=== PATIENT | female | born 1985 | race Caucasian/White ===

== ENCOUNTER 2016-10-11 04:55 | Emergency (ER) | payer MEDICAID ==
[2016-10-11 05:03] VITALS: BP 152/103
[2016-10-11] MEDS ORDERED: HYDROmorphone 1 MG/ML Syringe IM ONE (05:20)
[2016-10-11] MEDS ORDERED: Promethazine 25 MG/ML SDV IM ONE (05:22)
--- NOTE | 2016-10-11 05:22 | EDM.PDOC ---
ED HPI Trauma - General Chief Complaint: Upper Extremity Injury/Pain Stated Complaint: INJURED LEFT SHOULDER Time Seen by Provider: 10/11/16 05:15 Source: Reports: Patient History Limitations: Reports: No limitations - History of Present Illness INITIAL COMMENTS - FREE TEXT/NARRATIVE: 31-year-old female presents to the ED with an acute injury to her left anterior shoulder. Patient states that she was walking down the stairs and cat kept her up. She ended up hanging onto the banister with her left hand and the rest of her body continued on down the stairs and she landed on her buttocks. Her left hand remained attached to the banister. She therefore suffered an acute strain to the anterior aspect of her shoulder. Since injury she's not been able to abduct or externally rotate the shoulder. She has a numbness and tingling in the median nerve this nerve distribution i.e. thumb index finger and third finger of the left hand. Her left side of her neck is a bit sore as well but she does remember hitting her head on the stairs. Pain is rated as 10 out of 10 unable to sleep. She claimed that the buttock pain is quite mild.review occurred earlier this morning. Symptom Onset Date: 10/11/16 Occurred When: this morning Occurred Where: home Method of Injury: other (see history of present illness) Severity: severe Consciousness: Reports: no loss of consciousness, remembers incident, remembers coming to hosp Associated Symptoms: Reports: neck pain Allergies/ADRs: Allergies ceftriaxone sodium [From Rocephin] Allergy (Verified 10/11/16 05:03) Anaphylactic Shock cetirizine [From Zyrtec] Allergy (Verified 10/11/16 05:03) Hives diphenhydramine HCl [From Benadryl] Allergy (Verified 10/11/16 05:03) Anaphylactic Shock erythromycin base [Erythromycin Base] Allergy (Verified 10/11/16 05:03) Anaphylactic Shock hydrocodone bitartrate [From Vicodin] Allergy (Verified 10/11/16 05:03) Anaphylactic Shock Penicillins Allergy (Verified 10/11/16 05:03) Anaphylactic Shock prednisone Allergy (Verified 10/11/16 05:03) Anaphylactic Shock Sulfa (Sulfonamide Antibiotics) Allergy (Verified 10/11/16 05:03) Anaphylactic Shock Home Medications: Ambulatory Orders Metoprolol Tartrate [Lopressor] 12.5 mg PO Q12HR #60 tablet 08/09/16 amLODIPine [Norvasc] 10 mg PO DAILY #30 tablet 08/09/16 oxyCODONE HCl/Acetaminophen [Percocet 5-325 mg Tablet] 1 - 2 each PO Q4H PRN # 28 tablet 10/11/16 Past Medical History - Past Health History Medical/Surgical History: Denies Medical/Surgical History Cardiovascular History: Reports: Blood clots/VTE/DVT Other Cardiovascular History: DVT R leg Gastrointestinal History: Reports: Other (see below) Other Gastrointestinal History: adhesion 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 History: Reports: Renal calculus 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 OB/BYN History: 4 c-sections Neurological History: Reports: Headaches, chronic Hematologic History: Reports: Other (see below) (G6PD deficiency) Oncologic (Cancer) History: Reports: Leukemia - Infectious Disease History Infectious Disease History: Reports: Chicken pox - Past Surgical History GI Surgical History: Reports: Appendectomy, Cholecystectomy Female Surgical History: Reports: section, Tubal ligation Neurological Surgical History: Reports: None Musculoskeletal Surgical History: Reports: Other (see below) Other Musculoskeletal Surgeries/Procedures:: right knee pain in past Dermatological Surgical History: Reports: None Social & Family History - Family History Family Medical History: Noncontributory HEENT: Reports: Glaucoma Cardiac: Reports: Hypertension, [place] Neurological: Reports: CVA Oncologic: Reports: Cervix - Tobacco Use Smoking Status *Q: Unknown Ever Smoked Years of Tobacco use: 10 Packs/Tins Daily: 0.2 Used Tobacco, but Quit: No Second Hand Smoke Exposure: Yes - Caffeine Use Caffeine Use: Reports: Tea Other Caffeine Use: a lot everyday - Alcohol Use Days Per Week of Alcohol Use: 0 - Recreational Drug Use Recreational Drug Use: No Drug Use in Last 12 Months: Yes Recreational Drug Type: Reports: Other (see below) Other Recreational Drug Type: edible-marijuana candy in [place] a month ago - Living Situation & Occupation Living situation: Reports: single, with significant other (Fiance), with family (Daughter) Occupation: employed (Part-time at [employer], part-time at [employer] ) Review of Systems - Review of Systems Review Of Systems: See Below Constitutional: Denies: chills, diaphoresis, fever, weakness, other Eyes: Reports: no symptoms Ears: Reports: no symptoms Nose: Reports: no symptoms Mouth/Throat: Reports: no symptoms Respiratory: Reports: no symptoms Cardiovascular: Reports: no symptoms GI/Abdominal: Reports: No symptoms 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: Reports: no symptoms Musculoskeletal: Reports: neck pain, shoulder pain (left side.severe left anterior shoulder pain. See history present illness) Skin: Reports: no symptoms Neurological: Reports: numbness, tingling (in the immediate near distribution left hand. Feels it in her thumb index finger and third finger. This is and she fell with outstretched left hand attached to the banister.) Psychiatric: Reports: no symptoms Trauma Exam - Physical Exam Exam: See Below Exam Limited By: No limitations General Appearance: Reports: alert, WD/WN, moderate distress (appears to be in significant pain. Cleanse her left arm in full internal rotation against her chest.) Head: Reports: atraumatic, normocephalic Neck: Reports: limited range of motion, paraspinous muscle tender (left side particularly adjacent to 6 and 7.), tenderness (left lateral neck adjacent to 6 and 7.) Respiratory Exam: Reports: no respiratory distress, lungs clear, normal breath sounds, no accessory muscle use Cardiovascular: Reports: normal peripheral pulses, regular rate, rhythm, no edema, no murmur Extremities: Reports: other (very limited exam could be performed on the left shoulder at the time of examination due to limited ability to move it. Pain is over the anterior aspect of the true shoulder joint and joint capsule. Also some pain along the distribution of the pectoralis major muscle some tenderness over the coracoid process. He does not appear to be anteriorly dislocated. Suspect strain of pectoralis major and anterior portions of the deltoid due to the nature of her fall. No pain in the knee and sella to suggest teres minor or infraspinatus tear.) Neurologic: Reports: alert, normal mood/affect, oriented x 3, other Skin: Reports: Normal color, Warm/dry - [place] Coma Score Best Eye Response (Becky): (4) open spontaneously Best Verbal Response (Becky): (5) oriented Best Motor Response ([place]): (6) obeys commands [place] Total: 15 Course - Vital Signs Last Recorded V/S: Last Vital Signs Temp 35.9 C 10/11/16 05:01 Pulse 92 03/06/17 05:01 Resp 18 10/11/16 05:01 BP 152/103 H 10/11/16 05:01 Pulse Ox 100 10/11/16 05:01 - Orders/Labs/Meds Orders: Active Orders 24 hr Category Date Time Status Shoulder Comp Lt [CR] Stat Exams 10/11/16 05:19 Taken Meds: Medications Discontinued Medications Generic Name Dose Route Start Last Admin Trade Name Soniya PRN Reason Stop Dose Admin Hydromorphone HCl 1 mg 10/11/16 05:20 10/11/16 05:28 Dilaudid IM 10/11/16 05:21 1 mg ONETIME ONE Administration Promethazine HCl 25 mg 10/11/16 05:22 10/11/16 05:27 Phenergan IM 10/11/16 05:23 25 mg ONETIME ONE Administration - Radiology Interpretation Free Text/Narrative:: 31-year-old female presents to the ED with an acute injury to her left shoulder. She reports she was walking down the stairs and Tripped her up. She reached out to prevent falling with her left hand grabbing the banister. Her body continued to slide down the stairs and she landed hard on her Botox. Her left hand remained attached to the banister resulting in an acute strain of the left anterior aspect of her upper chest and anterior shoulder. She is unable to abduct or externally rotate the shoulder at this time. She keeps the arm in full internal rotation with her hand against her chest. She has good radial and ulnar pulses. She feels paresthesias in the distribution of the median nerve i.e. thumb index finger and third finger of the left hand since she fell. This suggests the possibility of a brachial plexus strain.before any x-rays can be done she will require some pain relief. We'll give her Dilaudid 1 mg IM and Phenergan 25 mg IM for acute pain and nausea relief. X-rays of the left shoulder will then be attempted. It's likely that she is straining the joint capsule and the surrounding musculature versus fracture or dislocation. - Re-Assessments/Exams Free Text/Narrative Re-Assessment/Exam: 10/11/16 06:20pain is better in the left shoulder since she had IM injection of Dilaudid 1 mg and Phenergan 25 mg. She is now able to allow the shoulder and arm to rest at her side. X-rays three-view of the left shoulder have been completed and they do not reveal any bony abnormalities or dislocations. I suspect she has partially strained the pectoralis major muscle where it inserts into the proximal humerus also the anterior deltoid muscle. With her history of paresthesias in the median nerve root distribution she may have contused or stretched or strained part of the brachial plexus as well. Only time will tell whether this settles down. She will be placed in a [id number] for the next 5-7 days or until she has some return of range of motion without pain. Percocet 5 325 one or 2 every 4-6 hours of sleep for pain management x20 tablets provided. Aleve 2 tablets every 8 hours for relief of pain and inflammation as well. Advise follow up with her normal care provider who home I believe is Meena menjivar in about 10 days' time for reassessment. She still has paresthesias she may well need MRI of the neck and brachial plexus show in the shoulder area. Ice pack to the area one half hour of every 4 hours today and tomorrow. Departure - Departure Time of Disposition: 06:22 Disposition: Home, Self-Care 01 Condition: fair Clinical Impression: Brachial plexus neuropathy Muscle strain, shoulder region Qualifiers: Encounter type: initial encounter Laterality: left Qualified Code(s): S46.912A - Strain of unspecified muscle, fascia and tendon at shoulder and upper arm level, left arm, initial encounter Prescriptions: oxyCODONE HCl/Acetaminophen [Percocet 5-325 mg Tablet] 1 - 2 each PO Q4H PRN # 28 tablet PRN Reason: pain relief. Referrals: Meena Menjivar PA [Primary Care Provider] - Forms: ED Department Discharge, Return to Work/School Form Additional Instructions: evaluation in the emergency department today in regards to acute injury to the left anterior shouldersecondary to a fall while going downstairs. The history would suggest a partial tear of the pectoralis major muscle where it inserts into the upper arm bone as well as strain of the anterior deltoid muscles in the front of the shoulder. X-rays of the shoulder were obtained once proper pain control was obtained and it reveals no fractures and normal position of the humeral head without evidence of dislocation. Concern for numbness and tingling in the median nerve distribution to the fingers suggest that the brachioplexus which is a group of nerves traveling into the armpit into the arm down to the hand may have been bruised or contused from the fall and injury. This takes time to heal. Treatment is left shoulder immobilizer for the next 5 days. He makes stop wearing it when she would have return of movement of your arm without tenderness pain in the shoulder. This may well be a full 10 days. Suggest Aleve 2 tablets every 8 hours to reduce pain and inflammation. Ice pack to the armpit one half hour out of every 4 hours today and tomorrow. May use Percocet 5 /325 mg tablets one or 2 every 4-6 hours necessary for pain relief not IV for pain not controlled by Aleve alone. Suggest followup with her normal care provider in 10 days' time. - My Orders Last 24 Hours: My Active Orders 10/11/16 05:19 Shoulder Comp Lt [CR] Stat - Assessment/Plan Last 24 Hours: My Active Orders 10/11/16 05:19 Shoulder Comp Lt [CR] Stat
--- NOTE | 2016-10-11 08:10 | CR ---
Left shoulder: Three views of the left shoulder were obtained. Comparison: No previous shoulder study. Glenohumeral joint and acromioclavicular joint appear unremarkable. No fracture or other abnormality is seen. Impression: 1. No abnormality is identified on three-view left shoulder study. Diagnostic code #1
== END 2016-10-11 06:35 | disposition home or self-care (01) ==
LOC: JD.ED 04:55
DX: S46.912A Strain of unspecified muscle, fascia and tendon at shoulder and upper arm level, left arm, initial encounter (principal); G54.0 Brachial plexus disorders; Z88.0 Allergy status to penicillin; Z88.2 Allergy status to sulfonamides; Z88.1 Allergy status to other antibiotic agents; Z90.49 Acquired absence of other specified parts of digestive tract; Z98.51 Tubal ligation status; Z88.8 Allergy status to other drugs, medicaments and biological substances; W01.0XXA Fall on same level from slipping, tripping and stumbling without subsequent striking against object, initial encounter
CPT/HCPCS: 73030; 96372; 99283; J1170; J2550; 99284

== ENCOUNTER 2016-11-09 04:26 | Emergency (ER) | payer MEDICAID ==
[2016-11-09 04:34] VITALS: BP 144/101
[2016-11-09] MEDS ORDERED: hydrOXYzine HCl 25 MG Tab PO ONE (05:17)
[2016-11-09] MEDS ORDERED: Lidocaine/EPINEPHrine/Tetracaine Soln 1 ML TOP STA (05:45)
--- NOTE | 2016-11-09 05:51 | EDM.PDOC ---
ED HPI Allergic Reaction - General Chief Complaint: Allergic Reaction Stated Complaint: POSS ALLERGIC REACTION Time Seen by Provider: 11/09/16 04:43 Source of Information: Reports: Patient, RN notes reviewed History Limitations: Reports: No limitations - History of Present Illness INITIAL COMMENTS - FREE TEXT/NARRATIVE: The patient states that she developed generalized pruritus around 04:00 this morning, but that it is most intense on her face. She states that she does not wear makeup, and has no idea why she would have this reaction. There is erythema around the patient's mouth and nasolabial folds, likely where the patient has been scratching, otherwise, she does not have any visible lesions. No shortness of breath or wheezing. No symptoms of angioedema. She states that she took a Claritin just after this developed, but that it has not helped. She states that she has had this in the past, but not as severe. She reports allergies to Benadryl, Jennie, Zyrtec, and prednisone. - Related Data Allergies/ADRs: Allergies Allergy/AdvReac Type Severity Reaction Status Date / Time ceftriaxone sodium Allergy Anaphylactic Verified 10/11/16 05:03 [From Rocephin] Shock cetirizine [From Zyrtec] Allergy Hives Verified 10/11/16 05:03 diphenhydramine HCl Allergy Anaphylactic Verified 10/11/16 05:03 [From Benadryl] Shock erythromycin base Allergy Anaphylactic Verified 10/11/16 05:03 [Erythromycin Base] Shock hydrocodone bitartrate Allergy Anaphylactic Verified 10/11/16 05:03 [From Vicodin] Shock Penicillins Allergy Anaphylactic Verified 10/11/16 05:03 Shock prednisone Allergy Anaphylactic Verified 10/11/16 05:03 Shock Sulfa (Sulfonamide Allergy Anaphylactic Verified 10/11/16 05:03 Antibiotics) Shock Home Meds: Home Meds amLODIPine [Norvasc] 10 mg PO DAILY #30 tablet 08/09/16 [Rx] Metoprolol Succinate [Toprol XL] 25 mg PO DAILY 11/09/16 [History] Past Medical History Cardiovascular History: Reports: Blood clots/VTE/DVT Other Cardiovascular History: DVT R leg 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 History: Reports: Renal calculus 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 OB/BYN History: 4 c-sections Neurological History: Reports: Headaches, chronic Endocrine/Metabolic History: Reports: Obesity/BMI 30+ Hematologic History: Reports: Other (see below) (G6PD deficiency) Oncologic (Cancer) History: Reports: Leukemia - Infectious Disease History Infectious Disease History: Reports: Chicken pox - Past Surgical History GI Surgical History: Reports: Appendectomy, Cholecystectomy Female Surgical History: Reports: section, Tubal ligation Neurological Surgical History: Reports: None Musculoskeletal Surgical History: Reports: Other (see below) Other Musculoskeletal Surgeries/Procedures:: right knee pain in past Dermatological Surgical History: Reports: None Social & Family History - Family History Family Medical History: Noncontributory HEENT: Reports: Glaucoma Cardiac: Reports: Hypertension, [place] Neurological: Reports: CVA Oncologic: Reports: Cervix - Tobacco Use Smoking Status *Q: Current Every Day Smoker Years of Tobacco use: 10 Packs/Tins Daily: 0.5 Used Tobacco, but Quit: No Second Hand Smoke Exposure: Yes - Caffeine Use Caffeine Use: Reports: Tea Other Caffeine Use: a lot everyday - Alcohol Use Alcohol Use History: No Days Per Week of Alcohol Use: 0 - Recreational Drug Use Recreational Drug Use: Yes Drug Use in Last 12 Months: Yes Recreational Drug Type: Reports: Other (see below) Other Recreational Drug Type: edible-marijuana candy in [place] a month ago - Living Situation & Occupation Living situation: Reports: single, with significant other (Fiance), with family (Daughter) Occupation: employed (Part-time at [employer]) ED ROS ALLERGIC REACTION - Review of Systems Review Of Systems: See Below Constitutional: Reports: no symptoms HEENT: Reports: No symptoms Respiratory: Reports: No Symptoms Cardiovascular: Reports: No symptoms Endocrine: Reports: no symptoms GI/Abdominal: Reports: Diarrhea (11/04/16), Vomiting (11/04/16) : Reports: no symptoms Musculoskeletal: Reports: no symptoms Skin: Reports: no symptoms Neurological: Reports: No Symptoms Psychiatric: Reports: No symptoms Hematologic/Lymphatic: Reports: no symptoms Immunologic: Reports: no symptoms ED EXAM GENERAL NO PERIP PULSE - Physical Exam Exam: See Below Exam Limited By: No limitations General Appearance: alert, WD/WN, no apparent distress Eye Exam: bilateral eye: EOMI, normal inspection Ears: normal external exam, hearing grossly normal Nose: normal inspection, no blood Throat/Mouth: Normal inspection, Normal lips, Normal teeth, Normal gums, Normal oropharynx, Normal voice, No airway compromise Head: atraumatic, normocephalic Neck: normal inspection, full range of motion Respiratory/Chest: no respiratory distress, lungs clear, normal breath sounds, no accessory muscle use Cardiovascular: normal peripheral pulses, regular rate, rhythm, no gallop, no JVD, no murmur, no rub GI/Abdominal: normal bowel sounds, soft, non tender, no organomegaly, no distention, no abnormal bruit, no mass, other (Obese) Back Exam: normal inspection Extremities: normal inspection, normal range of motion, no pedal edema, normal capillary refill Neurological: alert, oriented, normal cognition, no motor/sensory deficits Psychiatric: normal affect Skin Exam: Warm, Dry, Intact, Normal color, Erythema (around mouth and nasolabial folds. Remainder of face without lesions.) Lymphatic: no adenopathy Course - Vital Signs Last Recorded V/S: Last Vital Signs Temp 36.4 C 11/09/16 04:32 Pulse 83 11/09/16 04:32 Resp 16 11/09/16 04:32 BP 144/101 H 11/09/16 04:32 Pulse Ox 100 11/09/16 04:32 - Orders/Labs/Meds Meds: Medications Discontinued Medications Generic Name Dose Route Start Last Admin Trade Name Freq PRN Reason Stop Dose Admin Hydroxyzine HCl 25 mg 11/09/16 05:17 11/09/16 05:29 Atarax PO 11/09/16 05:18 25 mg ONETIME ONE Administration Lidocaine/Tetracaine 2 ml 11/09/16 05:45 11/09/16 05:48 Let Soln TOP 11/09/16 05:46 2 ml ONETIME STA Administration - Re-Assessments/Exams Free Text/Narrative Re-Assessment/Exam: 11/09/16 05:52 The cause of the patient's urticaria is unknown. She has been given oral hydroxyzine 25 mg, so far without relief. I have ordered some topical LET to the erythematous areas on her face, where she is most pruritic, to see if that helps, however, if it does not, the patient may need to see an health care law specialist, as she reports allergies to numerous medicines, including prednisone, and the treatment of idiopathic pruritus may be beyond the abilities of an ED. 11/09/16 06:11 The patient reports substantial improvement in her facial pruritus following the application of LET, and the erythema around her mouth and nasolabial folds has resolved. I will refer her to an Wall Man. Departure - Departure Time of Disposition: 06:11 Disposition: Home, Self-Care 01 Condition: good Clinical Impression: Generalized pruritus Referrals: Tr Ivory MD [Ordering Only Provider] - Forms: ED Department Discharge Additional Instructions: You were seen in the emergency room this morning for itchiness all over, particularly on your face. Your symptoms significantly improved after treatment with the antihistamine hydroxyzine, and application of LET to your face. Until this episode has resolved, try to avoid heat, as that tends to make itchiness worse. We are recommending that you be evaluated by an [facility] Man. Please followup with Dr. Ivory at the next available appointment. If any other problems, please do not hesitate to return to the ER.
== END 2016-11-09 06:20 | disposition home or self-care (01) ==
LOC: JD.ED 04:26
DX: L29.9 Pruritus, unspecified (principal); F17.210 Nicotine dependence, cigarettes, uncomplicated; E66.9 Obesity, unspecified; Z68.30 Body mass index [BMI] 30.0-30.9, adult; Z86.718 Personal history of other venous thrombosis and embolism; Z85.6 Personal history of leukemia; Z79.899 Other long term (current) drug therapy; Z88.0 Allergy status to penicillin; Z88.2 Allergy status to sulfonamides; Z88.8 Allergy status to other drugs, medicaments and biological substances; Z90.49 Acquired absence of other specified parts of digestive tract; Z98.890 Other specified postprocedural states; Z88.1 Allergy status to other antibiotic agents
CPT/HCPCS: 99283; A9270

== ENCOUNTER 2016-12-21 23:52 | Emergency (ER) | payer MEDICAID ==
[2016-12-22 00:06] VITALS: BP 156/94
[2016-12-22] MEDS ORDERED: Cephalexin 500 MG Cap PO ONE (00:34)
[2016-12-22] MEDS ORDERED: Ibuprofen 600 MG Tab PO ONE (00:35)
--- NOTE | 2016-12-22 00:41 | EDM.PDOC ---
ED HPI GENERAL MEDICAL PROBLEM - General Chief Complaint: Laceration Stated Complaint: CUT ON RIGHT THIGH Time Seen by Provider: 12/22/16 00:06 Source of Information: Reports: Patient, RN Notes Reviewed History Limitations: Reports: No Limitations - History of Present Illness INITIAL COMMENTS - FREE TEXT/NARRATIVE: The patient states that she was cleaning a shelf in her bedroom, when her cat jumped up, knocking a hunting knife of her boyfriends off the shelf. The knife stabbed into her right inner thigh. She is otherwise uninjured. The patient states that her last tetanus vaccination was in 2013. Right Leg Pain Score (Numeric/FACES): 7 - Related Data Allergies Allergy/AdvReac Type Severity Reaction Status Date / Time ceftriaxone sodium Allergy Anaphylactic Verified 12/22/16 00:07 [From Rocephin] Shock cetirizine [From Zyrtec] Allergy Hives Verified 12/22/16 00:07 diphenhydramine HCl Allergy Anaphylactic Verified 12/22/16 00:07 [From Benadryl] Shock erythromycin base Allergy Anaphylactic Verified 12/22/16 00:07 [Erythromycin Base] Shock hydrocodone bitartrate Allergy Anaphylactic Verified 12/22/16 00:07 [From Vicodin] Shock Penicillins Allergy Anaphylactic Verified 12/22/16 00:07 Shock prednisone Allergy Anaphylactic Verified 12/22/16 00:07 Shock Sulfa (Sulfonamide Allergy Anaphylactic Verified 12/22/16 00:07 Antibiotics) Shock Home Meds: Home Meds amLODIPine [Norvasc] 10 mg PO DAILY #30 tablet 08/09/16 [Rx] Metoprolol Succinate [Toprol XL] 25 mg PO DAILY 11/09/16 [History] Cephalexin [Keflex] 1 tab PO Q12H #14 capsule 12/22/16 [Rx] Past Medical History Cardiovascular History: Reports: Blood Clots/VTE/DVT (RLE) 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 History: Reports: Renal Calculus 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: Neurological History: Reports: Headaches, Chronic Endocrine/Metabolic History: Reports: Obesity/BMI 30+ Hematologic History: Reports: Anemia Oncologic (Cancer) History: Reports: Leukemia - Infectious Disease History Infectious Disease History: Reports: Chicken Pox - Past Surgical History GI Surgical History: Reports: Appendectomy, Cholecystectomy Female Surgical History: Reports: Section (x 4), Tubal Ligation Musculoskeletal Surgical History: Reports: Other (See Below) (Ankle surgery) Social & Family History - Family History Family Medical History: Noncontributory HEENT: Reports: Glaucoma Cardiac: Reports: Hypertension, [place] Neurological: Reports: CVA Oncologic: Reports: Cervix - Tobacco Use Smoking Status *Q: Current Some Day Smoker Years of Tobacco use: 17 Packs/Tins Daily: 0.5 Used Tobacco, but Quit: No Second Hand Smoke Exposure: Yes - Caffeine Use Caffeine Use: Reports: Coffee Other Caffeine Use: a lot everyday - Alcohol Use Days Per Week of Alcohol Use: 0 - Recreational Drug Use Recreational Drug Use: No Drug Use in Last 12 Months: Yes Recreational Drug Type: Reports: Other (see below) Other Recreational Drug Type: edible-marijuana candy in [place] a month ago - Living Situation & Occupation Living situation: Reports: Single, with Significant Other, with Family Occupation: Employed ED ROS GENERAL - Review of Systems Review Of Systems: See Below Constitutional: Reports: No Symptoms HEENT: Reports: No Symptoms Respiratory: Reports: No Symptoms Cardiovascular: Reports: No Symptoms Endocrine: Reports: No Symptoms GI/Abdominal: Reports: No Symptoms : Reports: No Symptoms Musculoskeletal: Reports: No Symptoms Skin: Reports: No Symptoms Neurological: Reports: No Symptoms Psychiatric: Reports: No Symptoms Hematologic/Lymphatic: Reports: No Symptoms Immunologic: Reports: No Symptoms ED EXAM, SKIN/RASH Exam: See Below Exam Limited By: No Limitations General Appearance: Alert, WD/WN, No Apparent Distress Extremities: Other (Approximately 0.75 cm wound to the inner right thigh, just distal to half way down. The wound appears to be clean, and is not currently bleeding. No associated swelling, ecchymosis, or abrasions. Neurovascular status of the right lower study is intact.) Course - Vital Signs Last Recorded V/S: Last Vital Signs Temp 37.5 C 12/22/16 00:00 Pulse 89 12/22/16 00:00 Resp 20 12/22/16 00:00 BP 156/94 H 12/22/16 00:00 Pulse Ox 100 12/22/16 00:00 - Orders/Labs/Meds Meds: Medications Discontinued Medications Generic Name Dose Route Start Last Admin Trade Name Freq PRN Reason Stop Dose Admin Cephalexin 500 mg 12/22/16 00:34 12/22/16 00:39 Keflex PO 12/22/16 00:35 500 mg ONETIME ONE Administration Ibuprofen 600 mg 12/22/16 00:35 12/22/16 00:39 Motrin PO 12/22/16 00:36 600 mg ONETIME ONE Administration - Re-Assessments/Exams Free Text/Narrative Re-Assessment/Exam: 12/22/16 00:35 The patient has a puncture wound to her right inner thigh. Closure is contraindicated. The wound is not actively bleeding. I will have the nurse apply a clean dressing. I will start the patient on Keflex. Departure - Departure Time of Disposition: 00:36 Disposition: Home, Self-Care 01 Condition: good Clinical Impression: Puncture wound of right thigh - Discharge Information Prescriptions: Cephalexin [Keflex] 1 tab PO Q12H #14 capsule Referrals: Meena Thapa PA [Primary Care Provider] - Forms: ED Department Discharge Additional Instructions: You were seen in the emergency room after accidentally being cut on your right thigh by a hunting knife that fell. On examination, you have a puncture wound. This wound was not sutured closed, because that would increase the likelihood of an infection. Keep the wound clean with ordinary soap and water, then apply a clean dressing, daily. You have been started on the antibiotic Keflex. Take one tablet every 12 hours , as prescribed. Finish the entire prescription unless told otherwise by a doctor. Take [id number] ibuprofen 2-3 tablets (400-600 mg) every 8 hours, with food, as needed for discomfort. Followup with your PCP, Meena Thapa, for any concerns. If any other problems, please do not hesitate to return to the ER.
== END 2016-12-22 00:55 | disposition home or self-care (01) ==
LOC: JD.ED 23:52
DX: S71.131A Puncture wound without foreign body, right thigh, initial encounter (principal); W26.0XXA Contact with knife, initial encounter; E66.9 Obesity, unspecified; D64.9 Anemia, unspecified; F17.210 Nicotine dependence, cigarettes, uncomplicated; Z85.6 Personal history of leukemia; Z86.718 Personal history of other venous thrombosis and embolism; Z90.49 Acquired absence of other specified parts of digestive tract; Z79.899 Other long term (current) drug therapy; Z88.2 Allergy status to sulfonamides; Z98.890 Other specified postprocedural states; Z88.0 Allergy status to penicillin; Z88.1 Allergy status to other antibiotic agents; Z88.8 Allergy status to other drugs, medicaments and biological substances
CPT/HCPCS: 99283; A9270

== ENCOUNTER 2017-04-14 23:17 | Emergency (ER) | payer MEDICAID ==
[2017-04-14 23:29] VITALS: BP 151/108
--- NOTE | 2017-04-15 00:11 | EDM.PDOC ---
ED HPI GENERAL MEDICAL PROBLEM - General Chief Complaint: Chest Pain Stated Complaint: CHEST PAIN Time Seen by Provider: 04/14/17 23:37 Source of Information: Reports: Patient, RN Notes Reviewed History Limitations: Reports: No Limitations - History of Present Illness INITIAL COMMENTS - FREE TEXT/NARRATIVE: The patient states that she developed a headache around 22:30 tonight, followed by sudden onset left anterior chest pain around 23:00. She reports the character as a pressure or squeezing pain, not discomfort. She states that it radiates across her chest to the right, then up the right side of her neck to her jaw. Pain is worse if she takes a deep breath, but the pain is not modified by body position. She reports some on and off nausea, but denies dyspnea, diaphoresis, and sense of impending doom. She states that she feels hot and cold. She states that she had the same chest pain on 08/07/2016. She states that she was seen in this ED, admitted to the hospital, but her workup was negative. The patient's PCP is either Meena Thapa or Radha Leong. Mid-Sternal Chest Pain Score (Numeric/FACES): 7 - Related Data Allergies Allergy/AdvReac Type Severity Reaction Status Date / Time ceftriaxone sodium Allergy Anaphylactic Verified 04/14/17 23:25 [From Rocephin] Shock cetirizine [From Zyrtec] Allergy Hives Verified 04/14/17 23:25 diphenhydramine HCl Allergy Anaphylactic Verified 04/14/17 23:25 [From Benadryl] Shock erythromycin base Allergy Anaphylactic Verified 04/14/17 23:25 [Erythromycin Base] Shock hydrocodone bitartrate Allergy Anaphylactic Verified 04/14/17 23:25 [From Vicodin] Shock Penicillins Allergy Anaphylactic Verified 04/14/17 23:25 Shock prednisone Allergy Anaphylactic Verified 04/14/17 23:25 Shock Sulfa (Sulfonamide Allergy Anaphylactic Verified 04/14/17 23:25 Antibiotics) Shock Home Meds: Home Meds Metoprolol Succinate [Toprol XL] 25 mg PO DAILY 11/09/16 [History] Orphenadrine [Norflex] 1 tab PO Q12H #10 tab.er 04/15/17 [Rx] Past Medical History Cardiovascular History: Reports: Blood Clots/VTE/DVT (left calf DVT), Hypertension 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 History: Reports: Renal Calculus 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: Neurological History: Reports: Headaches, Chronic Endocrine/Metabolic History: Reports: Obesity/BMI 30+ Hematologic History: Reports: Anemia, Blood Transfusion(s) Oncologic (Cancer) History: Reports: Leukemia - Infectious Disease History Infectious Disease History: Reports: Chicken Pox - Past Surgical History HEENT Surgical History: Reports: Oral Surgery ([place] teeth extraction) Cardiovascular Surgical History: Reports: Vascular Surgery (Left leg thrombectomy) GI Surgical History: Reports: Appendectomy, Cholecystectomy Female Surgical History: Reports: Section (x 4), Tubal Ligation Musculoskeletal Surgical History: Reports: ORIF (Left ankle) Social & Family History - Family History Family Medical History: Noncontributory HEENT: Reports: Glaucoma Cardiac: Reports: Hypertension, [place] Neurological: Reports: CVA Oncologic: Reports: Cervix - Tobacco Use Smoking Status *Q: Current Every Day Smoker Years of Tobacco use: 13 Packs/Tins Daily: 0.3 Packs/Tins Daily Comment: Down from 1 ppd - Caffeine Use Caffeine Use: Reports: Coffee Other Caffeine Use: a lot everyday - Alcohol Use Alcohol Use History: Yes Days Per Week of Alcohol Use: 0 Alcohol Use Frequency: Rarely - Recreational Drug Use Recreational Drug Use: Yes Drug Use in Last 12 Months: Yes Recreational Drug Type: Reports: Marijuana/Hashish (when visits [place]) - Living Situation & Occupation Living situation: Reports: Single, with Significant Other (Fiance), with Family (Daughter) Occupation: Unemployed ED ROS GENERAL - Review of Systems Review Of Systems: See Below Constitutional: Reports: No Symptoms HEENT: Reports: No Symptoms Respiratory: Reports: No Symptoms Cardiovascular: Reports: No Symptoms Endocrine: Reports: No Symptoms GI/Abdominal: Reports: No Symptoms : Reports: No Symptoms Musculoskeletal: Reports: No Symptoms Skin: Reports: No Symptoms Neurological: Reports: No Symptoms Psychiatric: Reports: No Symptoms Hematologic/Lymphatic: Reports: No Symptoms Immunologic: Reports: No Symptoms ED EXAM, GENERAL - Physical Exam Exam: See Below Exam Limited By: No Limitations General Appearance: Alert, WD/WN, No Apparent Distress Eye Exam: Bilateral Eye: Normal Inspection Ears: Normal External Exam, Hearing Grossly Normal Nose: Normal Inspection, No Blood Throat/Mouth: Normal Inspection, Normal Lips, Normal Voice, No Airway Compromise Head: Atraumatic, Normocephalic Neck: Normal Inspection, Full Range of Motion Respiratory/Chest: No Respiratory Distress, Lungs Clear, Normal Breath Sounds, No Accessory Muscle Use, Other (Reproducible tenderness to palpation of the left pectoralis muscle. Pain is induced in the right chest and right neck with pressing hands together in front of her chest. Pain is reproduced on the left with crossing the left upper extremity across the chest.). No: Crackles, Rhonchi, Wheezing, Pleural Rub Cardiovascular: Normal Peripheral Pulses, Regular Rate, Rhythm, No Gallop, No JVD, No Murmur, No Rub GI/Abdominal: Normal Bowel Sounds, Soft, Non-Tender, No Organomegaly, No Distention, No Abnormal Bruit, No Mass, Other (Obese) (Female) Exam: Deferred Rectal (Female) Exam: Deferred Back Exam: Normal Inspection, Full Range of Motion, NT Extremities: Normal Inspection, Normal Range of Motion, No Pedal Edema, Normal Capillary Refill Neurological: Alert, Oriented, Normal Cognition, No Motor/Sensory Deficits Psychiatric: Normal Affect Skin Exam: Warm, Dry, Intact, Normal Color, No Rash Course - Vital Signs Last Recorded V/S: Last Vital Signs Temp 37.1 C 04/14/17 23:26 Pulse 88 04/14/17 23:26 Resp 22 H 04/14/17 23:26 BP 151/108 H 04/14/17 23:26 Pulse Ox 97 04/14/17 23:26 - Orders/Labs/Meds Orders: Active Orders 24 hr Category Date Time Status Chest 2V [CR] Stat Exams 04/15/17 00:04 Taken Orphenadrine [Norflex] Med 04/15/17 00:32 Stat 100 mg PO ONETIME STA - Re-Assessments/Exams Free Text/Narrative Re-Assessment/Exam: 04/15/17 00:29 Two-view chest radiograph appears to be grossly normal. Cardiac silhouette is within normal limits. No pulmonary vascular congestion. No pleural effusions. No focal infiltrate. No pneumothorax. Formal read per the Radiologist pending. 04/15/17 00:32 Chest x-ray results discussed with the patient. The patient's left sided chest pain radiating to the right, and up the neck appear to be musculoskeletal in etiology. Her headache may very well be a tension-type, as well. I am going to start the patient on Norflex, and e-prescribe a few days of the same. Departure - Departure Time of Disposition: 00:33 Disposition: Home, Self-Care 01 Condition: Good Clinical Impression: Musculoskeletal chest pain, Tension type headache - Discharge Information Referrals: Ynes Leong PA [Primary Care Provider] - Forms: ED Department Discharge Additional Instructions: You were seen in the emergency room for left-sided chest pain that radiated to your right chest and up the right side of her neck, along with a headache. Workup in the ER included a chest x-ray, which was normal. Based on your history and physical examination, your symptoms are MOST LIKELY due to a muscle spasm. You have been started on the muscle relaxant Norflex. Take one tablet every 12 hours, as prescribed. You may also take [id number] Tylenol or ibuprofen as needed for discomfort. Follow-up with your PCP, Meena Thapa or Radha Leong, as needed. If any other problems, please do not hesitate to return to the ER. - My Orders Last 24 Hours: My Active Orders 04/15/17 00:04 Chest 2V [CR] Stat 04/15/17 00:32 Orphenadrine [Norflex] 100 mg PO ONETIME STA - Assessment/Plan Last 24 Hours: My Active Orders 04/15/17 00:04 Chest 2V [CR] Stat 04/15/17 00:32 Orphenadrine [Norflex] 100 mg PO ONETIME STA
[2017-04-15] MEDS ORDERED: Orphenadrine 100 MG Tab.ER PO STA (00:32)
--- NOTE | 2017-04-15 08:33 | CR ---
Chest: Two views of the chest were obtained. Comparison: Prior chest x-ray and chest CT of 08/08/16. Heart size and mediastinum are normal. Lungs are clear. Bony structures appear within normal limits. Surgical clips are noted from prior cholecystectomy. Impression: 1. Nothing acute is identified on two-view chest x-ray. Diagnostic code #1
== END 2017-04-15 00:45 | disposition home or self-care (01) ==
LOC: JD.ED 23:17
DX: R07.89 Other chest pain (principal); G44.209 Tension-type headache, unspecified, not intractable; E66.9 Obesity, unspecified; I10 Essential (primary) hypertension; F17.210 Nicotine dependence, cigarettes, uncomplicated; Z90.49 Acquired absence of other specified parts of digestive tract; Z88.8 Allergy status to other drugs, medicaments and biological substances; Z88.1 Allergy status to other antibiotic agents; Z88.0 Allergy status to penicillin; Z88.2 Allergy status to sulfonamides; Z79.899 Other long term (current) drug therapy; Z87.442 Personal history of urinary calculi; Z86.2 Personal history of diseases of the blood and blood-forming organs and certain disorders involving the immune mechanism; Z68.33 Body mass index [BMI] 33.0-33.9, adult
CPT/HCPCS: 71020; 99285; A9270; 99284

== ENCOUNTER 2017-06-26 18:17 | Emergency (ER) | payer MEDICAID ==
[2017-06-26 18:37] VITALS: BP 180/126
[2017-06-26] MEDS ORDERED: Doxycycline 100 MG Cap PO ONE (19:39)
--- NOTE | 2017-06-26 19:43 | EDM.PDOC ---
ED HPI GENERAL MEDICAL PROBLEM - General Chief Complaint: Skin Complaint Stated Complaint: WOUND ON STOMACH Time Seen by Provider: 06/26/17 19:25 Source of Information: Reports: Patient History Limitations: Reports: No Limitations - History of Present Illness INITIAL COMMENTS - FREE TEXT/NARRATIVE: 32 year old female presents for evaluation and treatment of a a bug bit to the left lower abdomen. First appreciated an area or pruritus and discomfort to the left lower abdomen on Tuesday. She believes she was bitten by a bug but did not witness any big bites. Reports today he area has now become painful, warm and erythematous. Reports prior to arrival in the ER the area opened and began draining pus. Reports associated symptoms of chills, nausea, bodyaches and malaise. No fevers or vomiting. No history of cellulites and abscesses. No history of MRSA. No history of diabetes. Generalized Pain Score (Numeric/FACES): 6 - Related Data Allergies Allergy/AdvReac Type Severity Reaction Status Date / Time ceftriaxone sodium Allergy Anaphylactic Verified 06/26/17 18:33 [From Rocephin] Shock cetirizine [From Zyrtec] Allergy Hives Verified 06/26/17 18:33 diphenhydramine HCl Allergy Anaphylactic Verified 06/26/17 18:33 [From Benadryl] Shock erythromycin base Allergy Anaphylactic Verified 06/26/17 18:33 [Erythromycin Base] Shock hydrocodone bitartrate Allergy Anaphylactic Verified 06/26/17 18:33 [From Vicodin] Shock Penicillins Allergy Anaphylactic Verified 06/26/17 18:33 Shock prednisone Allergy Anaphylactic Verified 06/26/17 18:33 Shock Sulfa (Sulfonamide Allergy Anaphylactic Verified 06/26/17 18:33 Antibiotics) Shock Home Meds: Home Meds Doxycycline [Vibramycin] 100 mg PO Q12HR #19 cap 06/26/17 [Rx] Past Medical History Cardiovascular History: Reports: Hypertension 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 History: Reports: Renal Calculus 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: Neurological History: Reports: Headaches, Chronic Endocrine/Metabolic History: Reports: Obesity/BMI 30+ Hematologic History: Reports: Anemia, Blood Transfusion(s) Oncologic (Cancer) History: Reports: Leukemia - Infectious Disease History Infectious Disease History: Reports: Chicken Pox - Past Surgical History HEENT Surgical History: Reports: Oral Surgery GI Surgical History: Reports: Appendectomy, Cholecystectomy Female Surgical History: Reports: Section, Tubal Ligation Other Female Surgeries/Procedures: c secx4 Musculoskeletal Surgical History: Reports: ORIF Dermatological Surgical History: Reports: None Social & Family History - Family History Family Medical History: Noncontributory HEENT: Reports: Glaucoma Cardiac: Reports: Hypertension, [place] Neurological: Reports: CVA Oncologic: Reports: Cervix - Tobacco Use Smoking Status *Q: Current Every Day Smoker Years of Tobacco use: 10 Packs/Tins Daily: 0.4 - Caffeine Use Caffeine Use: Reports: Soda Other Caffeine Use: a lot everyday - Alcohol Use Days Per Week of Alcohol Use: 0 - Recreational Drug Use Recreational Drug Use: No Drug Use in Last 12 Months: Yes Recreational Drug Type: Reports: Marijuana/Hashish (when visits [place]) - Living Situation & Occupation Living situation: Reports: Single, with Significant Other (Fiance), with Family (Daughter) Occupation: Unemployed ED ROS GENERAL - Review of Systems Review Of Systems: See Below Constitutional: Reports: Chills, Malaise, Other (body aches). Denies: Fever GI/Abdominal: Reports: Nausea. Denies: Vomiting Skin: Reports: Erythema (lower abdomen), Wound (lower abdomen) ED EXAM, SKIN/RASH Exam: See Below Exam Limited By: No Limitations General Appearance: Alert, WD/WN, No Apparent Distress Respiratory/Chest: No Respiratory Distress Neurological: Alert, Oriented, Normal Cognition Psychiatric: Normal Affect, Normal Mood Skin: Warm, Dry, Normal Color, Erythema (approximatley 15cm x 8cm area of erythema to the left lower abdomen with a central golf ball sized indurated marin ; a 1.5 cm open area is in hte center and draining prurlent materaial) Location, Skin: Abdomen Characteristics: Erythematous Associated features: Warmth, Tenderness, Induration, Weeping Course - Vital Signs Last Recorded V/S: Last Vital Signs Temp 37.6 C 06/26/17 18:33 Pulse 115 H 06/26/17 18:33 Resp 17 06/26/17 18:33 BP 180/126 H 06/26/17 18:33 Pulse Ox 98 06/26/17 18:33 - Orders/Labs/Meds Meds: Medications Discontinued Medications Generic Name Dose Route Start Last Admin Trade Name Freq PRN Reason Stop Dose Admin Doxycycline Hyclate 200 mg 06/26/17 19:39 06/26/17 19:43 Vibramycin PO 06/26/17 19:40 200 mg ONETIME ONE Administration - Re-Assessments/Exams Free Text/Narrative Re-Assessment/Exam: 06/26/17 19:36 culture obtained. Will start doxycycline. Follow-up wiht PCP. Discharge instructions as documented. Departure - Departure Time of Disposition: 19:40 Disposition: Home, Self-Care 01 Condition: Fair Clinical Impression: Cellulitis and abscess of trunk - Discharge Information Prescriptions: Doxycycline [Vibramycin] 100 mg PO Q12HR #19 cap Instructions: Cellulitis, Adult Referrals: Ynes Leong PA [Primary Care Provider] - Forms: ED Department Discharge Additional Instructions: Doxycycline 1 tab twice a day for 10 days. your first dose given in the ER. Start your perception tomorrow. [id number] Tylenol or Motrin as needed for pain relief. Follow-up with your primary care provider in one week for recheck of your symptoms. Warm compresses to the area 4 or 5 times a day for 10-15 minutes Keep the wound covered. Please return to the ER if your symptoms change or worsen.
== END 2017-06-26 19:54 | disposition home or self-care (01) ==
LOC: JD.ED 18:17
DX: L03.311 Cellulitis of abdominal wall (principal); L02.211 Cutaneous abscess of abdominal wall; B95.7 Other staphylococcus as the cause of diseases classified elsewhere; F17.210 Nicotine dependence, cigarettes, uncomplicated; I10 Essential (primary) hypertension; Z88.0 Allergy status to penicillin; Z88.2 Allergy status to sulfonamides; Z88.1 Allergy status to other antibiotic agents; Z88.8 Allergy status to other drugs, medicaments and biological substances
CPT/HCPCS: 87070; 87186; 99283; A9270

== ENCOUNTER 2017-09-02 01:55 | Emergency (ER) | payer MEDICAID ==
[2017-09-02 02:06] VITALS: BP 182/114
--- NOTE | 2017-09-02 03:19 | EDM.PDOC ---
ED HPI GENERAL MEDICAL PROBLEM - General Chief Complaint: Chest Pain Stated Complaint: [facility] Time Seen by Provider: 09/02/17 02:25 Source of Information: Reports: Patient History Limitations: Reports: No Limitations - History of Present Illness INITIAL COMMENTS - FREE TEXT/NARRATIVE: The patient states that she developed chest pressure, felt from her right chest through to her left chest, her left shoulder, and left scapular area around 10: 00 yesterday, 09/01/2017. It became a pain around 14:00. She developed the sensation of having an elevated heart rate around 17:00, then developed nausea and emesis around 22:30. She denies having associated dyspnea, diaphoresis, or sense of impending doom. No prior similar symptoms. The patient has a history of a left lower extremity DVT in 2008, associated with . She denies having recent lower extremity swelling or discomfort. The patient has a history of hypertension, but is off her antihypertensive medication, citing insurance issues. The patient's PCP is Ynes Loeng. Left Chest Pain Score (Numeric/FACES): 5 - Related Data Allergies Allergy/AdvReac Type Severity Reaction Status Date / Time aspirin Allergy Vomiting Verified 09/02/17 02:03 ceftriaxone sodium Allergy Anaphylactic Verified 09/02/17 02:02 [From Rocephin] Shock cetirizine [From Zyrtec] Allergy Hives Verified 09/02/17 02:02 diphenhydramine HCl Allergy Anaphylactic Verified 09/02/17 02:02 [From Benadryl] Shock erythromycin base Allergy Anaphylactic Verified 09/02/17 02:02 [Erythromycin Base] Shock hydrocodone bitartrate Allergy Anaphylactic Verified 09/02/17 02:02 [From Vicodin] Shock Penicillins Allergy Anaphylactic Verified 09/02/17 02:02 Shock prednisone Allergy Anaphylactic Verified 09/02/17 02:02 Shock Sulfa (Sulfonamide Allergy Anaphylactic Verified 09/02/17 02:02 Antibiotics) Shock Home Meds: Home Meds . 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) - Infectious Disease History Infectious Disease History: Reports: Chicken Pox - Past Surgical History HEENT Surgical History: Reports: Oral Surgery ([place] teeth extraction) Cardiovascular Surgical History: Reports: Vascular Surgery (Left leg thrombectomy) GI Surgical History: Reports: Appendectomy, Cholecystectomy Female Surgical History: Reports: Section (x 4), Tubal Ligation Musculoskeletal Surgical History: Reports: ORIF (left ankle) Dermatological Surgical History: Reports: None Social & Family History - Family History Family Medical History: Noncontributory HEENT: Reports: Glaucoma Cardiac: Reports: Hypertension, [place] Neurological: Reports: CVA Oncologic: Reports: Cervix - Tobacco Use Smoking Status *Q: Current Every Day Smoker Years of Tobacco use: 15 Packs/Tins Daily: 0.5 Packs/Tins Daily Comment: Down from 1 ppd - Caffeine Use Caffeine Use: Reports: Soda Other Caffeine Use: a lot everyday - Alcohol Use Alcohol Use History: Yes Alcohol Use Frequency: Socially - Recreational Drug Use Recreational Drug Use: Yes Drug Use in Last 12 Months: Yes Recreational Drug Type: Reports: Marijuana/Hashish (last = July 2017) - Living Situation & Occupation Living situation: Reports: Single, with Significant Other (Fiance) Occupation: Employed ([employer]) ED ROS GENERAL - Review of Systems Review Of Systems: ROS reveals no pertinent complaints other than HPI. ED EXAM, GENERAL - Physical Exam Exam: See Below Exam Limited By: No Limitations General Appearance: Alert, WD/WN, No Apparent Distress Eye Exam: Bilateral Eye: Normal Inspection Ears: Normal External Exam, Hearing Grossly Normal Nose: Normal Inspection, No Blood Throat/Mouth: Normal Inspection, Normal Lips, Normal Voice, No Airway Compromise Head: Atraumatic, Normocephalic Neck: Normal Inspection, Full Range of Motion Respiratory/Chest: No Respiratory Distress, Lungs Clear, Normal Breath Sounds, No Accessory Muscle Use Cardiovascular: Normal Peripheral Pulses, No Edema, No Gallop, No JVD, No Murmur , No Rub, Tachycardia (regular) Peripheral Pulses: 4+: Radial (L), Radial (R) GI/Abdominal: Normal Bowel Sounds, Soft, Non-Tender, No Organomegaly, No Distention, No Abnormal Bruit, No Mass, Other (Obese) (Female) Exam: Deferred Rectal (Female) Exam: Deferred Back Exam: Normal Inspection, Full Range of Motion, NT Extremities: Normal Inspection, Normal Range of Motion, Non-Tender, Normal Capillary Refill, No Pedal Edema Neurological: Alert, Oriented, Normal Cognition, No Motor/Sensory Deficits Psychiatric: Normal Affect Skin Exam: Warm, Dry, Intact, Normal Color, No Rash EKG INTERPRETATION EKG Date: 09/02/17 Time: 02:46 Rhythm: NSR Rate (Beats/Min): 88 [place]: Normal P-Wave: Present QRS: Normal ST-T: Normal QT: Normal Comparison: No Change (08/08/2016) Course - Vital Signs Last Recorded V/S: Last Vital Signs Temp 36.6 C 09/02/17 02:03 Pulse 103 H 09/02/17 02:03 Resp 19 09/02/17 02:03 BP 182/114 H 09/02/17 02:03 Pulse Ox 97 09/02/17 02:03 - Orders/Labs/Meds Orders: Active Orders 24 hr Category Date Time Status EKG Documentation Completion [RC] STAT Care 09/02/17 02:36 Active Chest 2V [CR] Stat Exams 09/02/17 02:36 Taken Labs: Laboratory Tests 09/02/17 09/02/17 09/02/17 Range/Units 02:10 02:10 02:10 WBC 12.11 H (3.98-10.04) K/mm3 RBC 4.90 (3.98-5.22) M/mm3 Hgb 14.0 (11.2-15.7) gm/L Hct 40.1 (34.1-44.9) % MCV 81.8 (79.4-94.8) fl MCH 28.6 (25.6-32.2) pg MCHC 34.9 (32.2-35.5) g/dl RDW Std Deviation 39.8 (36.4-46.3) fL Plt Count 260 (182-369) K/mm3 MPV 11.0 (9.4-12.3) fl Neutrophils % (Manual) 62 H (40-60) % Band Neutrophils % 0 (0-10) % Lymphocytes % (Manual) 34 (20-40) % Atypical Lymphs % 0 % Monocytes % (Manual) 4 (2-10) % Eosinophils % (Manual) 0 L (0.7-5.8) % Basophils % (Manual) 0 L (0.1-1.2) Platelet Estimate Adequate Plt Morphology Comment Normal RBC Morph Comment Normal PT 9.6 (8.0-13.0) SECONDS INR 0.89 APTT 26 (22-36) SECONDS D-Dimer, Quantitative 0.22 (0.19-0.59) mg/L Sodium 140 (136-145) mEq/L Potassium 3.4 L (3.5-5.1) mEq/L Chloride 106 (98-107) mEq/L Carbon Dioxide 21 (21-32) mEq/L Anion Gap 16.4 H (5-15) BUN 13 (7-18) mg/dL Creatinine 0.9 (0.55-1.02) mg/dL Est Cr Clr Drug Dosing 82.45 mL/min Estimated GFR (MDRD) > 60 (>60) mL/min BUN/Creatinine Ratio 14.4 (14-18) Glucose 164 H (74-106) mg/dL Calcium 9.3 (8.5-10.1) mg/dL Total Bilirubin 0.6 (0.2-1.0) mg/dL AST 35 (15-37) U/L ALT 76 H (14-59) U/L Alkaline Phosphatase 70 (46-116) U/L Troponin I < 0.017 (0.00-0.056) ng/mL Total Protein 7.5 (6.4-8.2) g/dl Albumin 3.8 (3.4-5.0) g/dl Globulin 3.7 gm/dL Albumin/Globulin Ratio 1.0 (1-2) Meds: Medications Discontinued Medications Generic Name Dose Route Start Last Admin Trade Name Freq PRN Reason Stop Dose Admin Famotidine 20 mg 09/02/17 03:29 Pepcid PO 09/02/17 03:30 ONETIME ONE Ondansetron HCl 4 mg 09/02/17 03:26 Zofran Odt PO 09/02/17 03:27 ONETIME ONE - Re-Assessments/Exams Free Text/Narrative Re-Assessment/Exam: 09/02/17 03:21 Two-view chest radiograph appears to be grossly normal. Cardiac silhouette is within normal limits. No pulmonary vascular congestion. No pleural effusions. No focal infiltrate. No pneumothorax. Formal read per the Radiologist pending. 09/02/17 03:26 Test results discussed with the patient. Charleen's workup is unremarkable, and does not explain the cause of her chest pain. Given that she has nausea, I suspect that she may be suffering from GERD, and I am going to recommend that she start taking an H2 ratna. The patient's blood glucose was found to be modestly elevated 164. The patient may have prediabetes or diabetes. I am going to recommend that she follow-up with her PCP for further evaluation, and, in the meantime, start eating a diabetic diet. Departure - Departure Time of Disposition: 03:25 Disposition: Home, Self-Care 01 Condition: Good Clinical Impression: Chest pain of uncertain etiology, Hyperglycemia - Discharge Information Referrals: Ynes Leong PA [Physician Water Hauler] - Forms: ED Department Discharge Additional Instructions: You were seen in the emergency room for chest pain, palpitations, nausea, and vomiting. Workup in the ER included blood work, an ECG, and a chest x-ray. Your workup was unremarkable, and does not explain the cause of your chest pain. You have not suffered a heart attack. You do not have a blood clot in your lungs. You do not have pneumonia or a collapsed lung. Because your chest pain was associated with nausea and vomiting, it is possible that your pain may be due to acid reflux, or GERD. We recommend that you start taking an H2 ratna, such as Pepcid (famotidine), Zantac (ranitidine), or Tagamet (cimetidine). These are available [id number], and generics are just as good as the brand names. Take one tablet once a day, but if your symptoms continue, you may take one tablet twice a day. Your blood sugar was found to be elevated at 164. This could be due to diabetes , or a condition called pre-diabetes. Further evaluation is needed. We recommend that you follow-up with your PCP, Ynes Leong, in this regard. In the meantime, we recommend that you start eating a "diabetic diet", also known as a low glycemic index diet. Go to the [place] [employer] website, and click on "Food & Fitness" to learn more. If any other problems, please do not hesitate to return to the ER. - My Orders Last 24 Hours: My Active Orders 09/02/17 02:36 EKG Documentation Completion [RC] STAT Chest 2V [CR] Stat - Assessment/Plan Last 24 Hours: My Active Orders 09/02/17 02:36 EKG Documentation Completion [RC] STAT Chest 2V [CR] Stat
[2017-09-02] MEDS ORDERED: Ondansetron 4 MG Tab.DIS PO ONE (03:26)
[2017-09-02] MEDS ORDERED: Famotidine 20 MG Tab PO ONE (03:29)
--- NOTE | 2017-09-02 08:50 | CR ---
Chest: Two views of the chest were obtained. Comparison: Prior chest x-ray of 04/15/17. Heart size and mediastinum are normal. Lungs are clear. Bony structures are within normal limits for the patient's age. Impression: 1. Nothing acute is identified on two-view chest x-ray. Diagnostic code #1
== END 2017-09-02 03:44 | disposition home or self-care (01) ==
LOC: JD.ED 01:55
DX: R07.89 Other chest pain (principal); E11.65 Type 2 diabetes mellitus with hyperglycemia; I10 Essential (primary) hypertension; F17.210 Nicotine dependence, cigarettes, uncomplicated; Z88.0 Allergy status to penicillin; Z88.1 Allergy status to other antibiotic agents; Z88.2 Allergy status to sulfonamides; Z88.5 Allergy status to narcotic agent; Z88.6 Allergy status to analgesic agent; Z88.8 Allergy status to other drugs, medicaments and biological substances
CPT/HCPCS: 36415; 71046; 80053; 84484; 85025; 85379; 85610; 85730; 93005; 99285; A9270; 93010; 99284-25

== ENCOUNTER 2017-11-16 00:46 | Emergency (ER) | payer MEDICAID ==
[2017-11-16] MEDS ORDERED: Morphine 4 MG/ML Syringe IM ONE (01:12)
--- NOTE | 2017-11-16 01:12 | EDM.PDOC ---
ED HPI GENERAL MEDICAL PROBLEM - General Chief Complaint: Back Pain or Injury Stated Complaint: SEVERE LOWER BACK PAIN RIGHT LEG PAIN AND NUMB Time Seen by Provider: 11/16/17 00:54 Source of Information: Reports: Patient History Limitations: Reports: No Limitations - History of Present Illness INITIAL COMMENTS - FREE TEXT/NARRATIVE: The patient says she woke up this morning with some right lower back pain that went down her right leg and then she went to work. The pain continued and tonight it was severe. She did not hurt her back in any way. She did not lift, twist or fall. She had a bad epidural years ago with some back pain but no pain recently. She denies numbness or weakness. She has no bowel or bladder problems. Onset: Gradual Duration: Day(s): ([place]) Location: Reports: Back Quality: Reports: Sharp Severity: Severe Improves with: Reports: Immobilization Worsens with: Reports: Movement Associated Symptoms: Reports: No Other Symptoms Right Leg Pain Score (Numeric/FACES): 6 - Related Data Allergies Allergy/AdvReac Type Severity Reaction Status Date / Time ceftriaxone sodium Allergy Anaphylactic Verified 09/02/17 02:02 [From Rocephin] Shock cetirizine [From Zyrtec] Allergy Hives Verified 09/02/17 02:02 diphenhydramine HCl Allergy Anaphylactic Verified 09/02/17 02:02 [From Benadryl] Shock erythromycin base Allergy Anaphylactic Verified 09/02/17 02:02 [Erythromycin Base] Shock hydrocodone bitartrate Allergy Anaphylactic Verified 09/02/17 02:02 [From Vicodin] Shock Penicillins Allergy Anaphylactic Verified 09/02/17 02:02 Shock prednisone Allergy Anaphylactic Verified 09/02/17 02:02 Shock Sulfa (Sulfonamide Allergy Anaphylactic Verified 09/02/17 02:02 Antibiotics) Shock aspirin AdvReac Vomiting Verified 09/05/17 09:47 Home Meds: Home Meds Cyclobenzaprine [Flexeril] 10 mg PO TID PRN #20 tab 11/16/17 [Rx] Losartan [Cozaar] 50 mg PO DAILY 11/16/17 [History] Metoprolol Succinate 25 mg PO DAILY 11/16/17 [History] Ranitidine [Zantac] 75 mg PO DAILY 11/16/17 [History] oxyCODONE HCl/Acetaminophen [Percocet 5-325 mg Tablet] 1 - 2 each PO Q6HR PRN # 6 tablet 11/16/17 [Rx] Past Medical History Cardiovascular History: Reports: Blood Clots/VTE/DVT, Hypertension 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 History: 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: Musculoskeletal History: Reports: Fracture Neurological History: Reports: Headaches, Chronic Endocrine/Metabolic History: Reports: Obesity/BMI 30+ Hematologic History: Reports: Anemia, Blood Transfusion(s) Oncologic (Cancer) History: Reports: Leukemia - Infectious Disease History Infectious Disease History: Reports: Chicken Pox - Past Surgical History HEENT Surgical History: Reports: Oral Surgery Cardiovascular Surgical History: Reports: Vascular Surgery GI Surgical History: Reports: Appendectomy, Cholecystectomy Female Surgical History: Reports: Section, Tubal Ligation Musculoskeletal Surgical History: Reports: ORIF Dermatological Surgical History: Reports: None Social & Family History - Family History Family Medical History: Noncontributory HEENT: Reports: Glaucoma Cardiac: Reports: Hypertension, [place] Neurological: Reports: CVA Oncologic: Reports: Cervix - Tobacco Use Smoking Status *Q: Current Every Day Smoker Years of Tobacco use: 15 Packs/Tins Daily: 0.5 - Caffeine Use Caffeine Use: Reports: Soda Other Caffeine Use: a lot everyday - Alcohol Use Days Per Week of Alcohol Use: 0 - Recreational Drug Use Recreational Drug Use: No Drug Use in Last 12 Months: Yes Recreational Drug Type: Reports: Marijuana/Hashish (last = July 2017) - Living Situation & Occupation Living situation: Reports: Single, with Significant Other (Fiance) Occupation: Employed ([employer]) ED ROS GENERAL - Review of Systems Review Of Systems: See Below Constitutional: Reports: No Symptoms HEENT: Reports: No Symptoms Respiratory: Reports: No Symptoms Cardiovascular: Reports: No Symptoms Endocrine: Reports: No Symptoms GI/Abdominal: Reports: No Symptoms : Reports: No Symptoms Musculoskeletal: Reports: Back Pain ED EXAM,LOWER BACK PAIN/INJURY - Physical Exam Exam: See Below Exam Limited By: No Limitations General Appearance: Alert, No Apparent Distress Ears: Normal External Exam Nose: Normal Inspection Head: Atraumatic, Normocephalic Neck: Normal Inspection Respiratory/Chest: No Respiratory Distress, Lungs Clear, Normal Breath Sounds Cardiovascular: Regular Rate, Rhythm, No Edema, No Murmur GI/Abdominal: Soft, Non-Tender, No Organomegaly, No Mass Back Exam: Other (Mild pain upon palpation to the right lower back) Extremities: Normal Inspection Neurological: Alert, No Motor/Sensory Deficits, Oriented x 3 Course - Vital Signs Last Recorded V/S: Last Vital Signs Temp 97.6 F 11/16/17 00:50 Pulse 117 H 11/16/17 00:50 Resp 16 11/16/17 00:50 BP Pulse Ox 100 11/16/17 00:50 - Re-Assessments/Exams Free Text/Narrative Re-Assessment/Exam: 11/16/17 01:09 I ordered a shot of toradol and dilaudid. I will get her on some flexeril and a couple percocet. Departure - Departure Time of Disposition: 01:10 Disposition: Home, Self-Care 01 Condition: Good Clinical Impression: Low back pain Qualifiers: Chronicity: acute Back pain laterality: right Sciatica presence: with sciatica Sciatica laterality: sciatica of right side Qualified Code(s): M54.41 - Lumbago with sciatica, right side - Discharge Information Prescriptions: oxyCODONE HCl/Acetaminophen [Percocet 5-325 mg Tablet] 1 - 2 each PO Q6HR PRN # 6 tablet PRN Reason: Pain Cyclobenzaprine [Flexeril] 10 mg PO TID PRN #20 tab PRN Reason: Pain Referrals: Ynes Leong PA [Primary Care Provider] - 1 Week Additional Instructions: Use some ice for 15 minutes 3 times per day for 2 days. Take the flexeril as needed for pain. You can also take motrin or aleve. If that does not help try tome percocet. Follow up with your doctor.
[2017-11-16] MEDS ORDERED: Ketorolac 60 MG/2 ML SDV IM ONE (01:13)
== END 2017-11-16 01:25 | disposition home or self-care (01) ==
LOC: JD.ED 00:46
DX: M54.41 Lumbago with sciatica, right side (principal); I10 Essential (primary) hypertension; F17.210 Nicotine dependence, cigarettes, uncomplicated; Z79.899 Other long term (current) drug therapy; Z88.0 Allergy status to penicillin; Z88.1 Allergy status to other antibiotic agents; Z88.6 Allergy status to analgesic agent; Z88.8 Allergy status to other drugs, medicaments and biological substances; Z88.5 Allergy status to narcotic agent
CPT/HCPCS: 96372; 99283; J1885; J2270

== ENCOUNTER 2017-12-14 01:51 | Emergency (ER) | payer MEDICAID ==
[2017-12-14] MEDS ORDERED: Ondansetron 4 MG Tab.DIS PO ONE (02:34)
[2017-12-14] MEDS ORDERED: Ibuprofen 600 MG Tab PO ONE (02:35)
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
[2017-12-14] MEDS ORDERED: Orphenadrine 100 MG Tab.ER PO STA (05:02)
[2017-12-14 05:22] VITALS: BP 136/95
--- NOTE | 2017-12-15 10:21 | CT ---
CT cervical spine Technique: Multiple axial sections were obtained from above C1 inferiorly to the top of T2. Reconstructed sagittal and coronal images were reviewed. Comparison: Prior CT cervical spine exam of 12/14/15. Findings: Vertebral body heights and disc spaces are maintained. Vertebral bodies and posterior arches are intact with no fracture being seen. No bony central or bony neural foraminal stenosis is seen. Mucosal thickening is seen within portion of the sphenoid sinus. No abnormal subluxation is seen on the reconstructed sagittal views. Impression: 1. Mucosal thickening within the sphenoid sinus. This is an interval change from previous exam. 2. No additional abnormality is identified on CT study of the cervical spine. Diagnostic code #2 I agree with preliminary report from [facility], finalized at 12/14/17, 4:52 AM Central Time
== END 2017-12-14 05:15 | disposition home or self-care (01) ==
LOC: JD.ED 01:51
DX: S16.1XXA Strain of muscle, fascia and tendon at neck level, initial encounter (principal); F17.210 Nicotine dependence, cigarettes, uncomplicated; I10 Essential (primary) hypertension; Z79.899 Other long term (current) drug therapy; Z88.6 Allergy status to analgesic agent; Z88.2 Allergy status to sulfonamides; Z88.0 Allergy status to penicillin; Z88.8 Allergy status to other drugs, medicaments and biological substances; Z88.1 Allergy status to other antibiotic agents; V89.2XXA Person injured in unspecified motor-vehicle accident, traffic, initial encounter
CPT/HCPCS: 72125; 99284; A9270; 99283

== ENCOUNTER 2018-01-19 23:57 | Emergency (ER) | payer MEDICAID ==
[2018-01-20 00:06] VITALS: BP 171/100
[2018-01-20] MEDS ORDERED: Ketorolac 30 MG/ML SDV IVPUSH STA (03:11)
[2018-01-20] MEDS ORDERED: Tamsulosin 0.4 MG Cap.ER PO ONE (03:11)
[2018-01-20] MEDS ORDERED: Sodium Chloride 0.9% 1,000 ML IV SCH (03:15)
[2018-01-20] MEDS ORDERED: Ondansetron 4 MG/2 ML SDV IVPUSH ONE (03:47)
[2018-01-20] MEDS ORDERED: HYDROmorphone 0.5 MG/0.5 ML SYRINGE IVPUSH STA (04:35)
--- NOTE | 2018-01-20 04:35 | EDM.PDOC ---
ED HPI GENERAL MEDICAL PROBLEM - General Chief Complaint: Abdominal Pain Stated Complaint: STOMACH PAIN AND BLOOD IN THE URINE Time Seen by Provider: 01/20/18 03:05 Source of Information: Reports: Patient History Limitations: Reports: No Limitations - History of Present Illness INITIAL COMMENTS - FREE TEXT/NARRATIVE: The patient states that she developed lower abdominal pain, nausea, and gross hematuria around 23:00 last night. The lower abdominal pain does not radiate, but is made worse with body movements. The patient has not had any emesis, recent constipation, diarrhea, or urinary symptoms. No recent flank pain. She states that she has a history of kidney stones, and that her current symptoms are different than prior kidney stones. Lower Abdomen Pain Score (Numeric/FACES): 8 - Related Data Allergies Allergy/AdvReac Type Severity Reaction Status Date / Time ceftriaxone sodium Allergy Anaphylactic Verified 01/20/18 00:06 [From Rocephin] Shock cetirizine [From Zyrtec] Allergy Hives Verified 01/20/18 00:06 diphenhydramine HCl Allergy Anaphylactic Verified 01/20/18 00:06 [From Benadryl] Shock erythromycin base Allergy Anaphylactic Verified 01/20/18 00:06 [Erythromycin Base] Shock hydrocodone bitartrate Allergy Anaphylactic Verified 01/20/18 00:06 [From Vicodin] Shock Penicillins Allergy Anaphylactic Verified 01/20/18 00:06 Shock prednisone Allergy Anaphylactic Verified 01/20/18 00:06 Shock Sulfa (Sulfonamide Allergy Anaphylactic Verified 01/20/18 00:06 Antibiotics) Shock aspirin AdvReac Vomiting Verified 01/20/18 00:06 Home Meds: Home Meds Losartan [Cozaar] 50 mg PO DAILY 11/16/17 [History] Metoprolol Succinate 25 mg PO DAILY 11/16/17 [History] Ranitidine [Zantac] 75 mg PO DAILY 11/16/17 [History] Acetaminophen/HYDROcodone [[place] 325-5 MG] 1 - 2 tab PO Q6H PRN #20 tablet 01/20 [Rx] Ondansetron [Zofran ODT] 1 tab PO Q8H PRN #10 tab.dis 01/20/18 [Rx] Tamsulosin HCl [Flomax] 1 cap PO DAILY PRN #5 cap.er.24h 01/20/18 [Rx] Past Medical History Cardiovascular History: Reports: Blood Clots/VTE/DVT, Hypertension 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 History: Reports: Renal Calculus [employer] History: Reports: Musculoskeletal History: Reports: Fracture Neurological History: Reports: Headaches, Chronic Endocrine/Metabolic History: Reports: Obesity/BMI 30+ Hematologic History: Reports: Anemia, Blood Transfusion(s) Oncologic (Cancer) History: Reports: Leukemia - Infectious Disease History Infectious Disease History: Reports: Chicken Pox - Past Surgical History HEENT Surgical History: Reports: Oral Surgery ([place] teeth extraction) GI Surgical History: Reports: Appendectomy, Cholecystectomy Female Surgical History: Reports: Section (x 4), Tubal Ligation Musculoskeletal Surgical History: Reports: ORIF (left ankle) Dermatological Surgical History: Reports: None Social & Family History - Family History Family Medical History: Noncontributory HEENT: Reports: Glaucoma Cardiac: Reports: Hypertension, [place] Neurological: Reports: CVA Oncologic: Reports: Cervix - Tobacco Use Smoking Status *Q: Current Every Day Smoker Years of Tobacco use: 15 Packs/Tins Daily: 0.5 - Caffeine Use Caffeine Use: Reports: Soda Other Caffeine Use: a lot everyday - Recreational Drug Use Recreational Drug Use: No - Living Situation & Occupation Living situation: Reports: Single, with Family (daughter + her boyfriend) Occupation: Employed ([employer]) ED ROS GENERAL - Review of Systems Review Of Systems: ROS reveals no pertinent complaints other than HPI. ED EXAM, RENAL/ - Physical Exam Exam: See Below Exam Limited By: No Limitations General Appearance: Alert, WD/WN, No Apparent Distress Eye Exam: Bilateral Eye: Normal Inspection Ears: Normal External Exam, Hearing Grossly Normal Nose: Normal Inspection, No Blood Throat/Mouth: Normal Inspection, Normal Lips, Normal Voice, No Airway Compromise Head: Atraumatic, Normocephalic Neck: Normal Inspection, Full Range of Motion Respiratory/Chest: No Respiratory Distress, Lungs Clear, Normal Breath Sounds, No Accessory Muscle Use Cardiovascular: Normal Peripheral Pulses, Regular Rate, Rhythm, No Gallop, No JVD, No Murmur, No Rub GI/Abdominal: Normal Bowel Sounds, Soft, No Organomegaly, No Distention, No Abnormal Bruit, No Mass, Tender (Suprapubic region only. Nontender elsewhere.), Other (Obese) (Female) Exam: Deferred Rectal (Female) Exam: Deferred Back Exam: Normal Inspection, Full Range of Motion. No: CVA Tenderness (L), CVA Tenderness (R) Extremities: Normal Inspection, Normal Range of Motion, No Pedal Edema, Normal Capillary Refill Neurological: Alert, Oriented, Normal Cognition, No Motor/Sensory Deficits Psychiatric: Normal Affect Skin Exam: Warm, Dry, Intact, Normal Color, No Rash Course - Vital Signs Last Recorded V/S: Last Vital Signs Temp 37.0 C 01/20/18 00:04 Pulse 90 01/20/18 00:04 Resp 18 01/20/18 00:04 BP 171/100 H 01/20/18 00:04 Pulse Ox 100 01/20/18 00:04 - Orders/Labs/Meds Orders: Active Orders 24 hr Category Date Time Status Strain Urine [RC] ASDIRECTED Care 01/20/18 04:43 Active Abdomen Pelvis wo Cont [CT] Stat Exams 01/20/18 03:11 Taken UA W/MICROSCOPIC [URIN] Stat Lab 01/20/18 00:15 Ordered Sodium Chloride 0.9% [Normal Saline] 1,000 ml Med 01/20/18 03:15 Active IV ASDIRECTED Medication Orders Sodium Chloride (Normal Saline) 1,000 mls @ 150 mls/hr IV ASDIRECTED JUSTINE Last Admin: 01/20/18 03:28 Dose: 150 mls/hr Labs: Laboratory Tests 01/20/18 Range/Units 00:15 Urine Color Red H (Yellow) Urine Appearance Cloudy H (Clear) Urine pH 6.5 (5.0-8.0) Ur Specific [place] > or = 1.030 (1.005-1.030) Urine Protein 2+ H (Negative) Urine Glucose (UA) Negative (Negative) Urine Ketones Negative (Negative) Urine Occult Blood 3+ H (Negative) Urine Nitrite Negative (Negative) Urine Bilirubin Negative (Negative) Urine Urobilinogen 1.0 (0.2-1.0) Ur Leukocyte Esterase Negative (Negative) Urine RBC >100 H (0-5) /hpf Urine WBC 0-5 (0-5) /hpf Ur Epithelial Cells 0-5 (0-5) /hpf Urine Bacteria Not seen (FEW) /hpf Urine Mucus Not seen (FEW) /hpf Meds: Medications Generic Name Dose Route Start Last Admin Trade Name Freq PRN Reason Stop Dose Admin Sodium Chloride 1,000 mls @ 150 mls/hr 01/20/18 03:15 01/20/18 03:28 Normal Saline IV 150 mls/hr ASDIRECTED JUSTINE Administration Discontinued Medications Generic Name Dose Route Start Last Admin Trade Name Soniya PRN Reason Stop Dose Admin Hydromorphone HCl 1 mg 01/20/18 04:35 01/20/18 04:40 Dilaudid IVPUSH 01/20/18 04:36 1 mg ONETIME STA Administration Ketorolac Tromethamine 30 mg 01/20/18 03:11 01/20/18 03:28 Toradol IVPUSH 01/20/18 03:12 30 mg ONETIME STA Administration Ondansetron HCl 4 mg 01/20/18 03:47 01/20/18 03:55 Zofran IVPUSH 01/20/18 03:48 4 mg ONETIME ONE Administration Tamsulosin HCl 0.4 mg 01/20/18 03:11 01/20/18 03:28 Flomax PO 01/20/18 03:12 0.4 mg ONETIME ONE Administration - Re-Assessments/Exams Free Text/Narrative Re-Assessment/Exam: 01/20/18 04:23 CT of the abdomen and pelvis without contrast is read by [facility] as: 1. 6 mm stone in the mid left ureter causing hydronephrosis of the left kidney and left ureter 2. This is a new finding since the prior study dated 06/15/2015 3. Sigmoid diverticulosis but no evidence for diverticulitis 01/20/18 04:35 Test results discussed with the patient. At 6 mm, it is unlikely that the patient will pass this stone on her own, therefore I will refer her to Dr. Resendiz. When I had earlier attempted to put in an order for IV Dilaudid, the computer reported that the patient had an anaphylactic reaction to hydrocodone, therefore I ordered Toradol, Flomax, Zofran, and IV fluid. The patient tells me , however, that she is allergic only to Vicodin, not other opioids. I have therefore ordered IV Dilaudid, and will discharge the patient home with prescriptions for [place], Zofran, and Flomax. I will also instruct her to take [id number] ibuprofen. The patient has been instructed to stay adequately hydrated, and strain all of her urine. Departure - Departure Time of Disposition: 04:37 Disposition: Home, Self-Care 01 Condition: Fair Clinical Impression: Ureterolithiasis - Discharge Information Prescriptions: Acetaminophen/HYDROcodone [[place] 325-5 MG] 1 - 2 tab PO Q6H PRN #20 tablet PRN Reason: Pain (Severe 7-10) Ondansetron [Zofran ODT] 1 tab PO Q8H PRN #10 tab.dis PRN Reason: Nausea/Vomiting Tamsulosin HCl [Flomax] 1 cap PO DAILY PRN #5 cap.er.24h PRN Reason: Pain Instructions: Kidney Stones, [id number] Referrals: Ynes Leong PA [Primary Care Provider] - Sebas Resendiz MD [Ordering Only Provider] - Forms: ED Department Discharge Additional Instructions: You were seen in the emergency room for lower abdominal pain, nausea, and bloody urine. Workup in the emergency room included a urinalysis and a CT scan of your abdomen and pelvis. Your urinalysis confirmed blood in your urine, but no suggestion of a urinary tract infection. The CT scan of your abdomen and pelvis confirmed a 6 mm stone in your mid-left ureter. At 6 mm, it is unlikely that you will pass this stone on your own. Take [id number] ibuprofen, 2-3 tablets (400-600 mg) every 8 hours, with food, as needed for pain. Take 1 to 2 tablets of the narcotic pain reliever [place] up to every 6 hours, as needed for pain not relieved by ibuprofen. If you take [place], do not drive or operate heavy machinery for 10 hours afterwards. [place] will likely cause constipation, so consider taking a stool softener. Dissolve one tablet of the anti-nausea medicine Zofran on your tongue up to every 8 hours, as needed for nausea/vomiting. Take one capsule of the anti-spasm medicine Flomax every morning, starting tomorrow morning, 07/23/2018, as needed for pain. Stay adequately hydrated. Strain all of your urine. If you capture the stone, take it to your doctor for analysis. Follow-up with the Urologist Dr. Resendiz at the next available appointment. If any other problems, please do not hesitate to return to the ER. - My Orders Last 24 Hours: My Active Orders 01/20/18 00:15 UA W/MICROSCOPIC [URIN] Stat 01/20/18 03:11 Abdomen Pelvis wo Cont [CT] Stat 01/20/18 03:15 Sodium Chloride 0.9% [Normal Saline] 1,000 ml IV ASDIRECTED 01/20/18 04:43 Strain Urine [RC] ASDIRECTED - Assessment/Plan Last 24 Hours: My Active Orders 01/20/18 00:15 UA W/MICROSCOPIC [URIN] Stat 01/20/18 03:11 Abdomen Pelvis wo Cont [CT] Stat 01/20/18 03:15 Sodium Chloride 0.9% [Normal Saline] 1,000 ml IV ASDIRECTED 01/20/18 04:43 Strain Urine [RC] ASDIRECTED
--- NOTE | 2018-01-20 07:20 | CT ---
CT abdomen and pelvis Technique: Multiple axial sections were obtained from above the dome of the diaphragm inferiorly through the pubic symphysis. Intravenous and oral contrast not utilized. Study has been performed as a ureteral stone protocol. Comparison: Prior CT abdomen and pelvis exam of 06/15/15. Findings: Left ureter is mildly dilated. This is caused by a 6 mm stone within the mid to distal left ureter. No abnormal calcifications are seen within the kidneys with no other abnormal calcifications seen within the ureters. Diffuse fatty infiltration seen within the liver. Spleen appears within normal limits. Visualized lung bases show nothing acute. Adrenal glands show no nodule. Pancreas appears within normal limits. Surgical clips are seen from prior cholecystectomy. Aorta shows no aneurysmal dilatation. No retroperitoneal adenopathy or mesenteric abnormalities are seen. No pelvic mass or adenopathy is noted. No free fluid or inflammatory change is seen. Appendix not visualized. Bone window settings were reviewed which appear within normal limits for the patient's age. Impression: 1. 6 mm obstructing stone within the mid to distal left ureter causing mild proximal hydronephrosis. 2. Fatty infiltration within the liver. Other incidental findings. Diagnostic code #3 Agree with preliminary report issued by [facility] ([facility] preliminary report dictated on 01/20/18, 5:20 AM Central Time)
== END 2018-01-20 05:20 | disposition home or self-care (01) ==
LOC: JD.ED 23:57
DX: N13.2 Hydronephrosis with renal and ureteral calculous obstruction (principal); I10 Essential (primary) hypertension; K57.30 Diverticulosis of large intestine without perforation or abscess without bleeding; F17.210 Nicotine dependence, cigarettes, uncomplicated; Z88.1 Allergy status to other antibiotic agents; Z88.0 Allergy status to penicillin; Z88.5 Allergy status to narcotic agent; Z88.2 Allergy status to sulfonamides; Z79.899 Other long term (current) drug therapy; Z87.442 Personal history of urinary calculi
CPT/HCPCS: 74176; 81001; 96361; 96374; 96375; 99284; A9270; J1170; J1885; J2405; J7040

== ENCOUNTER 2018-01-26 06:05 | Emergency (ER) | payer MEDICAID ==
[2018-01-26] MEDS ORDERED: HYDROmorphone 0.5 MG/0.5 ML SYRINGE IM ONE (06:27)
[2018-01-26] MEDS ORDERED: Promethazine 25 MG/ML SDV IM ONE (06:28)
--- NOTE | 2018-01-26 06:33 | EDM.PDOC ---
ED HPI GENERAL MEDICAL PROBLEM - General Chief Complaint: Abdominal Pain Stated Complaint: [facility] Time Seen by Provider: 01/26/18 06:10 Source of Information: Reports: Patient, EMS History Limitations: Reports: No Limitations - History of Present Illness INITIAL COMMENTS - FREE TEXT/NARRATIVE: The patient presents by [facility] for lower abdominal pain, nausea and vomiting. She was seen here 1 week ago and diagnosed with a left ureteral stone that measured 6mm. She is scheduled to see urology but not till middle of February. She stopped having pain and hematuria yesterday and she thought she may have passed it but she did not see it in her strainer. The pain came back severe today. She also has nausea and vomiting. Onset: Sudden Duration: Hour(s): Location: Reports: Abdomen Quality: Reports: Sharp Severity: Severe Improves with: Reports: None Worsens with: Reports: None Associated Symptoms: Reports: Nausea/Vomiting. Denies: Chest Pain, Cough, Fever /Chills, Headaches, Shortness of Breath Lower Abdomen Pain Score (Numeric/FACES): 8 - Related Data Allergies Allergy/AdvReac Type Severity Reaction Status Date / Time ceftriaxone sodium Allergy Anaphylactic Verified 01/26/18 06:10 [From Rocephin] Shock cetirizine [From Zyrtec] Allergy Hives Verified 01/26/18 06:10 diphenhydramine HCl Allergy Anaphylactic Verified 01/26/18 06:10 [From Benadryl] Shock erythromycin base Allergy Anaphylactic Verified 01/26/18 06:10 [Erythromycin Base] Shock hydrocodone bitartrate Allergy Anaphylactic Verified 01/26/18 06:10 [From Vicodin] Shock Penicillins Allergy Anaphylactic Verified 01/26/18 06:10 Shock prednisone Allergy Anaphylactic Verified 01/26/18 06:10 Shock Sulfa (Sulfonamide Allergy Anaphylactic Verified 01/26/18 06:10 Antibiotics) Shock aspirin AdvReac Vomiting Verified 01/26/18 06:10 Home Meds: Home Meds Losartan [Cozaar] 50 mg PO DAILY 11/16/17 [History] Metoprolol Succinate 25 mg PO DAILY 11/16/17 [History] Ranitidine [Zantac] 75 mg PO DAILY 11/16/17 [History] Acetaminophen/HYDROcodone [[place] 325-5 MG] 1 - 2 tab PO Q6H PRN #20 tablet 01/20 [Rx] Ondansetron [Zofran ODT] 1 tab PO Q8H PRN #10 tab.dis 01/20/18 [Rx] Tamsulosin HCl [Flomax] 1 cap PO DAILY PRN #5 cap.er.24h 01/20/18 [Rx] Metoclopramide HCl [Reglan] 10 mg PO Q6HR PRN #20 tablet 01/26/18 [Rx] oxyCODONE HCl/Acetaminophen [Percocet 5-325 mg Tablet] 1 - 2 each PO Q6HR PRN # 20 tablet 01/26/18 [Rx] Past Medical History - Past Health History Medical/Surgical History: Denies Medical/Surgical History Cardiovascular History: Reports: Blood Clots/VTE/DVT, Hypertension 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 History: Reports: Renal Calculus 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: Musculoskeletal History: Reports: Fracture Neurological History: Reports: Headaches, Chronic Endocrine/Metabolic History: Reports: Obesity/BMI 30+ Hematologic History: Reports: Anemia, Blood Transfusion(s) Oncologic (Cancer) History: Reports: Leukemia - Infectious Disease History Infectious Disease History: Reports: Chicken Pox - Past Surgical History HEENT Surgical History: Reports: Oral Surgery GI Surgical History: Reports: Appendectomy, Cholecystectomy Female Surgical History: Reports: Section, Tubal Ligation Musculoskeletal Surgical History: Reports: ORIF Dermatological Surgical History: Reports: None Social & Family History - Family History Family Medical History: Noncontributory HEENT: Reports: Glaucoma Cardiac: Reports: Hypertension, [place] Neurological: Reports: CVA Oncologic: Reports: Cervix - Tobacco Use Smoking Status *Q: Current Every Day Smoker Years of Tobacco use: 15 Packs/Tins Daily: 0.4 - Caffeine Use Caffeine Use: Reports: Soda Other Caffeine Use: a lot everyday - Recreational Drug Use Recreational Drug Use: No - Living Situation & Occupation Living situation: Reports: Single, with Family (daughter + her boyfriend) Occupation: Employed ([employer]) ED ROS GENERAL - Review of Systems Review Of Systems: See Below Constitutional: Reports: No Symptoms HEENT: Reports: No Symptoms Respiratory: Reports: No Symptoms Cardiovascular: Reports: No Symptoms Endocrine: Reports: No Symptoms GI/Abdominal: Reports: Abdominal Pain, Nausea, Vomiting. Denies: Diarrhea : Reports: No Symptoms Musculoskeletal: Reports: No Symptoms ED EXAM, GI/ABD - Physical Exam Exam: See Below Exam Limited By: No Limitations General Appearance: Alert, No Apparent Distress Ears: Normal External Exam Nose: Normal Inspection Head: Atraumatic, Normocephalic Neck: Normal Inspection Respiratory/Chest: No Respiratory Distress, Lungs Clear, Normal Breath Sounds Cardiovascular: Regular Rate, Rhythm, No Edema, No Murmur GI/Abdominal Exam: Soft, No Organomegaly, No Mass, Tender (Moderate tenderness to the left lower abdomen) Back Exam: CVA Tenderness (L) Extremities: Normal Inspection Neurological: Alert, Oriented, No Motor/Sensory Deficits Course - Vital Signs Last Recorded V/S: Last Vital Signs Temp 98.8 F 01/26/18 06:10 Pulse 68 01/26/18 07:27 Resp 18 01/26/18 07:27 BP 119/58 L 01/26/18 07:27 Pulse Ox 97 01/26/18 07:27 - Orders/Labs/Meds Orders: Active Orders 24 hr Category Date Time Status KUB [Abdomen 1V Flat] [CR] Stat Exams 01/26/18 06:27 Taken UA W/MICROSCOPIC [URIN] Stat Lab 01/26/18 06:32 Ordered Labs: Laboratory Tests 01/26/18 01/26/18 01/26/18 Range/Units 06:32 07:02 07:02 WBC 10.30 H (3.98-10.04) K/mm3 RBC 4.64 (3.98-5.22) M/mm3 Hgb 13.2 (11.2-15.7) gm/L Hct 38.9 (34.1-44.9) % MCV 83.8 (79.4-94.8) fl MCH 28.4 (25.6-32.2) pg MCHC 33.9 (32.2-35.5) g/dl RDW Std Deviation 42.0 (36.4-46.3) fL Plt Count 277 (182-369) K/mm3 MPV 10.2 (9.4-12.3) fl Neut % (Auto) 68.0 (34.0-71.1) % Lymph % (Auto) 20.8 (19.3-51.7) % Haakon % (Auto) 7.9 (4.7-12.5) % Eos % (Auto) 2.2 (0.7-5.8) Baso % (Auto) 0.5 (0.1-1.2) % Neut # (Auto) 7.01 H (1.56-6.13) K/mm3 Lymph # (Auto) 2.14 (1.18-3.74) K/mm3 Haakon # (Auto) 0.81 H (0.24-0.36) K/mm3 Eos # (Auto) 0.23 (0.04-0.36) K/mm3 Baso # (Auto) 0.05 (0.01-0.08) K/mm3 Sodium 139 (136-145) mEq/L Potassium 3.7 (3.5-5.1) mEq/L Chloride 104 (98-107) mEq/L Carbon Dioxide 23 (21-32) mEq/L Anion Gap 15.7 H (5-15) BUN 14 (7-18) mg/dL Creatinine 1.0 (0.55-1.02) mg/dL Est Cr Clr Drug Dosing 74.21 mL/min Estimated GFR (MDRD) > 60 (>60) mL/min BUN/Creatinine Ratio 14.0 (14-18) Glucose 122 H (74-106) mg/dL Calcium 9.6 (8.5-10.1) mg/dL Total Bilirubin 1.0 (0.2-1.0) mg/dL AST 47 H (15-37) U/L ALT 87 H (14-59) U/L Alkaline Phosphatase 63 (46-116) U/L Total Protein 7.1 (6.4-8.2) g/dl Albumin 3.5 (3.4-5.0) g/dl Globulin 3.6 gm/dL Albumin/Globulin Ratio 1.0 (1-2) Urine Color Light yellow (Yellow) Urine Appearance Slt cloudy H (Clear) Urine pH 6.0 (5.0-8.0) Ur Specific [place] 1.020 (1.005-1.030) Urine Protein 1+ H (Negative) Urine Glucose (UA) Negative (Negative) Urine Ketones Negative (Negative) Urine Occult Blood 1+ H (Negative) Urine Nitrite Negative (Negative) Urine Bilirubin Negative (Negative) Urine Urobilinogen 0.2 (0.2-1.0) Ur Leukocyte Esterase Negative (Negative) Urine RBC 0-5 (0-5) /hpf Urine WBC 0-5 (0-5) /hpf Ur Epithelial Cells 0-5 (0-5) /hpf Urine Bacteria Many H (FEW) /hpf Urine Mucus Few (FEW) /hpf Meds: Medications Discontinued Medications Generic Name Dose Route Start Last Admin Trade Name Freq PRN Reason Stop Dose Admin Hydromorphone HCl 1 mg 01/26/18 06:27 01/26/18 07:00 Dilaudid IM 01/26/18 06:28 1 mg ONETIME ONE Administration Promethazine HCl 25 mg 01/26/18 06:28 01/26/18 07:00 Phenergan IM 01/26/18 06:29 25 mg ONETIME ONE Administration - Re-Assessments/Exams Free Text/Narrative Re-Assessment/Exam: 01/26/18 06:33 I ordered a KUB, labs, UA, dilaudid 1mg IM and phenergan 25mg IM. 01/26/18 07:26 Her CBC looks good. Her urine has some blood. Her CMP looks good. I cannot see the stone in the KUB. I will give her another dose of dilaudid and discharge her home. Departure - Departure Time of Disposition: 07:35 Disposition: Home, Self-Care 01 Condition: Good Clinical Impression: Kidney stones, Renal colic - Discharge Information Prescriptions: Metoclopramide HCl [Reglan] 10 mg PO Q6HR PRN #20 tablet PRN Reason: Nausea/Vomiting oxyCODONE HCl/Acetaminophen [Percocet 5-325 mg Tablet] 1 - 2 each PO Q6HR PRN # 20 tablet PRN Reason: Pain Referrals: Ynes Leong PA [Primary Care Provider] - 1 Week Forms: ED Department Discharge Additional Instructions: Take your medication as prescribed. Take the percocet instead of the norco. Follow up withe urology. - My Orders Last 24 Hours: My Active Orders 01/26/18 06:27 KUB [Abdomen 1V Flat] [CR] Stat 01/26/18 06:32 UA W/MICROSCOPIC [URIN] Stat - Assessment/Plan Last 24 Hours: My Active Orders 01/26/18 06:27 KUB [Abdomen 1V Flat] [CR] Stat 01/26/18 06:32 UA W/MICROSCOPIC [URIN] Stat
[2018-01-26 07:53] VITALS: BP 120/66
--- NOTE | 2018-01-26 09:18 | CR ---
Abdomen: Supine view of the abdomen was obtained. Comparison: Prior CT abdomen and pelvis exam of 01/20/18. Surgical clips are seen on the right side with anastomotic sutures. Bowel gas pattern is normal. No abnormal calcifications are seen. Previous ureteral stone not definitely appreciated on this plain film study. Prominent acetabulum are seen off of both superior hips which are prominent enough to cause impingement symptoms. Impression: 1. Previous ureteral stone not definitely identified on plain film exam. 2. Other incidental findings as noted above. Diagnostic code #2
== END 2018-01-26 07:50 | disposition home or self-care (01) ==
LOC: JD.ED 06:05
DX: N20.0 Calculus of kidney (principal); F17.210 Nicotine dependence, cigarettes, uncomplicated; Z79.899 Other long term (current) drug therapy; Z88.2 Allergy status to sulfonamides; Z88.6 Allergy status to analgesic agent; Z88.1 Allergy status to other antibiotic agents; Z88.8 Allergy status to other drugs, medicaments and biological substances
CPT/HCPCS: 36415; 74018; 80053; 81001; 85025; 96372; 99285; J1170; J2550; 99283

== ENCOUNTER 2018-01-31 14:06 | Emergency (ER) | payer MEDICAID ==
[2018-01-31 14:24] VITALS: BP 183/118
[2018-01-31] MEDS ORDERED: Sodium Chloride 0.9% 1,000 ML IV ONE (14:55)
[2018-01-31] MEDS ORDERED: Ondansetron 4 MG/2 ML SDV IVPUSH ONE (14:55)
[2018-01-31] MEDS ORDERED: Sodium Chloride 0.9% 10 ML Syringe FLUSH PRN (14:56)
[2018-01-31] MEDS ORDERED: HYDROmorphone 0.5 MG/0.5 ML SYRINGE IVPUSH ONE ×2 (14:58→16:53)
--- NOTE | 2018-01-31 15:33 | EDM.PDOC ---
ED HPI GENERAL MEDICAL PROBLEM - General Chief Complaint: Flank Pain Stated Complaint: POSS. KIDNEY STONE Time Seen by Provider: 01/31/18 14:58 Source of Information: Reports: Patient, Old Records (recent ER visits) History Limitations: Reports: No Limitations - History of Present Illness INITIAL COMMENTS - FREE TEXT/NARRATIVE: 32-year-old female presents for pain management for a kidney stone. Patient was initially seen in the ER on January 19. She was diagnosed with a 6 mm obstructing stone in her mid to distal left ureter. Patient scheduled a follow-up with urology in January but unfortunately she was unable to make it. She presented again to the ER on January 26 for pain management. She was given a prescription of [place] but due to some miscommunication she did not receive this. She states that she only has 2 or 3 [place] left at this time. She did take 1 last round 10 AM this morning. She is primarily complaining of plane in the left lower quadrant and the left side of her lower back. She reports associated symptoms of nausea and hematuria. No fevers, chills, vomiting or any dysuria. She reports today the pain has been worsening. At this point she has a follow-up with urology on February 06. Believes she is seeing Dr. Bullard in [place]. 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: norco Left Lower Abdomen Pain Score (Numeric/FACES): 10 - Related Data Allergies Allergy/AdvReac Type Severity Reaction Status Date / Time ceftriaxone sodium Allergy Anaphylactic Verified 01/26/18 06:10 [From Rocephin] Shock cetirizine [From Zyrtec] Allergy Hives Verified 01/26/18 06:10 diphenhydramine HCl Allergy Anaphylactic Verified 01/26/18 06:10 [From Benadryl] Shock erythromycin base Allergy Anaphylactic Verified 01/26/18 06:10 [Erythromycin Base] Shock hydrocodone bitartrate Allergy Anaphylactic Verified 01/26/18 06:10 [From Vicodin] Shock Penicillins Allergy Anaphylactic Verified 01/26/18 06:10 Shock prednisone Allergy Anaphylactic Verified 01/26/18 06:10 Shock Sulfa (Sulfonamide Allergy Anaphylactic Verified 01/26/18 06:10 Antibiotics) Shock aspirin AdvReac Vomiting Verified 01/26/18 06:10 Home Meds: Home Meds Losartan [Cozaar] 50 mg PO DAILY 11/16/17 [History] Metoprolol Succinate 25 mg PO DAILY 11/16/17 [History] Ranitidine [Zantac] 75 mg PO DAILY 11/16/17 [History] Acetaminophen/HYDROcodone [[place] 325-5 MG] 1 - 2 tab PO Q6H PRN #20 tablet 01/20 [Rx] Ondansetron [Zofran ODT] 1 tab PO Q8H PRN #10 tab.dis 01/20/18 [Rx] Tamsulosin HCl [Flomax] 1 cap PO DAILY PRN #5 cap.er.24h 01/20/18 [Rx] Metoclopramide HCl [Reglan] 10 mg PO Q6HR PRN #20 tablet 01/26/18 [Rx] oxyCODONE HCl/Acetaminophen [Percocet 5-325 mg Tablet] 1 - 2 each PO Q6HR PRN # 20 tablet 01/26/18 [Rx] Acetaminophen/HYDROcodone [[place] 325-5 MG] 1 tab PO Q4H PRN #20 tablet 01/31/18 [Rx] Tamsulosin HCl [Flomax] 0.4 mg PO DAILY #7 cap.er.24h 01/31/18 [Rx] Past Medical History - Past Health History Medical/Surgical History: Denies Medical/Surgical History Cardiovascular History: Reports: Blood Clots/VTE/DVT, Hypertension 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 History: Reports: Renal Calculus 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: Musculoskeletal History: Reports: Fracture Neurological History: Reports: Headaches, Chronic Endocrine/Metabolic History: Reports: Obesity/BMI 30+ Hematologic History: Reports: Anemia, Blood Transfusion(s) Oncologic (Cancer) History: Reports: Leukemia - Infectious Disease History Infectious Disease History: Reports: Chicken Pox - Past Surgical History HEENT Surgical History: Reports: Oral Surgery GI Surgical History: Reports: Appendectomy, Cholecystectomy Female Surgical History: Reports: Section, Tubal Ligation Musculoskeletal Surgical History: Reports: ORIF Dermatological Surgical History: Reports: None Social & Family History - Family History Family Medical History: Noncontributory HEENT: Reports: Glaucoma Cardiac: Reports: Hypertension, [place] Neurological: Reports: CVA Oncologic: Reports: Cervix - Caffeine Use Caffeine Use: Reports: Soda Other Caffeine Use: a lot everyday - Living Situation & Occupation Living situation: Reports: Single, with Family (daughter + her boyfriend) Occupation: Employed ([employer], [employer]) ED ROS GENERAL - Review of Systems Review Of Systems: See Below Constitutional: Denies: Fever, Chills GI/Abdominal: Reports: Abdominal Pain (LLQ), Nausea. Denies: Vomiting : Denies: Dysuria, Flank Pain Musculoskeletal: Reports: Back Pain (left lower back) ED EXAM, RENAL/ - Physical Exam Exam: See Below Exam Limited By: No Limitations General Appearance: Alert, WD/WN, No Apparent Distress, Obese Respiratory/Chest: No Respiratory Distress, Lungs Clear, Normal Breath Sounds Cardiovascular: Normal Peripheral Pulses, Regular Rate, Rhythm, No Murmur GI/Abdominal: Normal Bowel Sounds, Soft, Non-Tender Back Exam: Normal Inspection. No: CVA Tenderness (L), CVA Tenderness (R) Neurological: Alert, Oriented, Normal Cognition Psychiatric: Normal Affect, Normal Mood Skin Exam: Warm, Dry, Normal Color Course - Vital Signs Last Recorded V/S: Last Vital Signs Temp 98.3 F 01/31/18 14:22 Pulse 81 01/31/18 14:22 Resp 20 01/31/18 14:22 BP 183/118 H 01/31/18 14:22 Pulse Ox 100 01/31/18 14:22 - Orders/Labs/Meds Orders: Active Orders 24 hr Category Date Time Status Peripheral IV Care [RC] . DIRECTED Care 01/31/18 14:56 Active UA W/MICROSCOPIC [URIN] Stat Lab 01/31/18 14:27 Ordered Peripheral IV Insertion Adult [OM.PC] Routine Oth 01/31/18 14:56 Ordered Labs: Laboratory Tests 01/31/18 01/31/18 01/31/18 Range/Units 14:27 14:40 14:40 WBC 9.97 (3.98-10.04) K/mm3 RBC 4.95 (3.98-5.22) M/mm3 Hgb 14.3 (11.2-15.7) gm/L Hct 41.3 (34.1-44.9) % MCV 83.4 (79.4-94.8) fl MCH 28.9 (25.6-32.2) pg MCHC 34.6 (32.2-35.5) g/dl RDW Std Deviation 41.7 (36.4-46.3) fL Plt Count 284 (182-369) K/mm3 MPV 10.2 (9.4-12.3) fl Neut % (Auto) 68.6 (34.0-71.1) % Lymph % (Auto) 23.0 (19.3-51.7) % Wise % (Auto) 5.9 (4.7-12.5) % Eos % (Auto) 1.7 (0.7-5.8) Baso % (Auto) 0.4 (0.1-1.2) % Neut # (Auto) 6.84 H (1.56-6.13) K/mm3 Lymph # (Auto) 2.29 (1.18-3.74) K/mm3 Wise # (Auto) 0.59 H (0.24-0.36) K/mm3 Eos # (Auto) 0.17 (0.04-0.36) K/mm3 Baso # (Auto) 0.04 (0.01-0.08) K/mm3 Sodium 138 (136-145) mEq/L Potassium 4.1 (3.5-5.1) mEq/L Chloride 105 (98-107) mEq/L Carbon Dioxide 23 (21-32) mEq/L Anion Gap 14.1 (5-15) BUN 12 (7-18) mg/dL Creatinine 0.9 (0.55-1.02) mg/dL Est Cr Clr Drug Dosing 82.45 mL/min Estimated GFR (MDRD) > 60 (>60) mL/min BUN/Creatinine Ratio 13.3 L (14-18) Glucose 115 H (74-106) mg/dL Calcium 9.0 (8.5-10.1) mg/dL Total Bilirubin 0.8 (0.2-1.0) mg/dL AST 38 H (15-37) U/L ALT 78 H (14-59) U/L Alkaline Phosphatase 69 (46-116) U/L Total Protein 7.6 (6.4-8.2) g/dl Albumin 3.8 (3.4-5.0) g/dl Globulin 3.8 gm/dL Albumin/Globulin Ratio 1.0 (1-2) Urine Color Yellow (Yellow) Urine Appearance Turbid H (Clear) Urine pH 6.0 (5.0-8.0) Ur Specific [place] > or = 1.030 (1.005-1.030) Urine Protein 3+ H (Negative) Urine Glucose (UA) Negative (Negative) Urine Ketones Negative (Negative) Urine Occult Blood 3+ H (Negative) Urine Nitrite Negative (Negative) Urine Bilirubin 1+ H (Negative) Urine Urobilinogen 1.0 (0.2-1.0) Ur Leukocyte Esterase Negative (Negative) Urine RBC 75-100 H (0-5) /hpf Urine WBC 0-5 (0-5) /hpf Ur Epithelial Cells 0-5 (0-5) /hpf Urine Bacteria Rare (FEW) /hpf Urine Mucus Not seen (FEW) /hpf Meds: Medications Discontinued Medications Generic Name Dose Route Start Last Admin Trade Name Freq PRN Reason Stop Dose Admin Hydromorphone HCl 1 mg 01/31/18 14:58 01/31/18 15:08 Dilaudid IVPUSH 01/31/18 14:59 1 mg ONETIME ONE Administration Hydromorphone HCl 0.5 mg 01/31/18 16:53 01/31/18 17:11 Dilaudid IVPUSH 01/31/18 16:54 0.5 mg ONETIME ONE Administration Sodium Chloride 1,000 mls @ 999 mls/hr 01/31/18 14:55 01/31/18 15:07 Normal Saline IV 01/31/18 15:55 999 mls/hr ONETIME ONE Administration Metoclopramide HCl 5 mg 01/31/18 16:11 01/31/18 16:35 Reglan IVPUSH 01/31/18 16:12 5 mg ONETIME ONE Administration Ondansetron HCl 4 mg 01/31/18 14:55 01/31/18 15:07 Zofran IVPUSH 01/31/18 14:56 4 mg ONETIME ONE Administration Sodium Chloride 10 ml 01/31/18 14:56 01/31/18 15:07 Saline Flush FLUSH 10 ml ASDIRECTED PRN Administration Keep Vein Open - Re-Assessments/Exams Free Text/Narrative Re-Assessment/Exam: 01/31/18 16:50 I reviewed the labs with the patient. She reports that her pain has improved, current 5 out of 10. We will give her an additional 0.5 mg IV Dilaudid. I will discharge her home with a prescription for [place] and restart her on the Flomax. She is to follow up with urology as planned. Discharge instructions as documented. Departure - Departure Time of Disposition: 16:58 Disposition: Home, Self-Care 01 Condition: Fair Clinical Impression: Nephrolithiasis - Discharge Information Prescriptions: Acetaminophen/HYDROcodone [[place] 325-5 MG] 1 tab PO Q4H PRN #20 tablet PRN Reason: Pain Tamsulosin HCl [Flomax] 0.4 mg PO DAILY #7 cap.er.24h Instructions: Kidney Stones, [id number] Referrals: Ynes Leong PA [Primary Care Provider] - Edwardo Bullard MD [Ordering Only Provider] - Forms: ED Department Discharge Additional Instructions: you were given medication in the ER that can affect your ability to drive and operate machinery. Do not drive or operate machinery within 12 hours of taking prescription narcotic pain medication. Urology appointment on Tuesday as planned. make sure you are drinking plenty of fluids. Take the Flomax 1 cap Daily until the stone passes or until you see urology in her instructed otherwise. Zeeland one to 2 tabs every 4-6 hours as needed for severe pain. Do not drive or operate machinery within 12 hours of taking prescription narcotic pain medication. Zeeland is habit-forming, take as few these as needed to control your pain. Do not take more than 3200 mg of ibuprofen from all sources in 1 day. Do not take more than 4 g of Tylenol from all sources in 1 day. Please return to the ER if your symptoms change or worsen. - My Orders Last 24 Hours: My Active Orders 01/31/18 14:27 UA W/MICROSCOPIC [URIN] Stat 01/31/18 14:56 Peripheral IV Care [RC] . DIRECTED Peripheral IV Insertion Adult [OM.PC] Routine - Assessment/Plan Last 24 Hours: My Active Orders 01/31/18 14:27 UA W/MICROSCOPIC [URIN] Stat 01/31/18 14:56 Peripheral IV Care [RC] . DIRECTED Peripheral IV Insertion Adult [OM.PC] Routine
[2018-01-31] MEDS ORDERED: Metoclopramide 10 MG/2 ML SDV IVPUSH ONE (16:11)
== END 2018-01-31 17:21 | disposition home or self-care (01) ==
LOC: JD.ED 14:06
DX: N20.0 Calculus of kidney (principal); Z88.1 Allergy status to other antibiotic agents; I10 Essential (primary) hypertension; Z88.8 Allergy status to other drugs, medicaments and biological substances; Z88.0 Allergy status to penicillin; Z88.2 Allergy status to sulfonamides; Z79.899 Other long term (current) drug therapy
CPT/HCPCS: 36415; 80053; 81001; 85025; 96361; 96374; 96375; 96376; 99284; J1170; J2405; J2765; J7040; J7050

== ENCOUNTER 2018-02-07 04:07 | Emergency (ER) | payer MEDICAID ==
[2018-02-07 04:15] VITALS: BP 167/111
[2018-02-07] MEDS ORDERED: Ondansetron 4 MG Tab.DIS PO ONE (04:35)
--- NOTE | 2018-02-07 04:40 | EDM.PDOC ---
ED HPI GENERAL MEDICAL PROBLEM - General Chief Complaint: 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 Problem Stated Complaint: poss kidney stone Time Seen by Provider: 02/07/18 04:16 Source of Information: Reports: Patient History Limitations: Reports: No Limitations - History of Present Illness INITIAL COMMENTS - FREE TEXT/NARRATIVE: The patient was seen by me in this ED on 01/19/2018 with a complaint of lower left abdominal pain, nausea, and gross hematuria. A CT scan of her abdomen and pelvis found a 6 mm stone in the mid left ureter. She was discharged home with prescriptions for [place], Flomax, and Zofran. She was referred to Dr. Resendiz. Medical records indicate that the patient returned to this ED on 01/26/2018. She told Dr. Amaya at the time that she was not scheduled to see a Urologist until the middle of February. A urinalysis was free of blood, and a KUB did not identify a stone. She was discharged home with a prescription for Percocet and Reglan, however, the Percocet was never filled. The patient then returned again to this ED on 01/31/2018, telling Rochelle Dennison that she had missed her Urology appointment in January, but that she had an appointment on February 06. A urinalysis showed considerable blood. She was discharged home with a prescription for [place] and Flomax. The patient now returns to the ED stating that she saw Dr. Mcallister yesterday, . She states that he scheduled her for laser surgery and a ureteral stent on 02/16/2018. She states that he did not prescribe any medications for her. She states that she forgot to take a pain medication before she went to bed tonight, then woke up vomiting. She was unable to hold down Reglan. When asked if she had any Zofran, she replied yes, but that it is the pill form, not the oral dissolvable tablet. Of note, the Zofran that I prescribed for her on was for Zofran ODT. I do not see that she has been prescribed any Zofran since. The patient states that she has continuous left lower quadrant and left flank pain. The patient's PCP is Ynes Leong. Left Flank Pain Score (Numeric/FACES): 8 - Related Data Allergies Allergy/AdvReac Type Severity Reaction Status Date / Time ceftriaxone sodium Allergy Anaphylactic Verified 01/26/18 06:10 [From Rocephin] Shock cetirizine [From Zyrtec] Allergy Hives Verified 01/26/18 06:10 diphenhydramine HCl Allergy Anaphylactic Verified 01/26/18 06:10 [From Benadryl] Shock erythromycin base Allergy Anaphylactic Verified 01/26/18 06:10 [Erythromycin Base] Shock hydrocodone bitartrate Allergy Anaphylactic Verified 01/26/18 06:10 [From Vicodin] Shock Penicillins Allergy Anaphylactic Verified 01/26/18 06:10 Shock prednisone Allergy Anaphylactic Verified 01/26/18 06:10 Shock Sulfa (Sulfonamide Allergy Anaphylactic Verified 01/26/18 06:10 Antibiotics) Shock aspirin AdvReac Vomiting Verified 01/26/18 06:10 Home Meds: Home Meds Losartan [Cozaar] 50 mg PO DAILY 11/16/17 [History] Metoprolol Succinate 25 mg PO DAILY 11/16/17 [History] Ranitidine [Zantac] 75 mg PO DAILY 11/16/17 [History] Acetaminophen/HYDROcodone [[place] 325-5 MG] 1 - 2 tab PO Q6H PRN #20 tablet 01/20 [Rx] Ondansetron [Zofran ODT] 1 tab PO Q8H PRN #10 tab.dis 01/20/18 [Rx] Tamsulosin HCl [Flomax] 1 cap PO DAILY PRN #5 cap.er.24h 01/20/18 [Rx] Metoclopramide HCl [Reglan] 10 mg PO Q6HR PRN #20 tablet 01/26/18 [Rx] oxyCODONE HCl/Acetaminophen [Percocet 5-325 mg Tablet] 1 - 2 each PO Q6HR PRN # 20 tablet 01/26/18 [Rx] Acetaminophen/HYDROcodone [[place] 325-5 MG] 1 tab PO Q4H PRN #20 tablet 01/31/18 [Rx] Tamsulosin HCl [Flomax] 0.4 mg PO DAILY #7 cap.er.24h 01/31/18 [Rx] Ondansetron [Zofran ODT] 1 tab PO Q8H PRN #10 tab.dis 02/07/18 [Rx] Past Medical History Cardiovascular History: Reports: Blood Clots/VTE/DVT, Hypertension 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 History: Reports: Renal Calculus 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: Musculoskeletal History: Reports: Fracture (left ankle) Neurological History: Reports: Headaches, Chronic Endocrine/Metabolic History: Reports: Obesity/BMI 30+ Hematologic History: Reports: Anemia, Blood Transfusion(s) Oncologic (Cancer) History: Reports: Leukemia - Infectious Disease History Infectious Disease History: Reports: Chicken Pox - Past Surgical History HEENT Surgical History: Reports: Oral Surgery ([place] teeth extraction) GI Surgical History: Reports: Appendectomy, Cholecystectomy Female Surgical History: Reports: Section (x 4), Tubal Ligation Musculoskeletal Surgical History: Reports: ORIF (left ankle) Social & Family History - Family History Family Medical History: Noncontributory HEENT: Reports: Glaucoma Cardiac: Reports: Hypertension, [place] Neurological: Reports: CVA Oncologic: Reports: Cervix - Tobacco Use Smoking Status *Q: Current Every Day Smoker Years of Tobacco use: 15 Packs/Tins Daily: 0.5 - Caffeine Use Caffeine Use: Reports: Soda Other Caffeine Use: a lot everyday - Recreational Drug Use Recreational Drug Use: No - Living Situation & Occupation Living situation: Reports: Single, with Family (daughter + her boyfriend) Occupation: Employed ([employer]) ED ROS GENERAL - Review of Systems Review Of Systems: ROS reveals no pertinent complaints other than HPI. ED EXAM, RENAL/ - Physical Exam Exam: See Below Exam Limited By: No Limitations General Appearance: Alert, WD/WN, No Apparent Distress Eye Exam: Bilateral Eye: Normal Inspection Ears: Normal External Exam, Hearing Grossly Normal Nose: Normal Inspection Throat/Mouth: Normal Inspection, Normal Lips, Normal Voice, No Airway Compromise Head: Atraumatic, Normocephalic Neck: Normal Inspection, Full Range of Motion Respiratory/Chest: No Respiratory Distress, Lungs Clear, Normal Breath Sounds, No Accessory Muscle Use Cardiovascular: Normal Peripheral Pulses, Regular Rate, Rhythm, No Edema, No Gallop, No JVD, No Murmur, No Rub GI/Abdominal: Normal Bowel Sounds, Soft, No Organomegaly, No Distention, No Abnormal Bruit, No Mass, Tender (mild, left lower quadrant only. Nontender elsewhere.), Other (Obese) (Female) Exam: Deferred Rectal (Female) Exam: Deferred Back Exam: Normal Inspection, Full Range of Motion, CVA Tenderness (L). No: CVA Tenderness (R) Extremities: Normal Inspection, Normal Range of Motion, Normal Capillary Refill Neurological: Alert, Normal Cognition, No Motor/Sensory Deficits Psychiatric: Normal Affect Skin Exam: Warm, Dry, Intact, Normal Color, No Rash Course - Vital Signs Last Recorded V/S: Last Vital Signs Temp 37.1 C 02/07/18 04:13 Pulse 101 H 02/07/18 04:13 Resp 16 02/07/18 04:13 BP 167/111 H 02/07/18 04:13 Pulse Ox 98 02/07/18 04:13 - Orders/Labs/Meds Meds: Medications Discontinued Medications Generic Name Dose Route Start Last Admin Trade Name Freq PRN Reason Stop Dose Admin Ondansetron HCl 4 mg 02/07/18 04:35 02/07/18 04:43 Zofran Odt PO 02/07/18 04:36 4 mg ONETIME ONE Administration - Re-Assessments/Exams Free Text/Narrative Re-Assessment/Exam: 02/07/18 04:36 The patient will receive a single dose of Zofran ODT here in the ED, and I will send a prescription for additional. Patient is now under the care of Dr. Mcallister, and any pain medication that is required should be prescribed by him. Departure - Departure Time of Disposition: 04:37 Disposition: Home, Self-Care 01 Condition: Good Clinical Impression: Nausea and vomiting - Discharge Information Prescriptions: Ondansetron [Zofran ODT] 1 tab PO Q8H PRN #10 tab.dis PRN Reason: Nausea/Vomiting Instructions: Nausea and Vomiting, Adult Referrals: Ynes Leong PA [Primary Care Provider] - Miguel Mcallister MD [Physician] - Forms: ED Department Discharge Additional Instructions: You were seen in the emergency room for nausea and vomiting, associated with a left-sided kidney stone. You were given a single dose of oral dissolvable Zofran in the ER, and an additional prescription has been sent to the [facility] on [facility] dissolve 1 tablet on your tongue up to every 8 hours, as needed for nausea/ vomiting. Follow-up with Dr. Mcallister as needed for pain control for your kidney stone. If any other problems, please do not hesitate to return to the ER.
== END 2018-02-07 04:50 | disposition home or self-care (01) ==
LOC: JD.ED 04:07
DX: R10.32 Left lower quadrant pain (principal); R11.2 Nausea with vomiting, unspecified; F17.210 Nicotine dependence, cigarettes, uncomplicated; I10 Essential (primary) hypertension; Z88.8 Allergy status to other drugs, medicaments and biological substances; Z88.0 Allergy status to penicillin; Z88.1 Allergy status to other antibiotic agents; Z88.2 Allergy status to sulfonamides; Z79.899 Other long term (current) drug therapy; Z87.442 Personal history of urinary calculi
CPT/HCPCS: 99283; A9270

== ENCOUNTER 2018-08-14 03:34 | Emergency (ER) | payer MEDICAID ==
--- NOTE | 2018-08-14 03:51 | EDM.PDOC ---
ED HPI GENERAL MEDICAL PROBLEM - General Chief Complaint: Chest Pain Stated Complaint: CHEST PAIN HURTS WHEN BREATHING IN Time Seen by Provider: 08/14/18 03:40 - History of Present Illness INITIAL COMMENTS - FREE TEXT/NARRATIVE: 33-year-old female presents emergency room with chest pain. This started about an hour before arrival however she had some nausea started 8- 10 hours ago she has not had any vomiting. The patient's been coughing for the last 3 or 4 days mostly dry nonproductive. He describes the pain as a sharp pain worsened with deep inspiration. She's not aware of any fevers or chills. She has no abdominal discomfort but some nausea. Left Chest Pain Score (Numeric/FACES): 6 - Related Data Allergies Allergy/AdvReac Type Severity Reaction Status Date / Time ceftriaxone sodium Allergy Anaphylactic Verified 08/14/18 03:43 [From Rocephin] Shock cetirizine [From Zyrtec] Allergy Hives Verified 08/14/18 03:43 diphenhydramine HCl Allergy Anaphylactic Verified 08/14/18 03:43 [From Benadryl] Shock erythromycin base Allergy Anaphylactic Verified 08/14/18 03:43 [Erythromycin Base] Shock hydrocodone bitartrate Allergy Anaphylactic Verified 08/14/18 03:43 [From Vicodin] Shock Penicillins Allergy Anaphylactic Verified 08/14/18 03:43 Shock prednisone Allergy Anaphylactic Verified 08/14/18 03:43 Shock Sulfa (Sulfonamide Allergy Anaphylactic Verified 08/14/18 03:43 Antibiotics) Shock aspirin AdvReac Vomiting Verified 08/14/18 03:43 Home Meds: Home Meds Losartan [Cozaar] 50 mg PO DAILY 11/16/17 [History] Metoprolol Succinate 25 mg PO DAILY 11/16/17 [History] Past Medical History - Past Health History Medical/Surgical History: Denies Medical/Surgical History Cardiovascular History: Reports: Blood Clots/VTE/DVT, Hypertension 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 History: Reports: Renal Calculus 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: 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: Musculoskeletal History: Reports: Fracture (left ankle) Neurological History: Reports: Headaches, Chronic Endocrine/Metabolic History: Reports: Obesity/BMI 30+ Hematologic History: Reports: Anemia, Blood Transfusion(s) Oncologic (Cancer) History: Reports: Leukemia - Infectious Disease History Infectious Disease History: Reports: Chicken Pox - Past Surgical History HEENT Surgical History: Reports: Oral Surgery ([place] teeth extraction) GI Surgical History: Reports: Appendectomy, Cholecystectomy Female Surgical History: Reports: Section (x 4), Tubal Ligation Musculoskeletal Surgical History: Reports: ORIF (left ankle) Social & Family History - Family History Family Medical History: Noncontributory HEENT: Reports: Glaucoma Cardiac: Reports: Hypertension, DC Neurological: Reports: CVA Oncologic: Reports: Cervix - Caffeine Use Caffeine Use: Reports: Soda Other Caffeine Use: a lot everyday - Living Situation & Occupation Living situation: Reports: Single, with Family (daughter + her boyfriend) Occupation: Employed ([employer], [employer]) ED ROS GENERAL - Review of Systems Review Of Systems: See Below Constitutional: Denies: Fever, Chills HEENT: Reports: No Symptoms Respiratory: Reports: Pleuritic Chest Pain Cardiovascular: Reports: Chest Pain GI/Abdominal: Reports: Nausea. Denies: Abdominal Pain, Constipation, Diarrhea, Vomiting : Reports: No Symptoms Musculoskeletal: Reports: No Symptoms Skin: Reports: No Symptoms Neurological: Reports: No Symptoms Psychiatric: Reports: No Symptoms ED EXAM, GENERAL - Physical Exam Exam: See Below Exam Limited By: No Limitations General Appearance: Alert, No Apparent Distress, Other (With watching the monitor she has a sinus irregularity most often in the 90s occasionally in the low 100s) Ears: Normal External Exam, Normal Canal, Hearing Grossly Normal, Normal TMs Nose: Normal Inspection, Normal Mucosa, No Blood Throat/Mouth: Normal Inspection, Normal Lips, Normal Gums, Normal Oropharynx, Normal Voice, No Airway Compromise, Other (She has poor dentition). No: Normal Teeth Head: Atraumatic, Normocephalic Respiratory/Chest: No Respiratory Distress, Lungs Clear, Normal Breath Sounds Cardiovascular: Regular Rate, Rhythm, No Edema, No Murmur GI/Abdominal: Normal Bowel Sounds, Soft, Non-Tender Back Exam: Normal Inspection. No: CVA Tenderness (L), CVA Tenderness (R) Extremities: Normal Inspection, Normal Range of Motion, No Pedal Edema Neurological: Alert, Oriented, Normal Cognition EKG INTERPRETATION EKG Date: 08/14/18 Rhythm: NSR [place]: Normal P-Wave: Present QRS: Normal ST-T: Other (Inverted T waves in leads 3 and F) Comparison: Change From Previous EKG (The inverted T waves in III and F her new otherwise no significant changes) EKG Interpretation Comments: inverted T's in III and F baseline artifact compared to October 2015 Course - Vital Signs Last Recorded V/S: Last Vital Signs Temp 37.3 C 08/14/18 03:40 Pulse 102 H 08/14/18 03:40 Resp 16 08/14/18 03:40 BP 155/100 H 08/14/18 04:17 Pulse Ox 98 08/14/18 03:40 - Orders/Labs/Meds Orders: Active Orders 24 hr Category Date Time Status EKG Documentation Completion [RC] STAT Care 08/14/18 03:58 Active Chest 1V Frontal [CR] Stat Exams 08/14/18 03:58 Taken Ketorolac [Toradol] Med 08/14/18 04:57 Once 30 mg IM ONETIME ONE Nitroglycerin [Nitrostat] Med 08/14/18 04:02 Active 0.4 mg SL Q5M PRN Sodium Chloride 0.9% [Normal Saline] 1,000 ml Med 08/14/18 04:15 Active IV ASDIRECTED Medication Orders Sodium Chloride (Normal Saline) 1,000 mls @ 25 mls/hr IV ASDIRECTED JUSTINE Stop: 08/18/18 04:03 Ketorolac Tromethamine (Toradol) 30 mg IM ONETIME ONE Stop: 08/14/18 04:58 Nitroglycerin (Nitrostat) 0.4 mg SL Q5M PRN PRN Reason: Chest Pain Last Admin: 08/14/18 04:17 Dose: 0.4 mg Labs: Laboratory Tests 08/14/18 08/14/18 08/14/18 Range/Units 04:09 04:09 04:09 WBC 12.37 H (3.98-10.04) K/mm3 RBC 4.68 (3.98-5.22) M/mm3 Hgb 13.2 (11.2-15.7) gm/L Hct 38.5 (34.1-44.9) % MCV 82.3 (79.4-94.8) fl MCH 28.2 (25.6-32.2) pg MCHC 34.3 (32.2-35.5) g/dl RDW Std Deviation 39.9 (36.4-46.3) fL Plt Count 290 (182-369) K/mm3 MPV 10.2 (9.4-12.3) fl Neutrophils % (Manual) 62 H (40-60) % Band Neutrophils % 0 (0-10) % Lymphocytes % (Manual) 26 (20-40) % Atypical Lymphs % 0 % Monocytes % (Manual) 6 (2-10) % Eosinophils % (Manual) 4 (0.7-5.8) % Basophils % (Manual) 2 H (0.1-1.2) Platelet Estimate Adequate Plt Morphology Comment Normal RBC Morph Comment Normal PT 10.0 (9.5-12.1) SECONDS INR < 0.93 APTT 26 (24-31) SECONDS D-Dimer, Quantitative (0.19-0.50) mg/L Sodium 140 (136-145) mEq/L Potassium 3.5 (3.5-5.1) mEq/L Chloride 104 (98-107) mEq/L Carbon Dioxide 24 (21-32) mEq/L Anion Gap 15.5 H (5-15) BUN 9 (7-18) mg/dL Creatinine 0.8 (0.55-1.02) mg/dL Est Cr Clr Drug Dosing 91.88 mL/min Estimated GFR (MDRD) > 60 (>60) mL/min BUN/Creatinine Ratio 11.3 L (14-18) Glucose 125 H (74-106) mg/dL Calcium 9.4 (8.5-10.1) mg/dL Total Bilirubin 0.8 (0.2-1.0) mg/dL AST 28 (15-37) U/L ALT 69 H (14-59) U/L Alkaline Phosphatase 74 (46-116) U/L Troponin I < 0.017 (0.00-0.056) ng/mL Total Protein 7.3 (6.4-8.2) g/dl Albumin 3.7 (3.4-5.0) g/dl Globulin 3.6 gm/dL Albumin/Globulin Ratio 1.0 (1-2) 08/14/18 Range/Units 04:09 WBC (3.98-10.04) K/mm3 RBC (3.98-5.22) M/mm3 Hgb (11.2-15.7) gm/L Hct (34.1-44.9) % MCV (79.4-94.8) fl MCH (25.6-32.2) pg MCHC (32.2-35.5) g/dl RDW Std Deviation (36.4-46.3) fL Plt Count (182-369) K/mm3 MPV (9.4-12.3) fl Neutrophils % (Manual) (40-60) % Band Neutrophils % (0-10) % Lymphocytes % (Manual) (20-40) % Atypical Lymphs % % Monocytes % (Manual) (2-10) % Eosinophils % (Manual) (0.7-5.8) % Basophils % (Manual) (0.1-1.2) Platelet Estimate Plt Morphology Comment RBC Morph Comment PT (9.5-12.1) SECONDS INR APTT (24-31) SECONDS D-Dimer, Quantitative 0.27 (0.19-0.50) mg/L Sodium (136-145) mEq/L Potassium (3.5-5.1) mEq/L Chloride (98-107) mEq/L Carbon Dioxide (21-32) mEq/L Anion Gap (5-15) BUN (7-18) mg/dL Creatinine (0.55-1.02) mg/dL Est Cr Clr Drug Dosing mL/min Estimated GFR (MDRD) (>60) mL/min BUN/Creatinine Ratio (14-18) Glucose (74-106) mg/dL Calcium (8.5-10.1) mg/dL Total Bilirubin (0.2-1.0) mg/dL AST (15-37) U/L ALT (14-59) U/L Alkaline Phosphatase (46-116) U/L Troponin I (0.00-0.056) ng/mL Total Protein (6.4-8.2) g/dl Albumin (3.4-5.0) g/dl Globulin gm/dL Albumin/Globulin Ratio (1-2) Meds: Medications Generic Name Dose Route Start Last Admin Trade Name Freq PRN Reason Stop Dose Admin Sodium Chloride 1,000 mls @ 25 mls/hr 08/14/18 04:15 Normal Saline IV 08/18/18 04:03 ASDIRECTED JUSTINE Ketorolac Tromethamine 30 mg 08/14/18 04:57 Toradol IM 08/14/18 04:58 ONETIME ONE Nitroglycerin 0.4 mg 08/14/18 04:02 08/14/18 04:17 Nitrostat SL 0.4 mg Q5M PRN Administration Chest Pain Discontinued Medications Generic Name Dose Route Start Last Admin Trade Name Soniya PRN Reason Stop Dose Admin Ondansetron HCl 4 mg 08/14/18 04:13 08/14/18 04:17 Zofran Odt PO 08/14/18 04:14 4 mg ONETIME ONE Administration - Re-Assessments/Exams Free Text/Narrative Re-Assessment/Exam: 08/14/18 04:59 Patient has remained stable during emergency room stay she uses a nitroglycerin and this caused a headache she was given Tylenol after labs were reviewed everything was unremarkable or nondiagnostic includes troponin and d-dimer offered to have the patient stay for another couple hours and recheck another troponin but the patient declined this. She is given Toradol 30 mg IM Departure - Departure Time of Disposition: 05:04 Disposition: Home, Self-Care 01 Clinical Impression: Chest wall pain - Discharge Information Referrals: Shayla Leong PA [Primary Care Provider] - Forms: ED Department Discharge Additional Instructions: Return to the emergency room with any questions problems worsening symptoms. Ibuprofen or Aleve as needed for discomfort. Follow-up with your regular provider at the end of the week if needed - My Orders Last 24 Hours: My Active Orders 08/14/18 03:58 EKG Documentation Completion [RC] STAT Chest 1V Frontal [CR] Stat 08/14/18 04:02 Nitroglycerin [Nitrostat] 0.4 mg SL Q5M PRN 08/14/18 04:15 Sodium Chloride 0.9% [Normal Saline] 1,000 ml IV ASDIRECTED 08/14/18 04:57 Ketorolac [Toradol] 30 mg IM ONETIME ONE - Assessment/Plan Last 24 Hours: My Active Orders 08/14/18 03:58 EKG Documentation Completion [RC] STAT Chest 1V Frontal [CR] Stat 08/14/18 04:02 Nitroglycerin [Nitrostat] 0.4 mg SL Q5M PRN 08/14/18 04:15 Sodium Chloride 0.9% [Normal Saline] 1,000 ml IV ASDIRECTED 08/14/18 04:57 Ketorolac [Toradol] 30 mg IM ONETIME ONE
[2018-08-14] MEDS ORDERED: Nitroglycerin 0.4 MG Tab.SL SL PRN (04:02)
[2018-08-14] MEDS ORDERED: Ondansetron 4 MG Tab.DIS PO ONE (04:13)
[2018-08-14] MEDS ORDERED: Sodium Chloride 0.9% 1,000 ML IV SCH (04:15)
[2018-08-14 04:18] VITALS: BP 155/100
[2018-08-14] MEDS ORDERED: Ketorolac 30 MG/ML SDV IM ONE (04:57)
--- NOTE | 2018-08-14 06:38 | CR ---
Chest: Portable view of the chest was obtained. Comparison: Prior chest x-ray of 09/02/17. Heart size and mediastinum are normal. Lungs are clear. Bony structures are unremarkable. Impression: 1. Nothing acute is seen on portable chest x-ray. Diagnostic code #1
== END 2018-08-14 05:19 | disposition home or self-care (01) ==
LOC: JD.ED 03:34
DX: R07.89 Other chest pain (principal); I10 Essential (primary) hypertension; E66.9 Obesity, unspecified; Z88.6 Allergy status to analgesic agent; Z88.2 Allergy status to sulfonamides; Z88.8 Allergy status to other drugs, medicaments and biological substances; Z79.899 Other long term (current) drug therapy; Z90.49 Acquired absence of other specified parts of digestive tract; Z98.51 Tubal ligation status; Z98.890 Other specified postprocedural states; Z88.0 Allergy status to penicillin; Z88.1 Allergy status to other antibiotic agents
CPT/HCPCS: 36415; 71045; 80053; 84484; 85007; 85027; 85379; 85610; 85730; 93005; 96372; 99285; A9270; J1885; 93010; 99284

== ENCOUNTER 2018-10-03 08:51 | Inpatient (IN) | payer MEDICAID ==
[~2018-10-03 08:51] MED LIST: Gentamicin 40 MG/ML 2 ML Vial IV SCH; Lidocaine 1%/Sod Bicarbonate in NS 8.4% 1 ML Syringe IDERM PRN; Sodium Chloride 0.9% 10 ML Syringe FLUSH PRN
[2018-10-03] MEDS ORDERED: metroNIDAZOLE/Normal Saline 500 MG in Premix Bag 1 BAG IV ONE (09:00)
--- NOTE | 2018-10-03 09:26 | PCM.PREANE ---
Preanesthetic Assessment - Anesthesia/Transfusion/Family Hx Anesthesia History: Prior Anesthesia Without Reaction Family History of Anesthesia Reaction: No Transfusion History: No Prior Transfusion(s) - Review of Systems General: No Symptoms Pulmonary: Cough Cardiovascular: No Symptoms Gastrointestinal: Nausea (anxiety) Neurological: No Symptoms Other: Reports: Depression, Anxiety - Physical Assessment NPO Status Date: 10/02/18 NPO Status Time: 00:00 Pulse: 80 O2 Sat by Pulse Oximetry: 96 Respiratory Rate: 20 Blood Pressure: 154/93 Temperature: 36.7 C Height: 1.68 m Weight: 103.419 kg ASA Class: 2 Mental Status: Alert & Oriented x3 Dentition: Reports: Normal Dentition Thyro-Mental Finger Breadths: 3 Mouth Opening Finger Breadths: 2 ROM/Head Extension: Full Lungs: Clear to Auscultation, Normal Respiratory Effort Cardiovascular: Regular Rate, Regular Rhythm, No Murmurs - Allergies Allergies/Adverse Reactions: Allergies Allergy/AdvReac Type Severity Reaction Status Date / Time ceftriaxone sodium Allergy Anaphylactic Verified 10/02/18 13:24 [From Rocephin] Shock cetirizine [From Zyrtec] Allergy Hives Verified 10/02/18 13:24 diphenhydramine HCl Allergy Anaphylactic Verified 10/02/18 13:24 [From Benadryl] Shock erythromycin base Allergy Anaphylactic Verified 10/02/18 13:24 [Erythromycin Base] Shock hydrocodone Allergy Anaphylactic Verified 10/02/18 13:24 Shock latex Allergy Hives Verified 10/02/18 13:24 Penicillins Allergy Anaphylactic Verified 10/02/18 13:24 Shock prednisone Allergy Anaphylactic Verified 10/02/18 13:24 Shock Sulfa (Sulfonamide Allergy Anaphylactic Verified 10/02/18 13:24 Antibiotics) Shock - Blood Blood Available: Yes Product(s) Available: PRBC - Anesthesia Plan Pre-Op Medication Ordered: Beta Arvind Beta Arvind: Metoprolol Med Last Dose Date: 10/02/18 Med Last Dose Time: 13:30 - Acknowledgements Anesthesia Type Planned: General Anesthesia Pt an Appropriate Candidate for the Planned Anesthesia: Yes Alternatives and Risks of Anesthesia Discussed w Pt/Guardian: Yes Pt/Guardian Understands and Agrees with Anesthesia Plan: Yes PreAnesthesia Questionnaire - Past Health History Medical/Surgical History: Denies Medical/Surgical History HEENT History: Reports: Otitis Media, 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 HEENT History: eustachian tube dysfunction Cardiovascular History: Reports: Blood Clots/VTE/DVT, High Cholesterol, Hypertension, 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 Cardiovascular History: chest pain Respiratory History: Reports: Bronchitis, Recurrent, 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 Respiratory History: cough Gastrointestinal History: Reports: GERD 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 History: Reports: Renal Calculus RN BURN History: Reports: Other OB/BYN History: menorrhagia Musculoskeletal History: Reports: Back Pain, Chronic, Fracture, Other (See Below ) Other Musculoskeletal History: right knee pain Neurological History: Reports: Headaches, Chronic, Migraines Psychiatric History: Reports: Depression Endocrine/Metabolic History: Reports: Obesity/BMI 30+ Hematologic History: Reports: Anemia, Blood Transfusion(s) Immunologic History: Reports: None Oncologic (Cancer) History: Reports: Leukemia Dermatologic History: Reports: None - Infectious Disease History Infectious Disease History: Reports: Chicken Pox - Past Surgical History Head Surgeries/Procedures: Reports: None HEENT Surgical History: Reports: Oral Surgery Cardiovascular Surgical History: Reports: Vascular Surgery Respiratory Surgical History: Reports: None GI Surgical History: Reports: Appendectomy, Cholecystectomy Female Surgical History: Reports: Section, Tubal Ligation Other Female Surgeries/Procedures: c secx4 Endocrine Surgical History: Reports: None Neurological Surgical History: Reports: None Musculoskeletal Surgical History: Reports: ORIF Other Musculoskeletal Surgeries/Procedures:: ankle surgery Oncologic Surgical History: Reports: None Dermatological Surgical History: Reports: None - SUBSTANCE USE Smoking Status *Q: Current Every Day Smoker Tobacco Use Within Last Twelve Months: Cigarettes Second Hand Smoke Exposure: No Days Per Week of Alcohol Use: 1 Number of Drinks Per Day: 0 Total Drinks Per Week: 0 Recreational Drug Use History: No Recreational Drug Type: Reports: Marijuana/Hashish (2 years ago) - HOME MEDS Home Medications: Home Meds Losartan [Cozaar] 50 mg PO DAILY 11/16/17 [History] Metoprolol Succinate 25 mg PO DAILY 11/16/17 [History] EPINEPHrine [Epipen] 1 dose IM ONETIME PRN 10/02/18 [History] - CURRENT (IN HOUSE) MEDS Current Meds: Current Medications Gentamicin Sulfate (Gentamicin) 0 mg IV .Pharmacy to Dose [facility] Lactated Ringer's (Ringers, Lactated) 1,000 mls @ 125 mls/hr IV ASDIRECTED JUSTINE Metronidazole 500 mg/ Premix 100 mls @ 100 mls/hr IV ONETIME ONE Stop: 10/03/18 09:59 Lidocaine/Sodium Bicarbonate (Buffered Lidocaine 1% In Ns 8.4%) 0.25 ml IDERM ONETIME PRN PRN Reason: Prior to IV Start Sodium Chloride (Saline Flush) 10 ml FLUSH ASDIRECTED PRN PRN Reason: Keep Vein Open
[2018-10-03] MEDS ORDERED: WATER IV ONE ×2 (09:30)
[2018-10-03] MEDS ORDERED: DEXTROSE 5% IV ONE ×2 (09:30)
[2018-10-03] MEDS ORDERED: GENTAMICIN IV ONE ×2 (09:30)
[2018-10-03] MEDS ORDERED: Scopolamine 1.5 MG Transdermal Patch TOP ONE (09:40)
[2018-10-03] MEDS ORDERED: Ondansetron 4 MG/2 ML SDV ONE (09:45)
[2018-10-03] MEDS ORDERED: Lactated Ringers 1,000 ML ONE ×2 (09:45→12:47)
[2018-10-03] MEDS ORDERED: Propofol 200 MG/20 ML SDV ONE (09:45)
[2018-10-03] MEDS ORDERED: Lidocaine 1% 4 ML ONE (09:45)
[2018-10-03] MEDS ORDERED: Midazolam 1 MG/ML 2 ML SDV ONE (09:45)
[2018-10-03] MEDS ORDERED: Rocuronium 50 MG/5 ML Vial ONE ×2 (09:45→12:40)
[2018-10-03] MEDS ORDERED: fentaNYL 250 MCG/5 ML SDV ONE (09:45)
[2018-10-03] MEDS ORDERED: ceFAZolin 1 GM Vial ONE (09:45)
[2018-10-03] MEDS ORDERED: Ketamine 500 mg/10 ML MDV ONE (09:46)
[2018-10-03] MEDS ORDERED: LORazepam 2 MG/ML SDV IVPUSH ONE (09:48)
[2018-10-03] MEDS: Lactated Ringers 1,000 ML IV SCH ×2 (10:00→15:31)
[2018-10-03] MEDS ORDERED: Lidocaine 1% with EPINEPHrine 1:100,000 20 ML MDV ONE (10:59)
[2018-10-03] MEDS ORDERED: Bupivacaine 0.5% 30 ML SDV ONE (10:59)
[2018-10-03] MEDS ORDERED: Sodium Chloride 0.9% 50 ML SDV ONE (10:59)
[2018-10-03] MEDS ORDERED: Ondansetron 4 MG/2 ML SDV IVPUSH PRN ×2 (12:36→16:21)
[2018-10-03] MEDS ORDERED: HYDROmorphone 0.5 MG/0.5 ML Syringe ONE ×4 (12:40→13:58)
[2018-10-03] MEDS ORDERED: ePHEDrine/Normal Saline 25 MG/5 ML Syringe ONE (12:48)
[2018-10-03] MEDS ORDERED: Phenylephrine/Normal Saline 100 MCG/ML 10 ML Syringe ONE (12:48)
--- NOTE | 2018-10-03 12:58 | PCM.SN ---
- Free Text/Narrative Note: Addendum to Preoperative Assessment: Significant decay to dentition, rotten/ black/brown teeth. Multiple missing and worn to gumline, sharp edges noted.
[2018-10-03] MEDS ORDERED: fentaNYL 100 MCG/2 ML SDV ONE (13:06)
[2018-10-03] MEDS ORDERED: Albuterol 6.7 GM Inhaler INH ONE (13:26)
--- NOTE | 2018-10-03 14:22 | PCM.POSTAN ---
POST ANESTHESIA ASSESSMENT - MENTAL STATUS Mental Status: Alert, Oriented - VITAL SIGNS Pulse Rate: 83 SaO2: 99 Resp Rate: 21 Blood Pressure: 142/74 Temperature: 37.1 C - RESPIRATORY Respiratory Status: Respiratory Rate WNL, Airway Patent, O2 Saturation Stable, Supplemental Oxygen - CARDIOVASCULAR CV Status: Pulse Rate WNL, Blood Pressure Stable - GASTROINTESTINAL GI Status: No Symptoms - PAIN Pain Score: 0 - POST OP HYDRATION Hydration Status: Adequate & Stable
[2018-10-03] MEDS: fentaNYL 100 MCG/2 ML SDV IVPUSH PRN ×2 (14:25→14:45)
[2018-10-03] MEDS ORDERED: Haloperidol Lactate 5 MG/ML SDV IVPUSH ONE (14:29)
[2018-10-03] MEDS: HYDROmorphone 0.5 MG/0.5 ML Syringe IVPUSH PRN ×2 (14:35→15:13)
[2018-10-03] MEDS ORDERED: Metoclopramide 10 MG/2 ML SDV IVPUSH ONE (14:50)
--- NOTE | 2018-10-03 15:09 | PCM.OPNOTE ---
- General Post-Op/Procedure Note Date of Surgery/Procedure: 10/03/18 Operative Procedure(s): Total abdominal hysterectomy with bilateral salpingectomy following conversion from diagnostic laparoscopy Findings: Abdominal cavity with significant amount of adhesions from omentum to anterior abdominal wall. Significant adhesion from the uterus to the anterior abdominal wall. Grossly normal-appearing bilateral fallopian tubes and ovaries. There was a surgical disruption in the midportion of the fallopian tube on bilateral sides from previous tubal ligation. Pre Op Diagnosis: Menorrhagia with irregular menstrual cycles and dysmenorrhea Post-Op Diagnosis: Same Anesthesia Technique: General ET Tube Primary Surgeon: Sim Hart Anesthesia Provider: Sabi Barker Steam Shovel Operating Engineer: Esteban Tiwari Steam Shovel Operating Engineer: Jacob Abel Reason Steam Shovel Operating Engineer Was Necessary: Patient safety and reduction of morbidity and mortality Role of Steam Shovel Operating Engineer: Laparoscopic skills for the upper scopic portion of the case and retraction and surgical knowledge of procedure for the open portion of the case Pathology: Cervix, uterus, bilateral fallopian tubes Fluid Replacement, Intraop: 3,500 Output, Urine Amount: 200 EBL in mLs: 500 Complications: Significant scarring internally leading to conversion from laparoscopic case to abdominal hysterectomy Condition: Good Free Text/Narrative:: Procedure in detail: The patient was seen in the pre-operative holding area and consents were reviewed for laparoscopic-assisted vaginal hysterectomy, bilateral salpingectomy, possible unilateral or bilateral oophorectomy and possible total abdominal hysterectomy. The patient was taken back to OR #2 and was placed in dorsal supine position. The patient was given general anesthesia with endotracheal tube that was placed without difficulty. The patient was then prepped and draped in a normal sterile fashion. Attention was then turned to her umbilicus and this was injected with 0.5% Marcaine and a 5 mm stab incision was made with a scalpel. A Veress needle was then inserted through the incision. The gas was turned on with an opening pressure of 8 mmHg. Pneumoperitoneum was continued until 15 mmHg pressure. A 5 mm trocar was then inserted under direct visualization through the incision without difficulty. A global view of the abdomen was taken and noted to have significant amount of adhesions of the omentum to the anterior abdominal wall with suspicion that the umbilical trocar went through the omentum. Attention was then turned to the right lower quadrant and an avascular area approximately fdc between the ASIS and the umbilicus was visualized and the skin was injected with local anesthetic. A skin incision was made using a scalpel. A 5 mm trocar was then inserted under direct visualization with laparoscope. The camera was then placed in the right lower quadrant trocar to view the umbilical trocar. There appeared to be no injury to the omentum but there was significant omental adhesion around the umbilicus and the upper abdomen. Additional views of the uterus were taken and there was noted to be significant adhesion from the entirety of the anterior surface of the uterus to the anterior abdominal wall. Decision was made at this time that this case would not be able to be performed laparoscopically and was converted to an abdominal hysterectomy procedure. The posterior uterus did not appear to have any adhesions and the posterior cul-de-sac was free of adhesions. The skin was infiltrated approximately 4 fingerbreadths above the pubic symphysis using 0.5% marcaine for local anesthesia. A Pfannenstiel incision was made using a scalpel. The incision was then taken down to the fascia with Bovie cautery. The fascia was then incised in the midline using Bovie cautery and extended bilaterally with Pelayo scissors. Abad clamps were used to grasp the inferior edge of the fascial incision and the rectus muscles dissected off bluntly and sharply in the midline. The superior aspect of the fascia was then grasped with Abad clamps and similarly the rectus muscles were dissected off of the fascia bluntly and sharply. The rectus muscles were then in the midline and the peritoneum was entered bluntly. The intestines were then packed away gently with moist laps. The uterus was then visualized and was noted to be overall normal in appearance except for dense adhesions to the anterior abdominal wall. The fallopian tubes were noted be overall normal bilaterally except for a small portion that had surgical disruption from previous bilateral tubal ligation. The ovaries were overall normal in appearance. The left fallopian tube was then grasped and dissected away from the underlying ovarian tissue using Metzenbaum scissors. This was then excised using Enseal vessel sealing device along the broad ligament to the uterus. The left round ligament and utero ovarian ligament were then grasped using the Enseal device cauterized and ligated. Attention was then turned to the right side of the uterus and the fallopian tube was grasped in the Enseal device was used to cauterize and ligate the fallopian tube from the broad ligament to the level of the uterus. The right round ligament and utero-ovarian ligament were then clamped, cauterized and ligated using the Enseal device. The uterus was then dissected away from the anterior abdominal wall using sharp dissection with Pelayo scissors and the bladder flap was able to be developed using sharp and blunt dissection. The Enseal device was then used to serially clamp, cauterize and ligate the broad ligament down to the level of the cervix on the right side of the uterus. Hemostasis was noted. Attention was then turned to the left side of the uterus and the broad ligament was again clamped, cauterized and ligated using the Enseal vessel sealing device. This was continued to the level of the cervix. The vaginal cuff edges were then grasped and the curved Kristan clamps were used to come across the vagina just past the cervix. The uterus and cervix were then cut away and handed off as specimen. The vaginal cuff was then closed using [id number] sutures of 0-Monocryl. There was noted to be bleeding from the lateral edges of the vaginal cuff. [id number] sutures were placed in these areas for hemostasis. There was also noted to be bleeding from the ovary where the fallopian tube had been dissected off and this was cauterized and was hemostatic. There was also noted to be some bleeding from the posterior peritoneal edge of the vaginal cuff and this was cauterized using Bovie cautery. The pelvis was then packed with lap sponges and pressure applied for 3 minutes and after removal of the lap sponges it was noted to be overall hemostatic. There was some additional bleeding from the tissue over the bladder and FloSeal was placed for hemostasis. All the pedicles were inspected at this time and were found to be hemostatic. The fascia was then closed with 0-PDS suture in a running fashion. The subcutaneous tissue was reapproximated using 0 Monocryl The skin incision was then closed with 4-0 Monocryl suture. The patient was then extubated and taken out of the operating room in stable condition. Sponge, lap and needle counts were correct at the end of the case. There were no complications other than conversion from laparoscopic to abdominal hysterectomy.
[2018-10-03] MEDS ORDERED: HYDROmorphone 0.5 MG/0.5 ML Syringe IVPUSH PRN (16:21)
[2018-10-03] MEDS ORDERED: Acetaminophen/oxyCODONE 325-5 MG Tab PO PRN (16:21)
[2018-10-03] MEDS: Acetaminophen/oxyCODONE 325-5 MG Tab PO PRN (17:30)
[2018-10-03] MEDS: Metoprolol Succinate 50 MG Tab.ER PO SCH (17:33)
[2018-10-03] MEDS ORDERED: Enoxaparin 40 MG/0.4 ML Syringe SUBCUT ONE (20:42)
[2018-10-03] MEDS: Ketorolac 30 MG/ML SDV IVPUSH SCH (21:09)
[2018-10-03] MEDS: Losartan 25 MG Tab PO SCH (21:18)
[2018-10-03] MEDS: Docusate Sodium 100 MG Cap PO SCH (21:29)
[2018-10-03] MEDS ORDERED: HYDROmorphone 1 MG/ML Syringe IVPUSH PRN (22:32)
[2018-10-04] MEDS: Ketorolac 30 MG/ML SDV IVPUSH SCH (03:45)
[2018-10-04] MEDS: Acetaminophen/oxyCODONE 325-5 MG Tab PO PRN ×2 (06:13→11:27)
--- NOTE | 2018-10-04 07:53 | PCM48HPAN ---
Post Anesthesia Note - EVALUATION WITHIN 48HRS OF ANESTHETIC Vital Signs in Normal Range: Yes Patient Participated in Evaluation: Yes Respiratory Function Stable: Yes Airway Patent: Yes Cardiovascular Function Stable: Yes Hydration Status Stable: Yes Pain Control Satisfactory: Yes Nausea and Vomiting Control Satisfactory: Yes Mental Status Recovered: Yes
[2018-10-04] MEDS ORDERED: Ibuprofen 600 MG Tab PO PRN ×2 (08:14→09:45)
--- NOTE | 2018-10-04 08:22 | PCM.SN ---
- Free Text/Narrative Note: Post Op Note Subjective: Patient reports that her pain is improving and that she is feeling better than last night. Pain minimal and controlled with oral medications and Toradol. Rates her pain at a 5/10 currently. Feeling nauseous and only tolerating liquids at this time. Reports passing flatus. Stover catheter in place with dark urine. 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 Ambulating without difficulty. Objective: Vitals Vital Signs - 24 hr 10/03/18 10/03/18 10/03/18 09:00 09:33 14:00 Temperature 36.7 C Temperature [ 36.7 C 37.1 C Temporal] Pulse, 80 Peripheral Pulse, 80 83 Peripheral [ Right] Respiratory 20 20 21 H Rate Blood Pressure 154/93 H Blood Pressure 154/93 H 142/74 H [Right Upper Arm] O2 Sat by Pulse 96 96 99 Oximetry O2 Sat by Pulse Oximetry [ Nasal Cannula] O2 Sat by Pulse 99 Oximetry [ Simple Mask] 10/03/18 10/03/18 10/03/18 14:15 14:22 14:24 Temperature 37.1 C Temperature [ 36.9 C Temporal] Pulse, 83 Peripheral Pulse, 86 Peripheral [ Right] Respiratory 21 H 21 H Rate Blood Pressure 142/74 H Blood Pressure 117/62 [Right Upper Arm] O2 Sat by Pulse 100 99 Oximetry O2 Sat by Pulse 100 Oximetry [ Nasal Cannula] O2 Sat by Pulse Oximetry [ Simple Mask] 10/03/18 10/03/18 10/03/18 14:30 14:45 14:50 Temperature Temperature [ 36.8 C Temporal] Pulse, Peripheral Pulse, 79 88 Peripheral [ Right] Respiratory 18 16 Rate Blood Pressure Blood Pressure 147/84 H 153/81 H [Right Upper Arm] O2 Sat by Pulse 97 96 Oximetry O2 Sat by Pulse 96 Oximetry [ Nasal Cannula] O2 Sat by Pulse Oximetry [ Simple Mask] 10/03/18 10/03/18 10/03/18 15:00 15:15 15:30 Temperature Temperature [ 37.1 C Temporal] Pulse, Peripheral Pulse, 84 72 92 Peripheral [ Right] Respiratory 17 19 15 Rate Blood Pressure Blood Pressure 150/75 H 137/77 128/71 [Right Upper Arm] O2 Sat by Pulse 96 95 96 Oximetry O2 Sat by Pulse Oximetry [ Nasal Cannula] O2 Sat by Pulse Oximetry [ Simple Mask] 10/03/18 10/03/18 10/03/18 15:45 16:17 17:33 Temperature 36.7 C Temperature [ 37.0 C Temporal] Pulse, 72 64 Peripheral Pulse, 86 Peripheral [ Right] Respiratory 15 19 Rate Blood Pressure 129/72 131/69 Blood Pressure 147/80 H [Right Upper Arm] O2 Sat by Pulse 97 95 Oximetry O2 Sat by Pulse 97 Oximetry [ Nasal Cannula] O2 Sat by Pulse Oximetry [ Simple Mask] 10/03/18 10/03/18 10/03/18 17:34 20:24 21:18 Temperature 36.8 C 36.9 C Temperature [ Temporal] Pulse, 64 68 Peripheral Pulse, Peripheral [ Right] Respiratory 20 16 Rate Blood Pressure 131/69 127/80 127/80 Blood Pressure [Right Upper Arm] O2 Sat by Pulse 95 96 Oximetry O2 Sat by Pulse Oximetry [ Nasal Cannula] O2 Sat by Pulse Oximetry [ Simple Mask] 10/03/18 10/04/18 23:09 03:52 Temperature 37.7 C 37.7 C Temperature [ Temporal] Pulse, 62 64 Peripheral Pulse, Peripheral [ Right] Respiratory 14 14 Rate Blood Pressure 123/57 L 139/65 Blood Pressure [Right Upper Arm] O2 Sat by Pulse 92 L 94 L Oximetry O2 Sat by Pulse Oximetry [ Nasal Cannula] O2 Sat by Pulse Oximetry [ Simple Mask] I/O: Intake & Output 10/02/18 10/03/18 10/04/18 10/05/18 06:59 06:59 06:59 06:59 Intake Total 5325 Output Total 1850 Balance 3475 Gen: No acute distress, alert and oriented Lungs: Clear to auscultation bilaterally Heart: Regular rate and rhythm Abdomen: Soft, minimal appropriate tenderness, nondistended, bowel sounds positive Incision: Healing well, no bleeding or discharge, no erythema present, Steri- Strips over the incision Laboratory Tests 10/03/18 10/03/18 10/03/18 Range/Units 09:57 14:25 20:00 WBC 17.39 H 15.49 H (3.98-10.04) K/mm3 RBC 4.15 4.09 (3.98-5.22) M/mm3 Hgb 11.8 11.7 (11.2-15.7) gm/L Hct 35.2 34.6 (34.1-44.9) % MCV 84.8 84.6 (79.4-94.8) fl MCH 28.4 28.6 (25.6-32.2) pg MCHC 33.5 33.8 (32.2-35.5) g/dl RDW Std Deviation 43.4 43.1 (36.4-46.3) fL Plt Count 205 196 (182-369) K/mm3 MPV 10.3 10.0 (9.4-12.3) fl Neut % (Auto) 83.8 H 79.6 H (34.0-71.1) % Lymph % (Auto) 10.8 L 12.7 L (19.3-51.7) % [place] % (Auto) 4.6 L 7.0 (4.7-12.5) % Eos % (Auto) 0.4 L 0.3 L (0.7-5.8) Baso % (Auto) 0.1 0.1 (0.1-1.2) % Neut # (Auto) 14.57 H 12.35 H (1.56-6.13) K/mm3 Lymph # (Auto) 1.88 1.96 (1.18-3.74) K/mm3 [place] # (Auto) 0.80 H 1.09 H (0.24-0.36) K/mm3 Eos # (Auto) 0.07 0.04 (0.04-0.36) K/mm3 Baso # (Auto) 0.02 0.01 (0.01-0.08) K/mm3 Urine Color (Yellow) Urine Appearance (Clear) Urine pH (5.0-8.0) Ur Specific [place] (1.005-1.030) Urine Protein (Negative) Urine Glucose (UA) (Negative) Urine Ketones (Negative) Urine Occult Blood (Negative) Urine Nitrite (Negative) Urine Bilirubin (Negative) Urine Urobilinogen (0.2-1.0) Ur Leukocyte Esterase (Negative) Urine RBC (0-5) /hpf Urine WBC (0-5) /hpf Ur Epithelial Cells (0-5) /hpf Urine Bacteria (FEW) /hpf Urine Mucus (FEW) /hpf Urine HCG, Qual (NEGATIVE) Blood Type A POSITIVE Gel Antibody Screen Negative 10/03/18 10/03/18 10/04/18 Range/Units Unknown Unknown 05:27 WBC 12.12 H (3.98-10.04) K/mm3 RBC 4.01 (3.98-5.22) M/mm3 Hgb 11.3 (11.2-15.7) gm/L Hct 34.3 (34.1-44.9) % MCV 85.5 (79.4-94.8) fl MCH 28.2 (25.6-32.2) pg MCHC 32.9 (32.2-35.5) g/dl RDW Std Deviation 44.0 (36.4-46.3) fL Plt Count 199 (182-369) K/mm3 MPV 10.6 (9.4-12.3) fl Neut % (Auto) 74.3 H (34.0-71.1) % Lymph % (Auto) 16.2 L (19.3-51.7) % [place] % (Auto) 7.4 (4.7-12.5) % Eos % (Auto) 1.5 (0.7-5.8) Baso % (Auto) 0.2 (0.1-1.2) % Neut # (Auto) 9.01 H (1.56-6.13) K/mm3 Lymph # (Auto) 1.96 (1.18-3.74) K/mm3 [place] # (Auto) 0.90 H (0.24-0.36) K/mm3 Eos # (Auto) 0.18 (0.04-0.36) K/mm3 Baso # (Auto) 0.02 (0.01-0.08) K/mm3 Urine Color Yellow (Yellow) Urine Appearance Clear (Clear) Urine pH 6.5 (5.0-8.0) Ur Specific [place] > or = 1.030 (1.005-1.030) Urine Protein 2+ H (Negative) Urine Glucose (UA) Negative (Negative) Urine Ketones Negative (Negative) Urine Occult Blood 1+ H (Negative) Urine Nitrite Negative (Negative) Urine Bilirubin Negative (Negative) Urine Urobilinogen 0.2 (0.2-1.0) Ur Leukocyte Esterase Negative (Negative) Urine RBC 0-5 (0-5) /hpf Urine WBC 0-5 (0-5) /hpf Ur Epithelial Cells 10-20 H (0-5) /hpf Urine Bacteria Not seen (FEW) /hpf Urine Mucus Not seen (FEW) /hpf Urine HCG, Qual Negative (NEGATIVE) Blood Type Gel Antibody Screen Assesment/Plan: 33-year-old with abnormal uterine bleeding, menorrhagia with her irregular cycles and dysmenorrhea status post total abdominal hysterectomy and bilateral salpingectomy POD #1 Doing well No concerns at this time Routine post op care Monitor vitals DC Stover this morning and monitor for normal voids Discontinue Toradol and transitioned to ibuprofen 6 mg every 6 hours Zofran 4 mg ODT for nausea to try to improve her appetite Continue Lovenox this afternoon prior to discharge and teach patient how to inject Lovenox prior to discharge Anticipate discharge home today Sim Hart MD 8:20 AM 10/04/2018
[2018-10-04] MEDS: Metoprolol Succinate 50 MG Tab.ER PO SCH (09:01)
[2018-10-04] MEDS: Losartan 25 MG Tab PO SCH (09:01)
[2018-10-04] MEDS: Docusate Sodium 100 MG Cap PO SCH (09:02)
[2018-10-04] MEDS ORDERED: Enoxaparin 40 MG/0.4 ML Syringe SUBCUT ONE (12:30)
--- NOTE | 2018-10-04 12:30 | PCM.DCSUM1 ---
Discharge Summary - Hospital Course Free Text/Narrative:: Procedure in detail: The patient was seen in the pre-operative holding area and consents were reviewed for laparoscopic-assisted vaginal hysterectomy, bilateral salpingectomy, possible unilateral or bilateral oophorectomy and possible total abdominal hysterectomy. The patient was taken back to OR #2 and was placed in dorsal supine position. The patient was given general anesthesia with endotracheal tube that was placed without difficulty. The patient was then prepped and draped in a normal sterile fashion. Attention was then turned to her umbilicus and this was injected with 0.5% Marcaine and a 5 mm stab incision was made with a scalpel. A Veress needle was then inserted through the incision. The gas was turned on with an opening pressure of 8 mmHg. Pneumoperitoneum was continued until 15 mmHg pressure. A 5 mm trocar was then inserted under direct visualization through the incision without difficulty. A global view of the abdomen was taken and noted to have significant amount of adhesions of the omentum to the anterior abdominal wall with suspicion that the umbilical trocar went through the omentum. Attention was then turned to the right lower quadrant and an avascular area approximately snf between the ASIS and the umbilicus was visualized and the skin was injected with local anesthetic. A skin incision was made using a scalpel. A 5 mm trocar was then inserted under direct visualization with laparoscope. The camera was then placed in the right lower quadrant trocar to view the umbilical trocar. There appeared to be no injury to the omentum but there was significant omental adhesion around the umbilicus and the upper abdomen. Additional views of the uterus were taken and there was noted to be significant adhesion from the entirety of the anterior surface of the uterus to the anterior abdominal wall. Decision was made at this time that this case would not be able to be performed laparoscopically and was converted to an abdominal hysterectomy procedure. The posterior uterus did not appear to have any adhesions and the posterior cul-de-sac was free of adhesions. The skin was infiltrated approximately 4 fingerbreadths above the pubic symphysis using 0.5% marcaine for local anesthesia. A Pfannenstiel incision was made using a scalpel. The incision was then taken down to the fascia with Bovie cautery. The fascia was then incised in the midline using Bovie cautery and extended bilaterally with Pelayo scissors. Abad clamps were used to grasp the inferior edge of the fascial incision and the rectus muscles dissected off bluntly and sharply in the midline. The superior aspect of the fascia was then grasped with Abad clamps and similarly the rectus muscles were dissected off of the fascia bluntly and sharply. The rectus muscles were then in the midline and the peritoneum was entered bluntly. The intestines were then packed away gently with moist laps. The uterus was then visualized and was noted to be overall normal in appearance except for dense adhesions to the anterior abdominal wall. The fallopian tubes were noted be overall normal bilaterally except for a small portion that had surgical disruption from previous bilateral tubal ligation. The ovaries were overall normal in appearance. The left fallopian tube was then grasped and dissected away from the underlying ovarian tissue using Metzenbaum scissors. This was then excised using Enseal vessel sealing device along the broad ligament to the uterus. The left round ligament and utero ovarian ligament were then grasped using the Enseal device cauterized and ligated. Attention was then turned to the right side of the uterus and the fallopian tube was grasped in the Enseal device was used to cauterize and ligate the fallopian tube from the broad ligament to the level of the uterus. The right round ligament and utero-ovarian ligament were then clamped, cauterized and ligated using the Enseal device. The uterus was then dissected away from the anterior abdominal wall using sharp dissection with Pelayo scissors and the bladder flap was able to be developed using sharp and blunt dissection. The Enseal device was then used to serially clamp, cauterize and ligate the broad ligament down to the level of the cervix on the right side of the uterus. Hemostasis was noted. Attention was then turned to the left side of the uterus and the broad ligament was again clamped, cauterized and ligated using the Enseal vessel sealing device. This was continued to the level of the cervix. The vaginal cuff edges were then grasped and the curved Kristan clamps were used to come across the vagina just past the cervix. The uterus and cervix were then cut away and handed off as specimen. The vaginal cuff was then closed using [id number] sutures of 0-Monocryl. There was noted to be bleeding from the lateral edges of the vaginal cuff. [id number]-[id number] sutures were placed in these areas for hemostasis. There was also noted to be bleeding from the ovary where the fallopian tube had been dissected off and this was cauterized and was hemostatic. There was also noted to be some bleeding from the posterior peritoneal edge of the vaginal cuff and this was cauterized using Bovie cautery. The pelvis was then packed with lap sponges and pressure applied for 3 minutes and after removal of the lap sponges it was noted to be overall hemostatic. There was some additional bleeding from the tissue over the bladder and FloSeal was placed for hemostasis. All the pedicles were inspected at this time and were found to be hemostatic. The fascia was then closed with 0-PDS suture in a running fashion. The subcutaneous tissue was reapproximated using 0 Monocryl The skin incision was then closed with 4-0 Monocryl suture. The patient was then extubated and taken out of the operating room in stable condition. Sponge, lap and needle counts were correct at the end of the case. There were no complications other than conversion from laparoscopic to abdominal hysterectomy. HPI Initial Comments: Procedure in detail: The patient was seen in the pre-operative holding area and consents were reviewed for laparoscopic-assisted vaginal hysterectomy, bilateral salpingectomy, possible unilateral or bilateral oophorectomy and possible total abdominal hysterectomy. The patient was taken back to OR #2 and was placed in dorsal supine position. The patient was given general anesthesia with endotracheal tube that was placed without difficulty. The patient was then prepped and draped in a normal sterile fashion. Attention was then turned to her umbilicus and this was injected with 0.5% Marcaine and a 5 mm stab incision was made with a scalpel. A Veress needle was then inserted through the incision. The gas was turned on with an opening pressure of 8 mmHg. Pneumoperitoneum was continued until 15 mmHg pressure. A 5 mm trocar was then inserted under direct visualization through the incision without difficulty. A global view of the abdomen was taken and noted to have significant amount of adhesions of the omentum to the anterior abdominal wall with suspicion that the umbilical trocar went through the omentum. Attention was then turned to the right lower quadrant and an avascular area approximately snf between the ASIS and the umbilicus was visualized and the skin was injected with local anesthetic. A skin incision was made using a scalpel. A 5 mm trocar was then inserted under direct visualization with laparoscope. The camera was then placed in the right lower quadrant trocar to view the umbilical trocar. There appeared to be no injury to the omentum but there was significant omental adhesion around the umbilicus and the upper abdomen. Additional views of the uterus were taken and there was noted to be significant adhesion from the entirety of the anterior surface of the uterus to the anterior abdominal wall. Decision was made at this time that this case would not be able to be performed laparoscopically and was converted to an abdominal hysterectomy procedure. The posterior uterus did not appear to have any adhesions and the posterior cul-de-sac was free of adhesions. The skin was infiltrated approximately 4 fingerbreadths above the pubic symphysis using 0.5% marcaine for local anesthesia. A Pfannenstiel incision was made using a scalpel. The incision was then taken down to the fascia with Bovie cautery. The fascia was then incised in the midline using Bovie cautery and extended bilaterally with Pelayo scissors. Abad clamps were used to grasp the inferior edge of the fascial incision and the rectus muscles dissected off bluntly and sharply in the midline. The superior aspect of the fascia was then grasped with Abad clamps and similarly the rectus muscles were dissected off of the fascia bluntly and sharply. The rectus muscles were then in the midline and the peritoneum was entered bluntly. The intestines were then packed away gently with moist laps. The uterus was then visualized and was noted to be overall normal in appearance except for dense adhesions to the anterior abdominal wall. The fallopian tubes were noted be overall normal bilaterally except for a small portion that had surgical disruption from previous bilateral tubal ligation. The ovaries were overall normal in appearance. The left fallopian tube was then grasped and dissected away from the underlying ovarian tissue using Metzenbaum scissors. This was then excised using Enseal vessel sealing device along the broad ligament to the uterus. The left round ligament and utero ovarian ligament were then grasped using the Enseal device cauterized and ligated. Attention was then turned to the right side of the uterus and the fallopian tube was grasped in the Enseal device was used to cauterize and ligate the fallopian tube from the broad ligament to the level of the uterus. The right round ligament and utero-ovarian ligament were then clamped, cauterized and ligated using the Enseal device. The uterus was then dissected away from the anterior abdominal wall using sharp dissection with Pelayo scissors and the bladder flap was able to be developed using sharp and blunt dissection. The Enseal device was then used to serially clamp, cauterize and ligate the broad ligament down to the level of the cervix on the right side of the uterus. Hemostasis was noted. Attention was then turned to the left side of the uterus and the broad ligament was again clamped, cauterized and ligated using the Enseal vessel sealing device. This was continued to the level of the cervix. The vaginal cuff edges were then grasped and the curved Kristan clamps were used to come across the vagina just past the cervix. The uterus and cervix were then cut away and handed off as specimen. The vaginal cuff was then closed using [id number] sutures of 0-Monocryl. There was noted to be bleeding from the lateral edges of the vaginal cuff. [id number] sutures were placed in these areas for hemostasis. There was also noted to be bleeding from the ovary where the fallopian tube had been dissected off and this was cauterized and was hemostatic. There was also noted to be some bleeding from the posterior peritoneal edge of the vaginal cuff and this was cauterized using Bovie cautery. The pelvis was then packed with lap sponges and pressure applied for 3 minutes and after removal of the lap sponges it was noted to be overall hemostatic. There was some additional bleeding from the tissue over the bladder and FloSeal was placed for hemostasis. All the pedicles were inspected at this time and were found to be hemostatic. The fascia was then closed with 0-PDS suture in a running fashion. The subcutaneous tissue was reapproximated using 0 Monocryl The skin incision was then closed with 4-0 Monocryl suture. The patient was then extubated and taken out of the operating room in stable condition. Sponge, lap and needle counts were correct at the end of the case. There were no complications other than conversion from laparoscopic to abdominal hysterectomy. Brief History: Procedure in detail: The patient was seen in the pre-operative holding area and consents were reviewed for laparoscopic-assisted vaginal hysterectomy, bilateral salpingectomy, possible unilateral or bilateral oophorectomy and possible total abdominal hysterectomy. The patient was taken back to [facility] and was placed in dorsal supine position. The patient was given general anesthesia with endotracheal tube that was placed without difficulty. The patient was then prepped and draped in a normal sterile fashion. Attention was then turned to her umbilicus and this was injected with 0.5% Marcaine and a 5 mm stab incision was made with a scalpel. A Veress needle was then inserted through the incision. The gas was turned on with an opening pressure of 8 mmHg. Pneumoperitoneum was continued until 15 mmHg pressure. A 5 mm trocar was then inserted under direct visualization through the incision without difficulty. A global view of the abdomen was taken and noted to have significant amount of adhesions of the omentum to the anterior abdominal wall with suspicion that the umbilical trocar went through the omentum. Attention was then turned to the right lower quadrant and an avascular area approximately snf between the ASIS and the umbilicus was visualized and the skin was injected with local anesthetic. A skin incision was made using a scalpel. A 5 mm trocar was then inserted under direct visualization with laparoscope. The camera was then placed in the right lower quadrant trocar to view the umbilical trocar. There appeared to be no injury to the omentum but there was significant omental adhesion around the umbilicus and the upper abdomen. Additional views of the uterus were taken and there was noted to be significant adhesion from the entirety of the anterior surface of the uterus to the anterior abdominal wall. Decision was made at this time that this case would not be able to be performed laparoscopically and was converted to an abdominal hysterectomy procedure. The posterior uterus did not appear to have any adhesions and the posterior cul-de-sac was free of adhesions. The skin was infiltrated approximately 4 fingerbreadths above the pubic symphysis using 0.5% marcaine for local anesthesia. A Pfannenstiel incision was made using a scalpel. The incision was then taken down to the fascia with Bovie cautery. The fascia was then incised in the midline using Bovie cautery and extended bilaterally with Pelayo scissors. Abad clamps were used to grasp the inferior edge of the fascial incision and the rectus muscles dissected off bluntly and sharply in the midline. The superior aspect of the fascia was then grasped with Abad clamps and similarly the rectus muscles were dissected off of the fascia bluntly and sharply. The rectus muscles were then in the midline and the peritoneum was entered bluntly. The intestines were then packed away gently with moist laps. The uterus was then visualized and was noted to be overall normal in appearance except for dense adhesions to the anterior abdominal wall. The fallopian tubes were noted be overall normal bilaterally except for a small portion that had surgical disruption from previous bilateral tubal ligation. The ovaries were overall normal in appearance. The left fallopian tube was then grasped and dissected away from the underlying ovarian tissue using Metzenbaum scissors. This was then excised using Enseal vessel sealing device along the broad ligament to the uterus. The left round ligament and utero ovarian ligament were then grasped using the Enseal device cauterized and ligated. Attention was then turned to the right side of the uterus and the fallopian tube was grasped in the Enseal device was used to cauterize and ligate the fallopian tube from the broad ligament to the level of the uterus. The right round ligament and utero-ovarian ligament were then clamped, cauterized and ligated using the Enseal device. The uterus was then dissected away from the anterior abdominal wall using sharp dissection with Pelayo scissors and the bladder flap was able to be developed using sharp and blunt dissection. The Enseal device was then used to serially clamp, cauterize and ligate the broad ligament down to the level of the cervix on the right side of the uterus. Hemostasis was noted. Attention was then turned to the left side of the uterus and the broad ligament was again clamped, cauterized and ligated using the Enseal vessel sealing device. This was continued to the level of the cervix. The vaginal cuff edges were then grasped and the curved Kristan clamps were used to come across the vagina just past the cervix. The uterus and cervix were then cut away and handed off as specimen. The vaginal cuff was then closed using [id number] sutures of 0-Monocryl. There was noted to be bleeding from the lateral edges of the vaginal cuff. Halrcu-ys-cobum sutures were placed in these areas for hemostasis. There was also noted to be bleeding from the ovary where the fallopian tube had been dissected off and this was cauterized and was hemostatic. There was also noted to be some bleeding from the posterior peritoneal edge of the vaginal cuff and this was cauterized using Bovie cautery. The pelvis was then packed with lap sponges and pressure applied for 3 minutes and after removal of the lap sponges it was noted to be overall hemostatic. There was some additional bleeding from the tissue over the bladder and FloSeal was placed for hemostasis. All the pedicles were inspected at this time and were found to be hemostatic. The fascia was then closed with 0-PDS suture in a running fashion. The subcutaneous tissue was reapproximated using 0 Monocryl The skin incision was then closed with 4-0 Monocryl suture. The patient was then extubated and taken out of the operating room in stable condition. Sponge, lap and needle counts were correct at the end of the case. There were no complications other than conversion from laparoscopic to abdominal hysterectomy. Diagnosis: Stroke: No - Discharge Data Discharge Date: 10/04/18 Discharge Disposition: Home, Self-Care 01 Condition: Good - Patient Summary/Data Operative Procedure(s) Performed: Total abdominal hysterectomy with bilateral salpingectomy following conversion from diagnostic laparoscopy Complications: None other than conversion of laparoscopic to open procedure Consults: None Hospital Course: Patient presented to the hospital for laparoscopic-assisted vaginal hysterectomy with bilateral salpingectomy. She was taken to the operating room and had a diagnostic laparoscopy which showed significant amount of adhesions and decision was made to convert to open total abdominal hysterectomy. The procedure was completed without significant difficulties. Please see the operative report for full details. Patient was admitted to the floor for recovery after the procedure. She was given Percocets and Dilaudid for pain control. She had a CBC while she was in the PACU that came back with a hemoglobin of 11.8. This was done at 1425. She had a repeat CBC done at 1999 that returned with a hemoglobin of 11.7. This felt that she was not having any significant internal bleeding at this time and was given Toradol and Lovenox. The Lovenox was due to her significant history with history of DVT in . She continued to do well throughout the night and was able to tolerate a small amount of liquid. In the morning of postoperative day #1 her CBC came back with a hemoglobin of 11.3. She had been up and walking around without difficulty. Her Stover catheter was removed and the morning of postoperative day #1 and she was able to void without difficulty after its removal. She was able to tolerate regular diet without any difficulty. She was having some nausea but it was overall tolerable. She was passing flatus. She was afebrile. She continued to ambulate without difficulty after removal of the catheter. She was given her second dose of Lovenox on postop day #1 and instructed on how to do the injections at home. Patient desired to be discharged home in the early afternoon of postoperative day #1. She will follow up in 2 weeks or earlier as needed. - Patient Instructions Diet: Regular Diet as Tolerated Activity: Apply Ice, As Tolerated, No Lifting Over 10 Pounds Driving: Do Not Drive (while on narcotic medications) Showering/Bathing: May Shower Wound/Incision Care: Keep Operative Site/Wound Site Clean and Dry Notify Provider of: Fever, Increased Pain, Swelling and Redness, Drainage, Nausea and/or Vomiting - Discharge Plan *PRESCRIPTION DRUG MONITORING PROGRAM REVIEWED*: Yes *COPY OF PRESCRIPTION DRUG MONITORING REPORT IN PATIENT SOFIA: Yes Prescriptions/Med Rec: Acetaminophen/oxyCODONE [Percocet 325-5 MG] 1 - 2 tab PO Q6H PRN #30 tablet PRN Reason: Pain Enoxaparin [Lovenox] 40 mg SUBCUT DAILY #9 syringe Ondansetron [Zofran ODT] 4 mg PO Q4H PRN #30 tab.dis PRN Reason: Nausea/Vomiting Home Medications: Home Meds Losartan [Cozaar] 50 mg PO DAILY 11/16/17 [History] Metoprolol Succinate 25 mg PO DAILY 11/16/17 [History] EPINEPHrine [Epipen] 1 dose IM ONETIME PRN 10/02/18 [History] Acetaminophen/oxyCODONE [Percocet 325-5 MG] 1 - 2 tab PO Q6H PRN #30 tablet [Rx] Docusate Sodium [Colace] 100 mg PO BID cap 10/04/18 [Rx] Enoxaparin [Lovenox] 40 mg SUBCUT DAILY #9 syringe 10/04/18 [Rx] Ibuprofen [Motrin] 600 mg PO Q6H PRN tablet 10/04/18 [Rx] Ondansetron [Zofran ODT] 4 mg PO Q4H PRN #30 tab.dis 10/04/18 [Rx] Patient Handouts: Hysteroscopy, Care After, Enoxaparin injection, How and Where to Give Subcutaneous Enoxaparin Injections, Steps to Quit Smoking Referrals: Sim Hart MD [Physician] - (Follow up in 2 weeks for routine post- operative appointment or earlier as needed.) - Discharge Summary/Plan Comment DC Time >30 min.: No - Patient Data Vitals - Most Recent: Last Vital Signs Temp 37.7 C 10/04/18 03:52 Pulse 72 10/04/18 09:01 Resp 14 10/04/18 03:52 BP 150/63 H 10/04/18 09:01 Pulse Ox 94 L 10/04/18 03:52 Weight - Most Recent: 103.419 kg I&O - Last 24 hours: Intake & Output 10/03/18 10/04/18 10/04/18 22:59 06:59 14:59 Intake Total 4025 1300 Output Total 1100 550 Balance 2925 750 Lab Results - Last 24 hrs: Laboratory Results - last 24 hr 10/03/18 10/03/18 10/04/18 Range/Units 14:25 20:00 05:27 WBC 17.39 H 15.49 H 12.12 H (3.98-10.04) K/mm3 RBC 4.15 4.09 4.01 (3.98-5.22) M/mm3 Hgb 11.8 11.7 11.3 (11.2-15.7) gm/L Hct 35.2 34.6 34.3 (34.1-44.9) % MCV 84.8 84.6 85.5 (79.4-94.8) fl MCH 28.4 28.6 28.2 (25.6-32.2) pg MCHC 33.5 33.8 32.9 (32.2-35.5) g/dl RDW Std Deviation 43.4 43.1 44.0 (36.4-46.3) fL Plt Count 205 196 199 (182-369) K/mm3 MPV 10.3 10.0 10.6 (9.4-12.3) fl Neut % (Auto) 83.8 H 79.6 H 74.3 H (34.0-71.1) % Lymph % (Auto) 10.8 L 12.7 L 16.2 L (19.3-51.7) % [place] % (Auto) 4.6 L 7.0 7.4 (4.7-12.5) % Eos % (Auto) 0.4 L 0.3 L 1.5 (0.7-5.8) Baso % (Auto) 0.1 0.1 0.2 (0.1-1.2) % Neut # (Auto) 14.57 H 12.35 H 9.01 H (1.56-6.13) K/mm3 Lymph # (Auto) 1.88 1.96 1.96 (1.18-3.74) K/mm3 [place] # (Auto) 0.80 H 1.09 H 0.90 H (0.24-0.36) K/mm3 Eos # (Auto) 0.07 0.04 0.18 (0.04-0.36) K/mm3 Baso # (Auto) 0.02 0.01 0.02 (0.01-0.08) K/mm3 Med Orders - Current: Current Medications Docusate Sodium (Colace) 100 mg PO BID [facility] Last Admin: 10/04/18 09:02 Dose: 100 mg Hydromorphone HCl (Dilaudid) 0.2 mg IVPUSH Q2H PRN PRN Reason: Pain (severe 7-10) Last Admin: 10/03/18 23:03 Dose: 0.2 mg Ibuprofen (Motrin) 600 mg PO Q6H PRN PRN Reason: Pain (moderate 4-6) Losartan Potassium (Cozaar) 25 mg PO DAILY [facility] Last Admin: 10/04/18 09:01 Dose: 25 mg Metoprolol Succinate (Toprol Xl) 50 mg PO DAILY [facility] Last Admin: 10/04/18 09:01 Dose: 50 mg Ondansetron HCl (Zofran) 4 mg IVPUSH Q4H PRN PRN Reason: Nausea/Vomiting Last Admin: 10/03/18 21:26 Dose: 4 mg Oxycodone/Acetaminophen (Percocet 325-5 Mg) 1 tab PO Q6H PRN PRN Reason: Pain (moderate 4-6) Oxycodone/Acetaminophen (Percocet 325-5 Mg) 2 tab PO Q6H PRN PRN Reason: Pain (severe 7-10) Last Admin: 10/04/18 11:27 Dose: 2 tab Discontinued Medications Albuterol (Proventil Hfa) Confirm Administered Dose 6.7 gm INH .STK-MED ONE Stop: 10/03/18 13:27 Bupivacaine HCl (Marcaine 0.5%) Confirm Administered Dose 30 ml .ROUTE .STK-MED ONE Stop: 10/03/18 11:00 Last Admin: 10/03/18 12:00 Dose: 9 ml Cefazolin Sodium (Ancef) Confirm Administered Dose 2 gm .ROUTE .STK-MED ONE Stop: 10/03/18 09:46 Enoxaparin Sodium (Lovenox) 40 mg SUBCUT ONETIME ONE Stop: 10/03/18 20:43 Last Admin: 10/03/18 21:13 Dose: 40 mg Ephedrine Sulfate (Ephedrine In Ns) Confirm Administered Dose 25 mg .ROUTE .STK- MED ONE Stop: 10/03/18 12:49 Fentanyl (Sublimaze) Confirm Administered Dose 250 mcg .ROUTE .STK-MED ONE Stop: 10/03/18 09:46 Fentanyl (Sublimaze) 50 mcg IVPUSH Q5M PRN PRN Reason: Pain Stop: 10/03/18 18:00 Last Admin: 10/03/18 14:45 Dose: 50 mcg Fentanyl (Sublimaze) Confirm Administered Dose 100 mcg .ROUTE .STK-MED ONE Stop: 10/03/18 13:07 Gentamicin Sulfate (Gentamicin) 0 mg IV .Pharmacy to Dose JUSTINE Stop: 10/03/18 10:00 Haloperidol Lactate (Haldol) 1 mg IVPUSH ONETIME ONE Stop: 10/03/18 14:30 Last Admin: 10/03/18 20:48 Dose: Not Given Hydromorphone HCl (Dilaudid) Confirm Administered Dose 0.5 mg .ROUTE .STK-MED ONE Stop: 10/03/18 12:41 Hydromorphone HCl (Dilaudid) Confirm Administered Dose 0.5 mg .ROUTE .STK-MED ONE Stop: 10/03/18 12:41 Hydromorphone HCl (Dilaudid) 0.5 mg IVPUSH Q15M PRN PRN Reason: severe pain Stop: 10/03/18 16:00 Last Admin: 10/03/18 15:13 Dose: 0.5 mg Hydromorphone HCl (Dilaudid) Confirm Administered Dose 0.5 mg .ROUTE .STK-MED ONE Stop: 10/03/18 13:47 Hydromorphone HCl (Dilaudid) Confirm Administered Dose 0.5 mg .ROUTE .STK-MED ONE Stop: 10/03/18 13:59 Hydromorphone HCl (Dilaudid) 0.2 mg IVPUSH Q2H PRN PRN Reason: Pain (severe 7-10) Lactated Ringer's (Ringers, Lactated) 1,000 mls @ 125 mls/hr IV ASDIRECTED [facility] Last Admin: 10/03/18 15:31 Dose: 125 mls/hr Metronidazole 500 mg/ Premix 100 mls @ 100 mls/hr IV ONETIME ONE Stop: 10/03/18 09:59 Last Admin: 10/03/18 09:55 Dose: 100 mls/hr Gentamicin Sulfate 384 mg/ (Dextrose/Water) 109.6 mls @ 109.6 mls/hr IV ONETIME ONE Stop: 10/03/18 10:29 Last Admin: 10/03/18 09:56 Dose: 109.6 mls/hr Lidocaine HCl (Xylocaine-Mpf 1%) Confirm Administered Dose 4 mls @ as directed .ROUTE .STK-MED ONE Stop: 10/03/18 09:46 Lactated Ringer's (Ringers, Lactated) Confirm Administered Dose 1,000 mls @ as directed .ROUTE .STK-MED ONE Stop: 10/03/18 09:46 Lactated Ringer's (Ringers, Lactated) Confirm Administered Dose 1,000 mls @ as directed .ROUTE .STK-MED ONE Stop: 10/03/18 12:48 Ibuprofen (Motrin) 600 mg PO Q6H PRN PRN Reason: Pain (moderate 4-6) Influenza Virus Vaccine (Pharmacy To Dose - Influenza Vaccine) 1 each IM ONETIME ONE Stop: 10/03/18 18:10 Influenza Virus Vaccine (Fluzone Quad [id number] Syringe) 60 mcg IM .ONCE ONE Stop: 10/04/18 09:01 Last Admin: 10/04/18 09:26 Dose: 60 mcg Ketamine HCl (Ketalar) Confirm Administered Dose 500 mg .ROUTE .STK-MED ONE Stop: 10/03/18 09:47 Ketorolac Tromethamine (Toradol) 30 mg IVPUSH Q6H [facility] Stop: 10/08/18 21:01 Last Admin: 10/04/18 03:45 Dose: 30 mg Lidocaine/Epinephrine (Xylocaine 1% With Epinephrine 1:100,000) Confirm Administered Dose 20 ml .ROUTE .STK-MED ONE Stop: 10/03/18 11:00 Lidocaine/Sodium Bicarbonate (Buffered Lidocaine 1% In Ns 8.4%) 0.25 ml IDERM ONETIME PRN PRN Reason: Prior to IV Start Last Admin: 10/03/18 10:00 Dose: 0.25 ml Lorazepam (Ativan) 0.5 mg IVPUSH ONETIME ONE Stop: 10/03/18 09:49 Last Admin: 10/03/18 09:55 Dose: 0.5 mg Metoclopramide HCl (Reglan) 10 mg IVPUSH ONETIME ONE Stop: 10/03/18 14:51 Last Admin: 10/03/18 15:00 Dose: 10 mg Midazolam HCl (Versed 1 Mg/Ml) Confirm Administered Dose 2 mg .ROUTE .STK-MED ONE Stop: 10/03/18 09:46 Ondansetron HCl (Zofran) Confirm Administered Dose 4 mg .ROUTE .STK-MED ONE Stop: 10/03/18 09:46 Ondansetron HCl (Zofran) 4 mg IVPUSH ONETIME PRN PRN Reason: Nausea/Vomiting Stop: 10/03/18 16:00 Phenylephrine HCl (Phenylephrine In Ns 100 Mcg/Ml) Confirm Administered Dose 2 mg .ROUTE .STK-MED ONE Stop: 10/03/18 12:49 Propofol (Diprivan 20 Ml) Confirm Administered Dose 400 mg .ROUTE .STK-MED ONE Stop: 10/03/18 09:46 Rocuronium [place] (Zemuron) Confirm Administered Dose 50 mg .ROUTE .STK-MED ONE Stop: 10/03/18 09:46 Rocuronium [place] (Zemuron) Confirm Administered Dose 50 mg .ROUTE .STK-MED ONE Stop: 10/03/18 12:41 Scopolamine (Transderm-Scop) 1.5 mg TOP ONETIME ONE Stop: 10/03/18 09:41 Last Admin: 10/03/18 09:55 Dose: 1.5 mg Sodium Chloride (Saline Flush) 10 ml FLUSH ASDIRECTED PRN PRN Reason: Keep Vein Open Sodium Chloride (Normal Saline) Confirm Administered Dose 50 ml .ROUTE .STK-MED ONE Stop: 10/03/18 11:00
[2018-10-04 16:29] VITALS: BP 118/59
== END 2018-10-04 14:15 | disposition home or self-care (01) | DRG 743 ==
LOC: JD.SDS 08:51 → JD.OB 14:05
PROVIDERS: ADMIT Obstetrics & Gynecology; ATTEND Obstetrics & Gynecology
PROC: 0UT70ZZ Resection of Bilateral Fallopian Tubes, Open Approach (ICD-10-PCS; principal; 2018-10-03)
PROC: 0UJD4ZZ Inspection of Uterus and Cervix, Percutaneous Endoscopic Approach (ICD-10-PCS; principal; 2018-10-03)
PROC: 0UT90ZZ Resection of Uterus, Open Approach (ICD-10-PCS; principal; 2018-10-03)
PROC: 0UT20ZZ Resection of Bilateral Ovaries, Open Approach (ICD-10-PCS; principal; 2018-10-03)
PROC: 3E02340 Introduction of Influenza Vaccine into Muscle, Percutaneous Approach (ICD-10-PCS; 2018-10-04)
DX: N93.9 Abnormal uterine and vaginal bleeding, unspecified (principal); N92.1 Excessive and frequent menstruation with irregular cycle; N94.6 Dysmenorrhea, unspecified; D55.0 Anemia due to glucose-6-phosphate dehydrogenase [G6PD] deficiency; K21.9 Gastro-esophageal reflux disease without esophagitis; I10 Essential (primary) hypertension; E78.5 Hyperlipidemia, unspecified; K02.9 Dental caries, unspecified; F17.210 Nicotine dependence, cigarettes, uncomplicated; G43.909 Migraine, unspecified, not intractable, without status migrainosus; F32.9 Major depressive disorder, single episode, unspecified; E78.00 Pure hypercholesterolemia, unspecified; M54.9 Dorsalgia, unspecified; G89.29 Other chronic pain; K66.0 Peritoneal adhesions (postprocedural) (postinfection); E66.9 Obesity, unspecified; Z68.37 Body mass index [BMI] 37.0-37.9, adult; Z88.0 Allergy status to penicillin; Z88.2 Allergy status to sulfonamides; Z88.5 Allergy status to narcotic agent; Z88.8 Allergy status to other drugs, medicaments and biological substances; Z85.6 Personal history of leukemia; Z88.1 Allergy status to other antibiotic agents; Z86.718 Personal history of other venous thrombosis and embolism; Z80.8 Family history of malignant neoplasm of other organs or systems; Z91.040 Latex allergy status; Z79.899 Other long term (current) drug therapy; Z87.442 Personal history of urinary calculi; Z90.49 Acquired absence of other specified parts of digestive tract; Z23 Encounter for immunization
CPT/HCPCS: 36415; 81001; 81025; 85025; 86850; 86900; 86901; 90686; A9270-GY; G0008; J0690; J1170; J1580; J1650; J1885; J2001; J2060; J2250; J2370; J2405; J2704; J2765; J3010; J3490; J7050; J7060; J7120

== ENCOUNTER 2018-11-05 22:37 | Emergency (ER) | payer MEDICAID ==
[2018-11-05 22:52] VITALS: BP 143/86
--- NOTE | 2018-11-05 23:50 | EDM.PDOC ---
ED HPI GENERAL MEDICAL PROBLEM - General Chief Complaint: Abdominal Pain Stated Complaint: ABDOMINAL PAIN, VOMITTING Time Seen by Provider: 11/05/18 23:39 Source of Information: Reports: Patient, RN Notes Reviewed History Limitations: Reports: No Limitations - History of Present Illness INITIAL COMMENTS - FREE TEXT/NARRATIVE: The patient states that she has had right lower abdominal pain for about one week. It is burning and stabbing in character. It is constant. It is made worse when she urinates, but she has not identified any other modifiers, such as moving or having a bowel movement. She denies urinary symptoms, such as dysuria , urinary urgency, or urinary frequency. She states that she has had a fever up to 101.6, today, along with nausea and vomiting today. No recent constipation or diarrhea. The patient states that she has been taking Tylenol, ibuprofen, and Aleve over the past week, without any relief of her symptoms. No prior medical evaluation for her symptoms. No prior similar symptoms. The patient states that she underwent a hysterectomy on 10/03/2018, per Dr. Hart. Medical records from that procedure indicate that the patient underwent a total abdominal hysterectomy with bilateral salpingectomy, leaving the ovaries intact. Numerous abdominal adhesions were incidentally noted. The patient states that she has an appointment to follow-up with Dr. Hart on 11/14/2018. The patient's PCP is Shayla Leong. Her Stand Up Comedian is Dr. Sim Hart. Her Urologist is Dr. Miguel Mcallister. Right Abdominal Pain Score (Numeric/FACES): 4 - Related Data Allergies Allergy/AdvReac Type Severity Reaction Status Date / Time ceftriaxone sodium Allergy Anaphylactic Verified 10/03/18 10:10 [From Rocephin] Shock cetirizine [From Zyrtec] Allergy Hives Verified 10/03/18 10:10 diphenhydramine HCl Allergy Anaphylactic Verified 10/03/18 10:10 [From Benadryl] Shock erythromycin base Allergy Anaphylactic Verified 10/03/18 10:10 [Erythromycin Base] Shock hydrocodone Allergy Anaphylactic Verified 10/03/18 10:10 Shock latex Allergy Hives Verified 10/03/18 10:10 Penicillins Allergy Anaphylactic Verified 10/03/18 10:10 Shock prednisone Allergy Anaphylactic Verified 10/03/18 10:10 Shock Sulfa (Sulfonamide Allergy Anaphylactic Verified 10/03/18 10:10 Antibiotics) Shock Home Meds: Home Meds Losartan [Cozaar] 50 mg PO DAILY 11/16/17 [History] Metoprolol Succinate 25 mg PO DAILY 11/16/17 [History] EPINEPHrine [Epipen] 1 dose IM ONETIME PRN 10/02/18 [History] Docusate Sodium [Colace] 100 mg PO BID cap 10/04/18 [Rx] Ibuprofen [Motrin] 600 mg PO Q6H PRN tablet 10/04/18 [Rx] Ondansetron [Zofran ODT] 4 mg PO Q4H PRN #30 tab.dis 10/04/18 [Rx] Past Medical History HEENT History: Reports: Otitis Media, 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 HEENT History: eustachian tube dysfunction Cardiovascular History: Reports: Blood Clots/VTE/DVT, Hypertension 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 History: Reports: Renal Calculus 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: Musculoskeletal History: Reports: Back Pain, Chronic, Fracture (left ankle) Neurological History: Reports: Migraines Endocrine/Metabolic History: Reports: Obesity/BMI 30+ Hematologic History: Reports: Anemia, Blood Transfusion(s) Oncologic (Cancer) History: Reports: Leukemia - Infectious Disease History Infectious Disease History: Reports: Chicken Pox - Past Surgical History HEENT Surgical History: Reports: Oral Surgery (wisdom teeth extraction) GI Surgical History: Reports: Appendectomy, Cholecystectomy Female Surgical History: Reports: Section (x 4), Hysterectomy ( partial, 10/03/2018), Tubal Ligation Musculoskeletal Surgical History: Reports: ORIF (left ankle) Other Musculoskeletal Surgeries/Procedures:: ankle surgery Social & Family History - Family History Family Medical History: Noncontributory HEENT: Reports: Glaucoma Cardiac: Reports: Hypertension, [place] Neurological: Reports: CVA Oncologic: Reports: Cervix - Tobacco Use Smoking Status *Q: Current Every Day Smoker Years of Tobacco use: 16 Packs/Tins Daily: 0.5 - Caffeine Use Caffeine Use: Reports: Soda Other Caffeine Use: a lot everyday - Recreational Drug Use Recreational Drug Use: No Drug Use in Last 12 Months: No - Living Situation & Occupation Living situation: Reports: Single, with Family (daughter + her boyfriend) Occupation: Employed ([employer]) ED ROS GENERAL - Review of Systems Review Of Systems: ROS reveals no pertinent complaints other than HPI. ED EXAM, GI/ABD - Physical Exam Exam: See Below Exam Limited By: No Limitations General Appearance: Alert, WD/WN, No Apparent Distress Eyes: Bilateral: Normal Appearance, EOMI Ears: Normal External Exam, Hearing Grossly Normal Nose: Normal Inspection Throat/Mouth: Normal Inspection, Normal Lips, Normal Voice, No Airway Compromise Head: Atraumatic, Normocephalic Neck: Normal Inspection, Full Range of Motion Respiratory/Chest: No Respiratory Distress, Lungs Clear, Normal Breath Sounds, No Accessory Muscle Use Cardiovascular: Normal Peripheral Pulses, Regular Rate, Rhythm, No Edema, No Gallop, No JVD, No Murmur, No Rub GI/Abdominal Exam: Normal Bowel Sounds, Soft, No Organomegaly, No Distention, No Abnormal Bruit, No Mass, Tender (Verna-incisional lower abdominal only. Nontender elsewhere.), Other (Obese) (Female) Exam: Deferred Rectal (Female) Exam: Deferred Back Exam: Normal Inspection, Full Range of Motion. No: CVA Tenderness (L), CVA Tenderness (R) Extremities: Normal Inspection, Normal Range of Motion, Normal Capillary Refill Neurological: Alert, Oriented, Normal Cognition, No Motor/Sensory Deficits Psychiatric: Normal Affect Skin Exam: Warm, Dry, Intact, Normal Color, No Rash Course - Vital Signs Last Recorded V/S: Last Vital Signs Temp 37.0 C 11/05/18 22:47 Pulse 78 11/05/18 22:47 Resp 15 11/05/18 22:47 BP 143/86 H 11/05/18 22:47 Pulse Ox 100 11/05/18 22:47 - Orders/Labs/Meds Labs: Laboratory Tests 11/05/18 Range/Units 23:57 Urine Color Yellow (Yellow) Urine Appearance Clear (Clear) Urine pH 5.5 (5.0-8.0) Ur Specific [place] 1.020 (1.005-1.030) Urine Protein 1+ H (Negative) Urine Glucose (UA) Negative (Negative) Urine Ketones Negative (Negative) Urine Occult Blood 1+ H (Negative) Urine Nitrite Negative (Negative) Urine Bilirubin Negative (Negative) Urine Urobilinogen 0.2 (0.2-1.0) Ur Leukocyte Esterase Negative (Negative) Urine RBC 0-5 (0-5) /hpf Urine WBC 0-5 (0-5) /hpf Ur Epithelial Cells Not Reportable Ur Squamous Epith Cells 5-10 H (0-5) /hpf Urine Bacteria Few (FEW) /hpf Urine Mucus Few (FEW) /hpf - Re-Assessments/Exams Free Text/Narrative Re-Assessment/Exam: 11/05/18 23:49 The etiology of the patient's right lower quadrant abdominal pain is not entirely clear. Since the patient has had an appendectomy, appendicitis is not on the differential. While she had a hysterectomy, her ovaries remain, so an ovarian cyst is still a possibility, and the fact that her pain is made a lot worse with urination, even though she does not have dysuria, these a UTI as a possibility. For tonight's purposes, I would like to check a urinalysis, to rule out a UTI, but if that is negative, I don't believe that a CT of the abdomen is indicated at this time, given the patient's history and physical examination. I would prefer that the patient have an outpatient pelvic ultrasound. 11/06/18 00:24 The patient's urinalysis is normal. As above, I am not recommending a CT scan of the abdomen and pelvis. I am recommending that the patient contact the office of Dr. Hart in the morning, to see if a pelvic ultrasound can be done either in his office or arranged as an outpatient. The patient is in agreement with this recommendation. I will discharge her home. Departure - Departure Time of Disposition: 00:25 Disposition: Home, Self-Care 01 Condition: Fair Clinical Impression: Right lower quadrant abdominal pain of unknown etiology - Discharge Information *PRESCRIPTION DRUG MONITORING PROGRAM REVIEWED*: Not Applicable *COPY OF PRESCRIPTION DRUG MONITORING REPORT IN PATIENT SOFIA: Not Applicable Referrals: Sim Hart MD [Physician] - Shayla Leong PA [Physician Operations Manager] - Miguel Mcallister MD [Physician] - Forms: ED Department Discharge Additional Instructions: You were seen in the emergency room for lower right abdominal pain for the past week, made worse with urination, along with a fever, nausea, and vomiting today. Workup in the ER included a urinalysis, which was normal. You do not have a urinary tract infection. The cause of your abdominal pain is not immediately clear, however, a CT scan of your abdomen and pelvis was not recommended, as it was felt that it would not likely find the cause, but pose the risk of unnecessary radiation. We recommend that you contact the office of your Stand Up Comedian, Dr. Hart, in the morning, to see if they can perform a pelvic ultrasound in their office, or arrange for an outpatient pelvic ultrasound. If any other problems, please do not hesitate to return to the ER.
== END 2018-11-06 00:34 | disposition home or self-care (01) ==
LOC: JD.ED 22:37
DX: R10.31 Right lower quadrant pain (principal); I10 Essential (primary) hypertension; F17.210 Nicotine dependence, cigarettes, uncomplicated; Z88.8 Allergy status to other drugs, medicaments and biological substances; Z88.5 Allergy status to narcotic agent; Z91.040 Latex allergy status; Z88.0 Allergy status to penicillin; Z88.2 Allergy status to sulfonamides; Z79.899 Other long term (current) drug therapy
CPT/HCPCS: 81001; 99282; 99284

== ENCOUNTER 2019-06-04 16:23 | Emergency (ER) | payer MEDICAID ==
[2019-06-04 16:41] VITALS: BP 161/105; PULSE 87
[2019-06-04] MEDS ORDERED: Ondansetron 4 MG/2 ML SDV IVPUSH ONE ×2 (17:05→18:32)
[2019-06-04] MEDS ORDERED: HYDROmorphone 1 MG/ML Syringe IVPUSH ONE (17:05)
[2019-06-04] MEDS ORDERED: Dextrose 5%-0.9% NaCl 1,000 ML IV SCH (17:15)
--- NOTE | 2019-06-04 17:15 | EDM.PDOC ---
ED HPI GENERAL MEDICAL PROBLEM - General Chief Complaint: Neck Problem Stated Complaint: NECK INJURY FROM FALL Time Seen by Provider: 06/04/19 17:10 Source of Information: Reports: Patient History Limitations: Reports: No Limitations - History of Present Illness INITIAL COMMENTS - FREE TEXT/NARRATIVE: 34-year-old female presents to the ED complaining of severe cervical neck pain. Patient states that about 0500 hrs. this morning she got up and stepped on a dog collar at the top of the stairs. This caused her feet to go out from underneath her and caused her to fall very hard on the top one of the stair well. She landed on her upper back and across her lower cervical spine. She states it days to refer. Of time but she did not lose consciousness. She was able to go back to bed but upon arising she finds that she has severe pain in her neck particularly with any attempt to look to the right side. Associated headache with nausea and vomiting. Has pain in her upper back as well. She can walk okay and has no injuries below the waist. Onset: Today Onset Date: 06/04/19 Onset Time: 05:00 Duration: Hour(s):, Getting Worse Location: Reports: Head (Headache with nausea and vomiting), Neck, Back (Upper thoracic spine) Quality: Reports: Ache, Throbbing Severity: Moderate (8 out of 10) Improves with: Reports: Rest Worsens with: Reports: Movement Context: Reports: Trauma (Slipped and fell on the upper aspect of the stairwell. ). Denies: Activity, Exercise (Any attempt to move her head or neck causes severe pain in her lower cervical spine.), Lifting, Sick Contact Associated Symptoms: Reports: Headaches (Headache radiating in the back of her neck and rating up to the occipital scalp.), Loss of Appetite, Malaise, Nausea/ Vomiting. Denies: Confusion, Chest Pain, Cough, cough w sputum, Diaphoresis ( Nausea and vomiting of bilious material), Fever/Chills Treatments OUTSIDE COLLECTOR: Reports: Other (see below) (Nothing will stay down.) Bilateral Neck Pain Score (Numeric/FACES): 7 - Related Data Allergies Allergy/AdvReac Type Severity Reaction Status Date / Time ceftriaxone sodium Allergy Anaphylactic Verified 06/04/19 16:41 [From Rocephin] Shock cetirizine [From Zyrtec] Allergy Hives Verified 06/04/19 16:41 diphenhydramine HCl Allergy Anaphylactic Verified 06/04/19 16:41 [From Benadryl] Shock erythromycin base Allergy Anaphylactic Verified 06/04/19 16:41 [Erythromycin Base] Shock hydrocodone Allergy Anaphylactic Verified 06/04/19 16:41 Shock latex Allergy Hives Verified 06/04/19 16:41 Penicillins Allergy Anaphylactic Verified 06/04/19 16:41 Shock prednisone Allergy Anaphylactic Verified 06/04/19 16:41 Shock Sulfa (Sulfonamide Allergy Anaphylactic Verified 06/04/19 16:41 Antibiotics) Shock Home Meds: Home Meds Losartan [Cozaar] 50 mg PO DAILY 11/16/17 [History] Metoprolol Succinate 25 mg PO DAILY 11/16/17 [History] EPINEPHrine [Epipen] 1 dose IM ONETIME PRN 10/02/18 [History] Ibuprofen [Motrin] 600 mg PO Q6H PRN tablet 10/04/18 [Rx] Diclofenac Sodium [Voltaren] 75 mg PO BIDMEALS #14 tab.cr 06/04/19 [Rx] Ondansetron [Zofran] 4 mg BUCCAL Q6H PRN #15 tab 06/04/19 [Rx] Orphenadrine [Norflex] 100 mg PO BID PRN #12 tab 06/04/19 [Rx] oxyCODONE HCl/Acetaminophen [Percocet 5-325 mg Tablet] 1 - 2 each PO Q4H PRN # 24 tablet 06/04/19 [Rx] Past Medical History - Past Health History Medical/Surgical History: Denies Medical/Surgical History HEENT History: Reports: Otitis Media, 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 HEENT History: eustachian tube dysfunction Cardiovascular History: Reports: Blood Clots/VTE/DVT, Hypertension Other Cardiovascular History: chest pain Respiratory History: Reports: Bronchitis, Recurrent, 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 Respiratory History: cough Gastrointestinal History: Reports: GERD 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 History: Reports: Renal Calculus 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: menorrhagia Musculoskeletal History: Reports: Back Pain, Chronic, Fracture Other Musculoskeletal History: right knee pain Neurological History: Reports: Migraines Psychiatric History: Reports: Depression Endocrine/Metabolic History: Reports: Obesity/BMI 30+ Hematologic History: Reports: Anemia, Blood Transfusion(s) Immunologic History: Reports: None Oncologic (Cancer) History: Reports: Leukemia Dermatologic History: Reports: None - Infectious Disease History Infectious Disease History: Reports: Chicken Pox - Past Surgical History Head Surgeries/Procedures: Reports: None HEENT Surgical History: Reports: Oral Surgery Respiratory Surgical History: Reports: None GI Surgical History: Reports: Appendectomy, Cholecystectomy Female Surgical History: Reports: Section, Hysterectomy, Tubal Ligation Musculoskeletal Surgical History: Reports: ORIF Other Musculoskeletal Surgeries/Procedures:: ankle surgery Dermatological Surgical History: Reports: None Social & Family History - Family History Family Medical History: Noncontributory HEENT: Reports: Glaucoma Cardiac: Reports: Hypertension, SD Neurological: Reports: CVA Oncologic: Reports: Cervix - Tobacco Use Smoking Status *Q: Current Every Day Smoker Years of Tobacco use: 15 Packs/Tins Daily: 0.5 Used Tobacco, but Quit: No - Caffeine Use Caffeine Use: Reports: Soda, Tea Other Caffeine Use: a lot everyday - Recreational Drug Use Recreational Drug Use: Yes Recreational Drug Type: Reports: Marijuana/Hashish Recreational Drug Use Frequency: Socially - Living Situation & Occupation Living situation: Reports: Single, with Family (daughter + her boyfriend) Occupation: Employed ([employer], [employer]) ED ROS GENERAL - Review of Systems Review Of Systems: See Below Constitutional: Reports: Decreased Appetite. Denies: Fever, Chills, Malaise, Weakness, Fatigue, Weight Loss HEENT: Reports: No Symptoms Respiratory: Reports: No Symptoms Cardiovascular: Reports: No Symptoms Endocrine: Reports: Fatigue GI/Abdominal: Reports: Nausea, Vomiting (twice this morning.) : Reports: No Symptoms Musculoskeletal: Reports: Neck Pain, Back Pain (Upper thoracic back pain) Skin: Reports: No Symptoms Neurological: Reports: Dizziness, Headache. Denies: Numbness, Tingling, Difficulty Walking Psychiatric: Reports: Anxiety Hematologic/Lymphatic: Reports: No Symptoms Immunologic: Reports: No Symptoms ED EXAM, UPPER BACK/NECK PAIN - Physical Exam Exam: See Below Exam Limited By: No Limitations General Appearance: Alert, WD/WN, Moderate Distress, Other (She is holding her neck very stiff. C-collar placed after gentle palpation of the cervical spine. Vital signs are stable other than blood pressure elevated at 161/105.) Eye Exam: Bilateral Eye: Normal Inspection, PERRL Ears Exam: Normal TMs Nose Exam: Normal Inspection Throat/Mouth Exam: Normal Inspection, Normal Lips, Normal Oropharynx, Other (no injuries to her tongue or dentition.) Head Exam: Atraumatic, Normocephalic, Other (No palpable scalp hematomas or lacerations.) Neck Exam: Stiff Neck, Tenderness (Tenderness bilaterally worse on the right side with paraspinal muscle spasm from C4-C7. Not ask her to attempt any range of motion. C-collar was placed in the ED.) Nexus Criteria: Posterior, Midline Cervical Tenderness. No: Evidence of Intoxication, Altered Level of Consciousness, Focal Neurological Deficit, Painful Distraction Injuries Cardiovascular/Respiratory: Regular Rate, Rhythm, Normal Peripheral Pulses, Other (Patient is very hypertensive suspicious for significant pain.) GI/Abdominal: Normal Bowel Sounds, Soft, Non-Tender, No Organomegaly, No Abnormal Bruit, No Mass, Pelvis Stable, Other (Mildly obese.) Back Exam: Other ( is marked tenderness to the upper thoracic spine particularly T1-T4. There were no evidence of bruises contusions or abrasions to the neck or upper back.). 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 As Tested, No Motor/Sensory Deficits, Alert, Normal Mood/Affect, Oriented x 3 Psychiatric: Anxious Skin Exam: Normal Color, Warm/Dry (Mildly anxious.) Course - Vital Signs Last Recorded V/S: Last Vital Signs Temp 37.1 C 06/04/19 16:36 Pulse 87 06/04/19 16:36 Resp 20 06/04/19 16:36 BP 161/105 H 06/04/19 16:36 Pulse Ox 98 06/04/19 16:36 - Orders/Labs/Meds Orders: Active Orders 24 hr Category Date Time Status Head wo Cont [CT] Stat Exams 06/04/19 17:06 Taken Meds: Medications Discontinued Medications Generic Name Dose Route Start Last Admin Trade Name Freq PRN Reason Stop Dose Admin Hydromorphone HCl 1 mg 06/04/19 17:05 06/04/19 18:28 Dilaudid IVPUSH 06/04/19 17:06 Not Given ONETIME ONE Hydromorphone HCl 1 mg 06/04/19 18:25 06/04/19 18:27 Dilaudid IM 06/04/19 18:26 1 mg ONETIME ONE Administration Dextrose/Sodium Chloride 1,000 mls @ 500 mls/hr 06/04/19 17:15 Dextrose 5%-Normal Saline IV ASDIRECTED JUSTINE Ondansetron HCl 4 mg 06/04/19 17:05 06/04/19 18:28 Zofran IVPUSH 06/04/19 17:06 Not Given ONETIME ONE Ondansetron HCl 4 mg 06/04/19 18:32 06/04/19 18:28 Zofran IVPUSH 06/04/19 18:33 4 mg ONETIME ONE Administration - Radiology Interpretation Free Text/Narrative:: 34-year-old female presents to the ED for evaluation of neck injury. She states at 0500 hrs. this morning in her own home she got up and slipped on a dog collar left at the top of the stairwell. This caused her feet to report from underneath her and caused her to fall hard landing on her upper back and neck on the upper rung of the stairwell. She did hit the back of her head but did not lose consciousness. He did manage to go back to bed as she didn't think she was hurt all that bad. Upon arousing this morning she found her neck to be extremely sore with very limited ability to move without severe pain in the right side of her neck. Then she developed a severe headache with nausea and vomiting. Exam reveals tenderness throughout the right side of the cervical spine. Particular in the midline as well. Is also pain in the upper thoracic spine teeth 1 to T4 area without evidence of abrasions or contusions. She was immediately placed in a c-collar in the ED. Plan she will have CT head, CT cervical spine and thoracic spine. IV will be D5 normal saline at open. Given Dilaudid 1 mg IV and Zofran 4 mg IV for headache and nausea relief. - Re-Assessments/Exams Free Text/Narrative Re-Assessment/Exam: 06/04/19 18:08 CT head is within normal limits showing no intracranial bleeding or mass effect. No skull fractures identified. 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 I do not see any obvious fractures. There are is also horizontal lines across cervical 34 and 5 which I believe is vascular in origin. I will await the radiologist's report in this regard. She has lost her normal lordotic curvature in the spine is quite straight. There is slight calcification in the nuchal ligaments but no acute fractures. Thoracic spine which reveals no fractures. There are degenerative changes in the upper thoracic spine but I believe at C3-4 and 5 with anterior osteophyte formation. There is also some calcification in the ligaments anteriorly and posteriorly. No fractures identified. 06/04/19 18:41 Radiologist agrees with me. He could not identify any abnormalities within the CT had. Cervical spine identified loss of lordotic curvature but no signs of any fractures. Similarly thoracic spine reveals degenerative changes from thoracic 3,4 and 5 with osteophyte formation at the anterior aspects. C-collar removed by me at 1836. Patient did not get an IV started and did not receive IV Dilaudid or Zofran as ordered as the patient was taken immediately to CT after my examination. She will now receive these medications intramuscularly. Patient will be discharged to home with Percocet tabs 5/325 one or 2 every 4-6 hours needed for pain relief. Voltaren 75 mg twice a day for the next 7 days. Norflex 100 mg every 8 hours as needed for relief of muscle spasm. Zofran 4 mg every 4-6 hours necessary for relief of nausea vomiting. Departure - Departure Time of Disposition: 18:43 Disposition: Home, Self-Care 01 Condition: Fair Clinical Impression: Fall as cause of accidental injury at home as place of occurrence Qualifiers: Encounter type: initial encounter Qualified Code(s): W19.XXXA - Unspecified fall, initial encounter Closed head injury without concussion Qualifiers: Encounter type: initial encounter Qualified Code(s): S09.90XA - Unspecified injury of head, initial encounter Cervical myofascial strain Qualifiers: Encounter type: initial encounter Qualified Code(s): S16.1XXA - Strain of muscle, fascia and tendon at neck level, initial encounter Contusion of upper back Qualifiers: Encounter type: initial encounter Laterality: unspecified laterality Qualified Code(s): S20.229A - Contusion of unspecified back wall of thorax, initial encounter - Discharge Information *PRESCRIPTION DRUG MONITORING PROGRAM REVIEWED*: No *COPY OF PRESCRIPTION DRUG MONITORING REPORT IN PATIENT SOFIA: No Prescriptions: Diclofenac Sodium [Voltaren] 75 mg PO BIDMEALS #14 tab.cr Ondansetron [Zofran] 4 mg BUCCAL Q6H PRN #15 tab PRN Reason: nausea or vomiting Orphenadrine [Norflex] 100 mg PO BID PRN #12 tab PRN Reason: Muscle spasms oxyCODONE HCl/Acetaminophen [Percocet 5-325 mg Tablet] 1 - 2 each PO Q4H PRN # 24 tablet PRN Reason: pain relief. Instructions: Contusion, [id number], Head Injury, Adult, [id number] Referrals: PCP,None [Primary Care Provider] - Forms: ED Department Discharge Additional Instructions: Evaluation the emergency room today in regards to a fall at home that occurred at 5:00 this morning. This resulted in your landing very hard on the upper lung of the stairwell across her upper back and neck. It is likely that you've the back of her head fairly hard on the stairs as well. Was no reported loss of consciousness. Marked tenderness on the right side of your cervical spine with very limited range of motion due to muscle spasm. So pain and tenderness appreciated in the upper thoracic spine particularily in the midline. CT head proved to be within normal limits showing no intracranial mass or bleeding. No skull fractures. CT cervical spine reveals loss of the normal lordotic curvature with spasm of the muscles causing the neck to straight note. No fractures were identified. There is minimal degenerative changes appreciated in the lower cervical spine. In the upper thoracic spine no fractures were identified. There is evidence of degenerative arthritic changes developing in the mid upper thoracic spine bones. The much more stiff and sore tomorrow and the next day as muscles spasm will worsen due to sigmoid bleeding into the muscles and surrounding ligaments of the neck. It is likely going to be 7-10 days before your you have return of normal function. If you are not per low back to normal in 10 days' time he should follow-up with your personal care physician to arrange physiotherapy for your neck. Treatment at home is anti- inflammatory Voltaren 75 mg twice daily with food for 7 days. This reduce pain and inflammation in the Osman's and ligaments. Norflex 100 mg every 12 hours as needed for relief of severe muscle spasm for the next 5-6 days. Percocet tabs 5/3/25 milligrams one or 2 every 4-6 hours with Zofran 4 mg sublingually every 4-6 hours to prevent nausea vomiting. Ice pack to the neck one half hour out of every 4 hours for the next 2 days to reduce bleeding into the muscle tissues. After this may apply hot packs to the area one half hour out of every 4 hours. - My Orders Last 24 Hours: My Active Orders 06/04/19 17:06 Head wo Cont [CT] Stat - Assessment/Plan Last 24 Hours: My Active Orders 06/04/19 17:06 Head wo Cont [CT] Stat
[2019-06-04] MEDS ORDERED: HYDROmorphone 1 MG/ML Syringe IM ONE (18:25)
--- NOTE | 2019-06-04 18:25 | CT ---
CT thoracic spine Technique: Multiple axial sections through the thoracic spine were obtained. Multiple reconstructed axial and coronal images were reviewed. Comparison: No prior thoracic spine imaging. Findings: Prominent anterior osteophytes are seen at C3-C4, C4-C5 and C5-C6. Lesser osteophytes are seen within other portions of the thoracic spine. No posterior spurring is identified. No bony central or bony neural foraminal stenosis is seen. No fracture is identified. No abnormal subluxation is seen. Impression: 1. Mild degenerative change. Nothing acute is appreciated on CT study of the thoracic spine. Diagnostic code #2
--- NOTE | 2019-06-04 18:29 | CT ---
CT cervical spine Technique: Multiple axial sections through the cervical spine were obtained. Study was obtained from above C1 inferiorly to the bottom of T3. Reconstructed sagittal and coronal images were reviewed. Comparison: Prior cervical spine study 12/14/17. Findings: Vertebral body heights and disc spaces are maintained. Slightly abnormal cervical curvature is seen. Small bony density is seen off the right side posteriorly at C5-C6. This is well-corticated and appears to be a small dystrophic calcification projecting into the right neural foramina. This is seen on prior study and therefore felt to be nonacute an incidental. No acute fracture is identified. No bony central or bony neural foraminal stenosis is seen. Anterior osteophytes are noted at T3-T4. Impression: 1. Slightly abnormal cervical curvature which may be due to muscle spasm or positional. 2. Other findings which are believed to be incidental. Nothing acute is seen. Diagnostic code #2
--- NOTE | 2019-06-05 06:50 | CT ---
Head CT Technique: Multiple axial sections through the brain were obtained. Intravenous contrast was not utilized. Comparison: Prior head CT study of 12/14/15. Findings: Ventricles along with basal cisterns and sulci over the convexities are within normal limits for the patient's age. No abnormal parenchymal densities are seen. No evidence of intracranial hemorrhage. No midline shift or mass effect is seen. Bone window settings were reviewed which show the mastoid sinuses to appear clear. Visualized paranasal sinuses show nothing acute. No acute calvarial abnormality is appreciated. Impression: 1. Nothing acute is appreciated on noncontrast head CT study. 2. No change is appreciated from prior exam. Diagnostic code #1
== END 2019-06-04 19:15 | disposition home or self-care (01) ==
LOC: JD.ED 16:23
DX: S09.90XA Unspecified injury of head, initial encounter (principal); S16.1XXA Strain of muscle, fascia and tendon at neck level, initial encounter; S20.229A Contusion of unspecified back wall of thorax, initial encounter; I10 Essential (primary) hypertension; E66.9 Obesity, unspecified; Z88.1 Allergy status to other antibiotic agents; Z88.8 Allergy status to other drugs, medicaments and biological substances; Z88.0 Allergy status to penicillin; Z88.2 Allergy status to sulfonamides; Z79.899 Other long term (current) drug therapy; W10.9XXA Fall (on) (from) unspecified stairs and steps, initial encounter; Y92.009 Unspecified place in unspecified non-institutional (private) residence as the place of occurrence of the external cause
CPT/HCPCS: 70450; 72125; 72128; 96372; 99283; J1170; J2405

== ENCOUNTER 2019-09-09 06:20 | Emergency (ER) | payer MEDICAID ==
[2019-09-09 06:35] VITALS: BP 160/99; PULSE 94
--- NOTE | 2019-09-09 07:04 | EDM.PDOC ---
ED HPI GENERAL MEDICAL PROBLEM - General Chief Complaint: Gastrointestinal Problem Stated Complaint: STOMACH PAIN Time Seen by Provider: 09/09/19 07:04 - History of Present Illness INITIAL COMMENTS - FREE TEXT/NARRATIVE: 34-year-old female comes emergency room with abdominal pain. Patient states his pain is been going on for about 3 days now she is had loose stools for the last 3 days. She has been vomiting for 5 times today then some in the past couple of days.. No fevers or chills. She has had a hysterectomy in the past as well as an appendectomy and a cholecystectomy. She has had kidney stones in the past and a history of leukemia. She is treated for hyperlipidemia and takes metoprolol. Right Upper Abdominal Pain Score (Numeric/FACES): 6 - Related Data Allergies Allergy/AdvReac Type Severity Reaction Status Date / Time ceftriaxone sodium Allergy Anaphylactic Verified 09/09/19 06:35 [From Rocephin] Shock cetirizine [From Zyrtec] Allergy Hives Verified 09/09/19 06:35 diphenhydramine HCl Allergy Anaphylactic Verified 09/09/19 06:35 [From Benadryl] Shock erythromycin base Allergy Anaphylactic Verified 09/09/19 06:35 [Erythromycin Base] Shock hydrocodone Allergy Anaphylactic Verified 09/09/19 06:35 Shock latex Allergy Hives Verified 09/09/19 06:35 Penicillins Allergy Anaphylactic Verified 09/09/19 06:35 Shock prednisone Allergy Anaphylactic Verified 09/09/19 06:35 Shock Sulfa (Sulfonamide Allergy Anaphylactic Verified 09/09/19 06:35 Antibiotics) Shock Home Meds: Home Meds Metoprolol Succinate 50 mg PO DAILY 11/16/17 [History] EPINEPHrine [Epipen] 1 dose IM ONETIME PRN 10/02/18 [History] Ondansetron [Zofran ODT] 4 mg PO Q6H PRN #12 tab.dis 09/09/19 [Rx] Potassium Chloride 10 meq PO Q12H #6 tablet.er 09/09/19 [Rx] atorvaSTATin [Lipitor] 10 mg PO DAILY 09/09/19 [History] Past Medical History - Past Health History Medical/Surgical History: Denies Medical/Surgical History HEENT History: Reports: Otitis Media, 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 HEENT History: eustachian tube dysfunction Cardiovascular History: Reports: Blood Clots/VTE/DVT, Hypertension Other Cardiovascular History: chest pain Respiratory History: Reports: Bronchitis, Recurrent, 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 Respiratory History: cough Gastrointestinal History: Reports: GERD 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 History: Reports: Renal Calculus 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 BORDER PATROL OFFICER History: menorrhagia Musculoskeletal History: Reports: Back Pain, Chronic, Fracture Other Musculoskeletal History: right knee pain Neurological History: Reports: Migraines Psychiatric History: Reports: Depression Endocrine/Metabolic History: Reports: Obesity/BMI 30+ Hematologic History: Reports: Anemia, Blood Transfusion(s) Immunologic History: Reports: None Oncologic (Cancer) History: Reports: Leukemia Dermatologic History: Reports: None - Infectious Disease History Infectious Disease History: Reports: Chicken Pox - Past Surgical History Head Surgeries/Procedures: Reports: None HEENT Surgical History: Reports: Oral Surgery Respiratory Surgical History: Reports: None GI Surgical History: Reports: Appendectomy, Cholecystectomy Female Surgical History: Reports: Section, Hysterectomy, Tubal Ligation Musculoskeletal Surgical History: Reports: ORIF Other Musculoskeletal Surgeries/Procedures:: ankle surgery Dermatological Surgical History: Reports: None Social & Family History - Family History Family Medical History: Noncontributory HEENT: Reports: Glaucoma Cardiac: Reports: Hypertension, [place] Neurological: Reports: CVA Oncologic: Reports: Cervix - Tobacco Use Smoking Status *Q: Current Every Day Smoker Years of Tobacco use: 15 Packs/Tins Daily: 0.5 - Caffeine Use Caffeine Use: Reports: Coffee, Energy Drinks, Soda Other Caffeine Use: a lot everyday - Recreational Drug Use Recreational Drug Use: No - Living Situation & Occupation Living situation: Reports: Single, with Family (daughter + her boyfriend) Occupation: Employed ([employer]) ED ROS GENERAL - Review of Systems Review Of Systems: See Below Constitutional: Reports: No Symptoms HEENT: Reports: No Symptoms Respiratory: Reports: No Symptoms Cardiovascular: Reports: No Symptoms GI/Abdominal: Reports: Abdominal Pain, Diarrhea, Nausea, Vomiting. Denies: Constipation : Reports: No Symptoms Neurological: Reports: No Symptoms ED EXAM, GI/ABD - Physical Exam Exam: See Below Exam Limited By: No Limitations General Appearance: Alert, No Apparent Distress Head: Atraumatic, Normocephalic Neck: Normal Inspection, Supple, Non-Tender, Full Range of Motion. No: Lymphadenopathy (L), Lymphadenopathy (R) Respiratory/Chest: No Respiratory Distress, Lungs Clear, Normal Breath Sounds Cardiovascular: Regular Rate, Rhythm, No Edema, No Murmur GI/Abdominal Exam: Normal Bowel Sounds, Soft, Tender (Vague right-sided discomfort with palpation no rigidity rebound or guarding. She has significant obesity she has no pain in the lower right quadrant suprapubic area or left abdomen no pain in the epigastric area). No: Guarding, Rigid, Rebound Back Exam: Normal Inspection. No: CVA Tenderness (L), CVA Tenderness (R) Course - Vital Signs Last Recorded V/S: Last Vital Signs Temp 36.1 C 09/09/19 06:34 Pulse 94 09/09/19 06:34 Resp 15 09/09/19 06:34 BP 160/99 H 09/09/19 06:34 Pulse Ox 100 09/09/19 06:34 - Orders/Labs/Meds Orders: Active Orders 24 hr Category Date Time Status CBC WITH AUTO DIFF [HEME] Stat Lab 09/09/19 07:35 Results Labs: Laboratory Tests 09/09/19 09/09/19 09/09/19 Range/Units 07:30 07:35 07:35 WBC 14.44 H (3.98-10.04) K/mm3 RBC 4.72 (3.98-5.22) M/mm3 Hgb 13.9 D (11.2-15.7) gm/dl Hct 40.2 (34.1-44.9) % MCV 85.2 (79.4-94.8) fl MCH 29.4 (25.6-32.2) pg MCHC 34.6 (32.2-35.5) g/dl RDW Std Deviation 42.7 (36.4-46.3) fL Plt Count 245 (182-369) K/mm3 MPV 10.1 (9.4-12.3) fl Neut % (Auto) 65.3 (34.0-71.1) % Lymph % (Auto) 25.1 (19.3-51.7) % Luce % (Auto) 7.2 (4.7-12.5) % Eos % (Auto) 1.8 (0.7-5.8) Baso % (Auto) 0.2 (0.1-1.2) % Neut # (Auto) 9.42 H (1.56-6.13) K/mm3 Lymph # (Auto) 3.63 (1.18-3.74) K/mm3 Luce # (Auto) 1.04 H (0.24-0.36) K/mm3 Eos # (Auto) 0.26 (0.04-0.36) K/mm3 Baso # (Auto) 0.03 (0.01-0.08) K/mm3 Sodium 139 (136-145) mEq/L Potassium 3.2 L (3.5-5.1) mEq/L Chloride 103 (98-107) mEq/L Carbon Dioxide 26 (21-32) mEq/L Anion Gap 13.2 (5-15) BUN 14 (7-18) mg/dL Creatinine 0.9 (0.55-1.02) mg/dL Est Cr Clr Drug Dosing 80.90 mL/min Estimated GFR (MDRD) > 60 (>60) mL/min BUN/Creatinine Ratio 15.6 (14-18) Glucose 120 H (74-106) mg/dL Calcium 8.9 (8.5-10.1) mg/dL Total Bilirubin 0.8 (0.2-1.0) mg/dL AST 22 (15-37) U/L ALT 53 (14-59) U/L Alkaline Phosphatase 62 (46-116) U/L Total Protein 7.5 (6.4-8.2) g/dl Albumin 3.7 (3.4-5.0) g/dl Globulin 3.8 gm/dL Albumin/Globulin Ratio 1.0 (1-2) Urine Color Yellow (Yellow) Urine Appearance Clear (Clear) Urine pH 6.0 (5.0-8.0) Ur Specific Allen > or = 1.030 (1.005-1.030) Urine Protein 2+ H (Negative) Urine Glucose (UA) Negative (Negative) Urine Ketones Negative (Negative) Urine Occult Blood 1+ H (Negative) Urine Nitrite Negative (Negative) Urine Bilirubin Negative (Negative) Urine Urobilinogen 1.0 (0.2-1.0) Ur Leukocyte Esterase Negative (Negative) Urine RBC 0-5 (0-5) /hpf Urine WBC 0-5 (0-5) /hpf Ur Epithelial Cells 0-5 (0-5) /hpf Urine Bacteria Few (FEW) /hpf Urine Mucus Few (FEW) /hpf Meds: Medications Discontinued Medications Generic Name Dose Route Start Last Admin Trade Name Soniya PRN Reason Stop Dose Admin Lactated Ringer's 1,000 mls @ 999 mls/hr 09/09/19 07:24 09/09/19 07:46 Ringers, Lactated IV 09/09/19 08:24 999 mls/hr .BOLUS ONE Administration Ondansetron HCl 4 mg 09/09/19 07:24 09/09/19 07:47 Zofran IVPUSH 09/09/19 07:25 4 mg ONETIME ONE Administration - Re-Assessments/Exams Free Text/Narrative Re-Assessment/Exam: 09/09/19 07:46 KUB and upright is done showing no acute abdominal changes gas pattern is normal she is got a fair amount of stool in the right colon no air under the diaphragm. 09/09/19 08:27 Mild increase in her white count. And her potassium is a little low we will discharge with a potassium discussed the pros and cons of CT imaging she would like to hold off on this which I think is very reasonable at this point. We will discharge her with Zofran and potassium. She voices understanding to return in 24 hours if not better sooner if getting worse Departure - Departure Time of Disposition: 08:28 Disposition: Home, Self-Care 01 Clinical Impression: Abdominal pain of unknown etiology - Discharge Information Prescriptions: Ondansetron [Zofran ODT] 4 mg PO Q6H PRN #12 tab.dis PRN Reason: Nausea/Vomiting Potassium Chloride 10 meq PO Q12H #6 tablet.er Referrals: Ayden Ibarra PA-C [Primary Care Provider] - Forms: ED Department Discharge Additional Instructions: Return to the emergency room room with any questions problems or worsening symptoms. Return in 24 hours if not better sooner if getting worse. Take the medications as directed. Follow-up in the clinic on Tuesday if you are not better. Sepsis Event Note - Evaluation Sepsis Screening Result: No Definite Risk - Focused Exam Vital Signs: Vital Signs Temp Pulse Resp BP Pulse Ox 09/09/19 06:34 36.1 C 94 15 160/99 H 100 Date Exam was Performed: 09/09/19 Time Exam was Performed: 08:26 - My Orders Last 24 Hours: My Active Orders 09/09/19 07:35 CBC WITH AUTO DIFF [HEME] Stat - Assessment/Plan Last 24 Hours: My Active Orders 09/09/19 07:35 CBC WITH AUTO DIFF [HEME] Stat
[2019-09-09] MEDS ORDERED: Ondansetron 4 MG/2 ML SDV IVPUSH ONE (07:24)
[2019-09-09] MEDS ORDERED: Lactated Ringers 1,000 ML IV ONE (07:24)
--- NOTE | 2019-09-09 08:00 | CR ---
Abdomen: Supine and upright views of the abdomen were obtained. Comparison: Prior abdominal x-ray of 01/26/18. Surgical clips are seen within the abdomen. Oval density is noted within the left abdomen believed to represent ingested capsule. Mild increased stool within the colon is noted. Bowel gas pattern is otherwise unremarkable. No free air is seen. Bony structures are unremarkable. Degenerative change is noted within both hips. Impression: 1. Findings as noted above. Nothing acute is identified. Diagnostic code #2 This report was dictated in [place] Standard Time
== END 2019-09-09 08:42 | disposition home or self-care (01) ==
LOC: JD.ED 06:20
DX: R10.11 Right upper quadrant pain (principal); R11.2 Nausea with vomiting, unspecified; E78.5 Hyperlipidemia, unspecified; I10 Essential (primary) hypertension; F17.210 Nicotine dependence, cigarettes, uncomplicated; E66.9 Obesity, unspecified; Z68.35 Body mass index [BMI] 35.0-35.9, adult; Z88.1 Allergy status to other antibiotic agents; Z88.8 Allergy status to other drugs, medicaments and biological substances; Z88.5 Allergy status to narcotic agent; Z88.0 Allergy status to penicillin; Z88.2 Allergy status to sulfonamides; Z91.040 Latex allergy status; Z90.49 Acquired absence of other specified parts of digestive tract; Z90.89 Acquired absence of other organs; Z90.710 Acquired absence of both cervix and uterus; Z79.899 Other long term (current) drug therapy
CPT/HCPCS: 36415; 74019; 80053; 81001; 85025; 87804; 96361; 96374; 99284; J2405; J7120

== ENCOUNTER 2020-06-16 20:57 | Emergency (ER) | payer MEDICAID ==
[2020-06-16 21:17] VITALS: BP 169/103; PULSE 83
--- NOTE | 2020-06-16 22:26 | EDM.PDOC ---
ED HPI GENERAL MEDICAL PROBLEM - General Chief Complaint: Headache Stated Complaint: MIGRAINE Time Seen by Provider: 06/16/20 22:26 - History of Present Illness INITIAL COMMENTS - FREE TEXT/NARRATIVE: 35-year-old female presents the emergency room with a headache. Patient has recurrent headaches she believes migraine. This headache started this morning more generalized started in the base of her neck skull and neck radiated forward. She has photophobia significant nausea. She has not been able to eat or drink all day however she did get through work. Patient has had intermittent headaches in the past. Headache Pain Score (Numeric/FACES): 6 - Related Data Allergies Allergy/AdvReac Type Severity Reaction Status Date / Time ceftriaxone sodium Allergy Anaphylactic Verified 06/16/20 21:17 [From Rocephin] Shock cetirizine [From Zyrtec] Allergy Hives Verified 06/16/20 21:17 diphenhydramine HCl Allergy Anaphylactic Verified 06/16/20 21:17 [From Benadryl] Shock erythromycin base Allergy Anaphylactic Verified 06/16/20 21:17 [Erythromycin Base] Shock hydrocodone Allergy Anaphylactic Verified 06/16/20 21:17 Shock latex Allergy Hives Verified 06/16/20 21:17 Penicillins Allergy Anaphylactic Verified 06/16/20 21:17 Shock prednisone Allergy Anaphylactic Verified 06/16/20 21:17 Shock Sulfa (Sulfonamide Allergy Anaphylactic Verified 06/16/20 21:17 Antibiotics) Shock Home Meds: Home Meds Metoprolol Succinate 50 mg PO DAILY 11/16/17 [History] EPINEPHrine [Epipen] 1 dose IM ONETIME PRN 10/02/18 [History] Ondansetron [Zofran ODT] 4 mg PO Q6H PRN #12 tab.dis 09/09/19 [Rx] Potassium Chloride 10 meq PO Q12H #6 tablet.er 09/09/19 [Rx] atorvaSTATin [Lipitor] 10 mg PO DAILY 09/09/19 [History] Past Medical History - Past Health History Medical/Surgical History: Denies Medical/Surgical History HEENT History: Reports: Otitis Media, 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 HEENT History: eustachian tube dysfunction Cardiovascular History: Reports: Blood Clots/VTE/DVT, Hypertension Other Cardiovascular History: chest pain Respiratory History: Reports: Bronchitis, Recurrent, 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 Respiratory History: cough Gastrointestinal History: Reports: GERD 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 History: Reports: Renal Calculus 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 INTERNSHIP 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: Reports: Other AGRONOMY INTERNSHIP History: menorrhagia Musculoskeletal History: Reports: Back Pain, Chronic, Fracture Other Musculoskeletal History: right knee pain Neurological History: Reports: Migraines Psychiatric History: Reports: Depression Endocrine/Metabolic History: Reports: Obesity/BMI 30+ Hematologic History: Reports: Anemia, Blood Transfusion(s) Immunologic History: Reports: None Oncologic (Cancer) History: Reports: Leukemia Dermatologic History: Reports: None - Infectious Disease History Infectious Disease History: Reports: Novel Coronavirus - Past Surgical History Head Surgeries/Procedures: Reports: None HEENT Surgical History: Reports: Oral Surgery Respiratory Surgical History: Reports: None GI Surgical History: Reports: Appendectomy, Cholecystectomy Female Surgical History: Reports: Section, Hysterectomy, Tubal Ligation Musculoskeletal Surgical History: Reports: ORIF Other Musculoskeletal Surgeries/Procedures:: ankle surgery Dermatological Surgical History: Reports: None Social & Family History - Family History Family Medical History: Noncontributory HEENT: Reports: Glaucoma Cardiac: Reports: Hypertension, [place] Neurological: Reports: CVA Oncologic: Reports: Cervix - Tobacco Use Tobacco Use Status *Q: Current Every Day Tobacco User Years of Tobacco use: 10 Packs/Tins Daily: 0.5 - Caffeine Use Caffeine Use: Reports: Coffee, Energy Drinks, Soda Other Caffeine Use: a lot everyday - Living Situation & Occupation Living situation: Reports: Single, with Family (daughter + her boyfriend) Occupation: Employed ([employer]) ED ROS GENERAL - Review of Systems Review Of Systems: See Below Constitutional: Reports: No Symptoms HEENT: Reports: No Symptoms Respiratory: Reports: No Symptoms Cardiovascular: Reports: No Symptoms Endocrine: Reports: No Symptoms GI/Abdominal: Reports: Nausea. Denies: Abdominal Pain, Constipation, Diarrhea, Vomiting : Reports: No Symptoms Musculoskeletal: Reports: No Symptoms Skin: Reports: No Symptoms Neurological: Reports: No Symptoms Psychiatric: Reports: No Symptoms - Physical Exam Exam: See Below Exam Limited By: No Limitations General Appearance: Alert, No Apparent Distress Eye Exam: Bilateral Eye: EOMI, Normal Inspection, PERRL Ears: Normal External Exam, Normal Canal, Hearing Grossly Normal, Normal TMs Nose: Normal Inspection, Normal Mucosa, No Blood Head Exam: Atraumatic, Normocephalic Neck: Normal Inspection, Supple, Non-Tender, Full Range of Motion, Other (Is a fair amount of muscle spasm in the paraspinous muscles. Worse at the insertion of the skull). No: Lymphadenopathy (L), Lymphadenopathy (R) Cardiovascular: Normal Peripheral Pulses, Regular Rate, Rhythm, No Edema GI/Abdominal: Normal Bowel Sounds, Soft, Non-Tender (Female) Exam: Normal External Exam, Normal Speculum Exam Neuro Exam (Abbreviated): Alert, Oriented, Normal Cognition, Other (Nerves II through XII grossly intact all muscle groups the upper and lower extremities are equal and appropriate bilaterally deep tendon reflexes at the brachial radialis are equal and appropriate bilaterally. Cerebellar testing is entirely within normal limits. Normal neurologic exam) Back Exam: Normal Inspection. No: CVA Tenderness (L), CVA Tenderness (R) Extremities: Normal Inspection, No Pedal Edema Psychiatric: Normal Affect, Normal Mood Course - Vital Signs Last Recorded V/S: Last Vital Signs Temp 36.9 C 06/16/20 21:15 Pulse 83 06/16/20 21:15 Resp 16 06/16/20 21:15 BP 169/103 H 06/16/20 21:15 Pulse Ox 99 06/16/20 21:15 - Orders/Labs/Meds Meds: Medications Discontinued Medications Generic Name Dose Route Start Last Admin Trade Name Soniya PRN Reason Stop Dose Admin Famotidine 40 mg 06/16/20 22:51 06/16/20 23:23 Pepcid IVPUSH 06/16/20 22:52 40 mg ONETIME ONE Administration Lactated Ringer's 1,000 mls @ 999 mls/hr 06/16/20 22:51 06/16/20 23:27 Ringers, Lactated IV 06/16/20 23:51 999 mls/hr .BOLUS ONE Administration Prochlorperazine Edisylate 10 52 mls @ 150 mls/hr 06/16/20 22:51 06/16/20 23:27 mg/ Sodium Chloride IV 06/16/20 23:11 150 mls/hr ONETIME ONE Administration Lorazepam 1 mg 06/16/20 22:51 06/16/20 23:25 Ativan IVPUSH 06/16/20 22:52 1 mg ONETIME ONE Administration - Re-Assessments/Exams Free Text/Narrative Re-Assessment/Exam: 06/17/20 00:10 Saved a liter of LR 10 mg of Compazine milligram of Ativan and 40 mg of famotidine she is much better we will discharge her home at this point Departure - Departure Time of Disposition: 00:11 Disposition: Home, Self-Care 01 Clinical Impression: Cephalgia Qualifiers: Headache type: unspecified Headache chronicity pattern: acute headache Intractability: not intractable Qualified Code(s): R51 - Headache - Discharge Information Referrals: Ayden Ibarra PA-C [Primary Care Provider] - Forms: ED Department Discharge Additional Instructions: Return to the emergency room with any questions problems or worsening symptoms. Go straight home have someone drive you home and go straight to bed. Sepsis Event Note (ED) - Evaluation Sepsis Screening Result: No Definite Risk - Focused Exam Vital Signs: Vital Signs Temp Pulse Resp BP Pulse Ox 06/16/20 21:15 36.9 C 83 16 169/103 H 99
[2020-06-16] MEDS ORDERED: Lactated Ringers 1,000 ML IV ONE (22:51)
[2020-06-16] MEDS ORDERED: Prochlorperazine 10 MG in Sodium Chloride 0.9% 50 ML IV ONE (22:51)
[2020-06-16] MEDS ORDERED: Famotidine 20 MG/2 ML SDV IVPUSH ONE (22:51)
[2020-06-16] MEDS ORDERED: LORazepam 2 MG/ML SDV IVPUSH ONE (22:51)
== END 2020-06-17 01:00 | disposition home or self-care (01) ==
LOC: JD.ED 20:57
DX: R51.9 Headache, unspecified (principal); F17.210 Nicotine dependence, cigarettes, uncomplicated; E66.9 Obesity, unspecified; Z68.34 Body mass index [BMI] 34.0-34.9, adult; Z79.899 Other long term (current) drug therapy; Z88.1 Allergy status to other antibiotic agents; Z88.5 Allergy status to narcotic agent; Z91.040 Latex allergy status; Z88.0 Allergy status to penicillin; Z88.8 Allergy status to other drugs, medicaments and biological substances; Z88.2 Allergy status to sulfonamides
CPT/HCPCS: 96365; 96375; 99283; J0780; J2060; J3490; J7120

== ENCOUNTER 2020-06-18 18:55 | Emergency (ER) | payer MEDICAID ==
[2020-06-18 19:16] VITALS: BP 167/105; PULSE 88
--- NOTE | 2020-06-18 19:41 | EDM.PDOC ---
ED HPI GENERAL MEDICAL PROBLEM - General Chief Complaint: Chest Pain Stated Complaint: HEADACHE/CHEST PAIN Time Seen by Provider: 06/18/20 19:12 Source of Information: Reports: Patient History Limitations: Reports: No Limitations - History of Present Illness INITIAL COMMENTS - FREE TEXT/NARRATIVE: Ms. Segal is a pleasant 35-year-old woman who now presents the ED with chest pain. She states that she developed retrosternal chest pain, wheezing in character, a pain, not a discomfort, around 11:00 this morning. She states that it is constant, but progressively getting worse. It is made worse if she coughs or is upright, made slightly better if she is supine. She states that the pain radiates down her left upper extremity. She reports associated nausea and diaphoresis, although no dyspnea or sense of impending doom. She states that she had similar symptoms about 2 years ago, was evaluated in this ED then admitted for 3 days. She states that a number of tests were performed, with no abnormal results, other than the finding of elevated blood pressure. The patient states that she took Excedrin twice, along with 2 doses of ibuprofen, with her most recent dose around 18:00 this evening. She states that neither the Excedrin nor the ibuprofen had any effect on her symptoms whatsoever. When I examined the patient, I found that her sternum was very tender to even mild palpation. She reported that she ran into a metal counter while at work yesterday, bruising her sternum. Here in the ED, the patient's initial BP is found to be modestly elevated at 167/105, otherwise, she is hemodynamically stable, afebrile, saturating 98% on room air. The patient reports 3 days of a headache, otherwise, prior to this morning, the patient denies having a recent fever, chills, sore throat, ear pain, nasal or sinus congestion, cough, dyspnea, chest pain, palpitations, nausea, vomiting, constipation, diarrhea, abdominal pain, urinary symptoms, recent weight gain or weight loss, recent bloody bowel movements or black bowel movements, recent joint aches, headaches, or rashes. The patient's PCP is AR Mcallister. Her Social Work Faculty Member is Dr. Sim Hart. Her Urologist is Dr. Miguel Mcallister. She did not receive an influenza vaccine this season, but agreed to receive one here tonight. Treatments TAPE COATER: Reports: Aspirin, NSAIDS Other Treatments TAPE COATER: 1800 Chest Pain Score (Numeric/FACES): 7 - Related Data Allergies Allergy/AdvReac Type Severity Reaction Status Date / Time ceftriaxone sodium Allergy Anaphylactic Verified 06/18/20 19:10 [From Rocephin] Shock cetirizine [From Zyrtec] Allergy Hives Verified 06/18/20 19:10 diphenhydramine HCl Allergy Anaphylactic Verified 06/18/20 19:10 [From Benadryl] Shock erythromycin base Allergy Anaphylactic Verified 06/18/20 19:10 [Erythromycin Base] Shock hydrocodone Allergy Anaphylactic Verified 06/18/20 19:10 Shock latex Allergy Hives Verified 06/18/20 19:10 Penicillins Allergy Anaphylactic Verified 06/18/20 19:10 Shock prednisone Allergy Anaphylactic Verified 06/18/20 19:10 Shock Sulfa (Sulfonamide Allergy Anaphylactic Verified 06/18/20 19:10 Antibiotics) Shock Home Meds: Home Meds Metoprolol Succinate 50 mg PO DAILY 11/16/17 [History] EPINEPHrine [Epipen] 1 dose IM ONETIME PRN 10/02/18 [History] atorvaSTATin [Lipitor] 10 mg PO DAILY 09/09/19 [History] Losartan [Cozaar] 12.5 mg PO DAILY 06/18/20 [History] Past Medical History HEENT History: Reports: Other (See Below) (Eustachian tube dysfunction) Cardiovascular History: Reports: Blood Clots/VTE/DVT, Hypertension Gastrointestinal History: Reports: GERD, Other (See Below) (Gilbert syndrome) 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 History: Reports: Renal Calculus Musculoskeletal History: Reports: Fracture (left ankle) Neurological History: Reports: Migraines Psychiatric History: Reports: Depression (untreated) Endocrine/Metabolic History: Reports: Obesity/BMI 30+ Hematologic History: Reports: Blood Transfusion(s) Oncologic (Cancer) History: Reports: Leukemia (x 2, s/p CTx) - Past Surgical History HEENT Surgical History: Reports: Oral Surgery (dental extractions) GI Surgical History: Reports: Appendectomy, Cholecystectomy (around 2005) Female Surgical History: Reports: Section (x 4), Hysterectomy (partial, 10/03/2018), Tubal Ligation Musculoskeletal Surgical History: Reports: ORIF (left ankle) Social & Family History - Family History Family Medical History: No Pertinent Family History HEENT: Reports: Glaucoma Cardiac: Reports: AK Neurological: Reports: CVA Oncologic: Reports: Cervix - Tobacco Use Tobacco Use Status *Q: Current Every Day Tobacco User Years of Tobacco use: 18 Packs/Tins Daily: 0.5 Packs/Tins Daily Comment: Down from 1 ppd - Caffeine Use Caffeine Use: Reports: Coffee, Energy Drinks, Soda, Tea Other Caffeine Use: a lot everyday - Alcohol Use Alcohol Use History: Yes Alcohol Use Frequency: Socially - Recreational Drug Use Recreational Drug Use: Yes Drug Use in Last 12 Months: Yes Recreational Drug Type: Reports: Marijuana/Hashish (last smoked 2018) - Living Situation & Occupation Living situation: Reports: Single, with Significant Other (Fianc), with Family (Daughter) Occupation: Employed ([employer]) ED ROS GENERAL - Review of Systems Review Of Systems: Comprehensive ROS is negative, except as noted in HPI. ED EXAM, GENERAL - Physical Exam Exam: See Below Exam Limited By: No Limitations General Appearance: Alert, WD/WN, No Apparent Distress Eye Exam: Bilateral Eye: EOMI, Normal Inspection Ears: Normal External Exam, Hearing Grossly Normal Nose: Normal Inspection Throat/Mouth: Normal Inspection, Normal Lips, Normal Voice, No Airway Compromise Head: Atraumatic, Normocephalic Neck: Normal Inspection, Full Range of Motion Respiratory/Chest: No Respiratory Distress, Lungs Clear, Normal Breath Sounds, No Accessory Muscle Use, Other (Sternum is tender to mild palpation, although the patient states that the character of her tenderness is different than the chest pain that brings her in) Cardiovascular: Normal Peripheral Pulses, Regular Rate, Rhythm, No Gallop, No JVD, No Murmur, No Rub Peripheral Pulses: 3+: Radial (L), Radial (R) GI/Abdominal: Normal Bowel Sounds, Soft, Non-Tender, No Organomegaly, No Distention, No Abnormal Bruit, No Mass Back Exam: Normal Inspection, Full Range of Motion, NT Extremities: Normal Inspection, Normal Range of Motion, No Pedal Edema, Normal Capillary Refill Neurological: Alert, Oriented, Normal Cognition, No Motor/Sensory Deficits Psychiatric: Normal Affect Skin Exam: Warm, Dry, Intact, Normal Color, No Rash #1 Interpretation EKG Date: 06/18/20 Time: 19:11 Rhythm: NSR Rate (Beats/Min): 84 [place]: Normal P-Wave: Present QRS: Other (Slightly late progression) ST-T: Normal QT: Normal Comparison: No Change (08/14/2018) Course - Vital Signs Last Recorded V/S: Last Vital Signs Temp 36.6 C 06/18/20 19:14 Pulse 88 06/18/20 19:14 Resp 16 06/18/20 19:14 BP 167/105 H 06/18/20 19:14 Pulse Ox 98 06/18/20 19:14 - Orders/Labs/Meds Orders: Active Orders 24 hr Category Date Time Status EKG Documentation Completion [RC] STAT Care 06/18/20 19:31 Active Influenza Vaccine Charge [RC] .DISCHARGE Care 06/18/20 19:33 Active Chest 2V [CR] Stat Exams 06/18/20 19:31 Taken Labs: Laboratory Tests 06/18/20 06/18/20 06/18/20 Range/Units 19:30 19:30 19:30 WBC 7.37 (3.98-10.04) K/mm3 RBC 4.90 (3.98-5.22) M/mm3 Hgb 14.3 (11.2-15.7) gm/dl Hct 41.5 (34.1-44.9) % MCV 84.7 (79.4-94.8) fl MCH 29.2 (25.6-32.2) pg MCHC 34.5 (32.2-35.5) g/dl RDW Std Deviation 40.6 (36.4-46.3) fL Plt Count 277 (182-369) K/mm3 MPV 10.1 (9.4-12.3) fl Neutrophils % (Manual) 65 H (40-60) % Band Neutrophils % 0 (0-10) % Lymphocytes % (Manual) 27 (20-40) % Atypical Lymphs % 0 % Monocytes % (Manual) 6 (2-10) % Eosinophils % (Manual) 2 (0.7-5.8) % Basophils % (Manual) 0 L (0.1-1.2) Platelet Estimate Adequate Plt Morphology Comment Normal RBC Morph Comment Normal D-Dimer, Quantitative 0.51 H (0.19-0.50) mg/L Sodium 140 (136-145) mEq/L Potassium 3.4 L (3.5-5.1) mEq/L Chloride 104 (98-107) mEq/L Carbon Dioxide 26 (21-32) mEq/L Anion Gap 13.4 (5-15) BUN 7 (7-18) mg/dL Creatinine 0.9 (0.55-1.02) mg/dL Est Cr Clr Drug Dosing 80.12 mL/min Estimated GFR (MDRD) > 60 (>60) mL/min BUN/Creatinine Ratio 7.8 L (14-18) Glucose 110 H (74-106) mg/dL Calcium 8.9 (8.5-10.1) mg/dL Total Bilirubin 1.4 H (0.2-1.0) mg/dL AST 41 H (15-37) U/L ALT 79 H (14-59) U/L Alkaline Phosphatase 66 (46-116) U/L Troponin I < 0.017 (0.00-0.056) ng/mL NT-Pro-B Natriuret Pep (0-125) pg/mL Total Protein 7.4 (6.4-8.2) g/dl Albumin 3.7 (3.4-5.0) g/dl Globulin 3.7 gm/dL Albumin/Globulin Ratio 1.0 (1-2) 06/18/20 Range/Units 19:30 WBC (3.98-10.04) K/mm3 RBC (3.98-5.22) M/mm3 Hgb (11.2-15.7) gm/dl Hct (34.1-44.9) % MCV (79.4-94.8) fl MCH (25.6-32.2) pg MCHC (32.2-35.5) g/dl RDW Std Deviation (36.4-46.3) fL Plt Count (182-369) K/mm3 MPV (9.4-12.3) fl Neutrophils % (Manual) (40-60) % Band Neutrophils % (0-10) % Lymphocytes % (Manual) (20-40) % Atypical Lymphs % % Monocytes % (Manual) (2-10) % Eosinophils % (Manual) (0.7-5.8) % Basophils % (Manual) (0.1-1.2) Platelet Estimate Plt Morphology Comment RBC Morph Comment D-Dimer, Quantitative (0.19-0.50) mg/L Sodium (136-145) mEq/L Potassium (3.5-5.1) mEq/L Chloride (98-107) mEq/L Carbon Dioxide (21-32) mEq/L Anion Gap (5-15) BUN (7-18) mg/dL Creatinine (0.55-1.02) mg/dL Est Cr Clr Drug Dosing mL/min Estimated GFR (MDRD) (>60) mL/min BUN/Creatinine Ratio (14-18) Glucose (74-106) mg/dL Calcium (8.5-10.1) mg/dL Total Bilirubin (0.2-1.0) mg/dL AST (15-37) U/L ALT (14-59) U/L Alkaline Phosphatase (46-116) U/L Troponin I (0.00-0.056) ng/mL NT-Pro-B Natriuret Pep 76 (0-125) pg/mL Total Protein (6.4-8.2) g/dl Albumin (3.4-5.0) g/dl Globulin gm/dL Albumin/Globulin Ratio (1-2) Meds: Medications Discontinued Medications Generic Name Dose Route Start Last Admin Trade Name Freq PRN Reason Stop Dose Admin Influenza Virus Vaccine 1 each 06/18/20 19:33 Pharmacy To Dose - Influenza Vaccine IM 06/18/20 19:34 ONETIME ONE Influenza Virus Vaccine 60 mcg 06/18/20 19:45 Fluzone Quad [id number] Syringe IM 06/18/20 19:46 .ONCE ONE - Re-Assessments/Exams Free Text/Narrative Re-Assessment/Exam: 06/18/20 19:34 As above, the patient developed central chest pain that radiates down her left upper extremity this morning, worse if she coughs or is upright, better if she is supine, with associated nausea and diaphoresis, following a central chest injury yesterday. Her sternum is noted to be tender to palpation, although she states that it is a different character. Her ECG, obtained at triage, shows no hemic changes. I have ordered a work-up that includes blood work and a chest x- ray. 06/18/20 20:07 2-view chest radiograph is read by vRjerri as "Normal chest x-ray." 06/18/20 20:32 The patient's CBC is unremarkable. Her CMP is remarkable for a potassium slightly depressed at 3.4, and a blood g lucose slightly elevated 110. Her TBil is slightly elevated at 1.4, with an AST/ALT mildly elevated at 41/79, respectively. The remainder of her CMP is unremarkable. Her troponin is undetectably low. Her BNP is within normal limits at 76. Her D-dimer is slightly elevated at 0.51. 06/18/20 20:58 Test results discussed with the patient. As above, today's work-up is completely unremarkable. There is no suggestion that her chest pain is cardiac in etiology. I suspect that it is musculoskeletal, likely related to the bruise that she sustained yesterday. I recommended ibuprofen and time. The patient did not seem super-satisfied with this recommendation - she may have been hoping for something stronger, however, I do not feel that opioids are appropriate for the treatment of simple contusions. The patient will be given an influenza vaccine prior to discharge. Departure - Departure Time of Disposition: 20:59 Disposition: Home, Self-Care 01 Condition: Good Clinical Impression: Chest wall contusion - Discharge Information *PRESCRIPTION DRUG MONITORING PROGRAM REVIEWED*: Not Applicable *COPY OF PRESCRIPTION DRUG MONITORING REPORT IN PATIENT SOFIA: Not Applicable Referrals: Ayden Ibarra PA-C [Primary Care Provider] - Sim Hart MD [Physician] - Miguel Mcallister MD [Ordering Only Provider] - Forms: ED Department Discharge Additional Instructions: You were seen in the emergency room for central chest pain, radiating down your left arm, since 11:00 this morning, after running into a metal counter at work yesterday. Work-up in the ER included blood work, a chest x-ray, and an ECG. Your entire work-up was unremarkable. You have not suffered a heart attack. You do not have a blood clot in your lungs. You do not have pneumonia. You do not have a collapsed lung. Based on your history, physical exam, and ER tests, the cause of your chest pain is most likely musculoskeletal, probably related to the bruise to your chest. We recommend that you continue to take [id number] ibuprofen, 3 tablets (600 mg) up to every 8 hours, with food, as needed for discomfort. If any other problems, please do not hesitate to return to the ER. You were given an influenza vaccine during your ER visit. Sepsis Event Note (ED) - Evaluation Sepsis Screening Result: No Definite Risk - Focused Exam Vital Signs: Vital Signs Temp Pulse Resp BP Pulse Ox 06/18/20 19:14 36.6 C 88 16 167/105 H 98 - My Orders Last 24 Hours: My Active Orders 06/18/20 19:31 EKG Documentation Completion [RC] STAT Chest 2V [CR] Stat 06/18/20 19:33 Influenza Vaccine Charge [RC] .DISCHARGE - Assessment/Plan Last 24 Hours: My Active Orders 06/18/20 19:31 EKG Documentation Completion [RC] STAT Chest 2V [CR] Stat 06/18/20 19:33 Influenza Vaccine Charge [RC] .DISCHARGE
[2020-06-18] MEDS ORDERED: FLU VACC QS2020-21(6MOS UP)/PF 60 MCG/0.5 ML SYRINGE IM ONE (19:45)
--- NOTE | 2020-06-19 08:40 | CR ---
PROCEDURE INFORMATION: Exam: XR Chest, 2 Views Exam date and time: 06/18/2020 7:40 PM Age: 35 years old Clinical indication: Chest pain; Type not specified TECHNIQUE: Imaging protocol: XR of the chest Views: 2 views. COMPARISON: CR Chest 1V Frontal 08/14/2018 4:03 AM FINDINGS: Lungs: The lungs are symmetric, well expanded and clear. Pleural space: There are no pleural effusions. There is no pneumothorax. Heart/Mediastinum: The heart size is normal as are the mediastinal and hilar contours. The pulmonary vessels are normal. Bones/joints: No acute osseous pathology is identified. IMPRESSION: Normal chest x-ray. Thank you for allowing us to participate in the care of your patient. Dictated and Authenticated by: Rose Mary Crystal MD 06/18/2020 9:03 PM Central Time ([place] & [place]) KAREY
== END 2020-06-18 21:19 | disposition home or self-care (01) ==
LOC: JD.ED 18:55
DX: S20.219A Contusion of unspecified front wall of thorax, initial encounter (principal); I10 Essential (primary) hypertension; K21.9 Gastro-esophageal reflux disease without esophagitis; F17.210 Nicotine dependence, cigarettes, uncomplicated; E66.9 Obesity, unspecified; Z68.33 Body mass index [BMI] 33.0-33.9, adult; Z23 Encounter for immunization; Z88.8 Allergy status to other drugs, medicaments and biological substances; Z88.1 Allergy status to other antibiotic agents; Z88.5 Allergy status to narcotic agent; Z91.040 Latex allergy status; Z88.0 Allergy status to penicillin; Z88.2 Allergy status to sulfonamides; Z79.899 Other long term (current) drug therapy; W22.8XXA Striking against or struck by other objects, initial encounter; Y92.89 Other specified places as the place of occurrence of the external cause; Y99.0 Civilian activity done for income or pay
CPT/HCPCS: 36415; 71046; 71046-26; 80053; 83880; 84484; 85007; 85027; 85379; 90686; 93005; 93010; 99283; 99284-25; G0008

== ENCOUNTER 2021-02-01 00:59 | Emergency (ER) | payer MEDICAID ==
[2021-02-01 01:13] VITALS: BP 185/116; PULSE 92
[2021-02-01] MEDS ORDERED: Promethazine 25 MG/ML SDV IM ONE (01:24)
--- NOTE | 2021-02-01 01:30 | EDM.PDOC ---
ED HPI GENERAL MEDICAL PROBLEM - General Chief Complaint: Neck Problem Stated Complaint: LEFT SIDE NECK & SHOULDER PAIN Time Seen by Provider: 02/01/21 01:12 Source of Information: Reports: Patient History Limitations: Reports: No Limitations - History of Present Illness INITIAL COMMENTS - FREE TEXT/NARRATIVE: 35-year-old female attends the ED in the wee hours of this morning due to persistent unrelenting pain in her left upper shoulder above her shoulder blade rating up to her neck to the base of her skull and down her left arm to her fingers. She states that yesterday morning she was simply doing her hair and had her left arm raised above her head when she felt something pop and tear with excruciating pain which she can localize very well to the medial aspect of the t rapezius muscle. She has been using [place] balm and other liniments on the area to help with pain. She is currently taking Lyrica 150 twice daily as well as meloxicam 15 mg daily and Flexeril 10 mg every 8 hours. With no relief. Unable to sleep at all due to the severity of the pain. Onset: Sudden Onset Date: 01/30/21 (Occurred well lifting her left arm above her head to do her hair.) Duration: Day(s):, Getting Worse Location: Reports: Neck (Pain is felt primarily at the base of her left side of her neck rating down the left upper extremity and up her neck to the base of her skull.) Quality: Reports: Ache, Throbbing, Other (Stabbing pain with movement of the left upper extremity.) Severity: Severe (9 out of 10) Improves with: Reports: Rest Worsens with: Reports: Movement (The attempt to move her) Context: Denies: Activity ( left arm forwards or abduction makes the pain much worse.), Exercise, Lifting, Sick Contact, Trauma, Other Associated Symptoms: Denies: No Other Symptoms, Confusion, Chest Pain, Cough, cough w sputum, Diaphoresis, Fever/Chills, Headaches, Loss of Appetite, Malaise, Nausea/Vomiting, Rash, Seizure, Shortness of Breath, Syncope, Weakness 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 Left Shoulder Pain Score (Numeric/FACES): 5 - Related Data Allergies Allergy/AdvReac Type Severity Reaction Status Date / Time ceftriaxone sodium Allergy Anaphylactic Verified 02/01/21 01:13 [From Rocephin] Shock cetirizine [From Zyrtec] Allergy Hives Verified 02/01/21 01:13 diphenhydramine HCl Allergy Anaphylactic Verified 02/01/21 01:13 [From Benadryl] Shock erythromycin base Allergy Anaphylactic Verified 02/01/21 01:13 [Erythromycin Base] Shock hydrocodone Allergy Anaphylactic Verified 02/01/21 01:13 Shock latex Allergy Hives Verified 02/01/21 01:13 Penicillins Allergy Anaphylactic Verified 02/01/21 01:13 Shock prednisone Allergy Anaphylactic Verified 02/01/21 01:13 Shock Sulfa (Sulfonamide Allergy Anaphylactic Verified 02/01/21 01:13 Antibiotics) Shock Home Meds: Home Meds Metoprolol Succinate 50 mg PO DAILY 11/16/17 [History] EPINEPHrine [Epipen] 1 dose IM ONETIME PRN 10/02/18 [History] atorvaSTATin [Lipitor] 10 mg PO DAILY 09/09/19 [History] Losartan [Cozaar] 12.5 mg PO DAILY 06/18/20 [History] oxyCODONE HCl/Acetaminophen [Percocet 5-325 mg Tablet] 1 - 2 each PO Q4H PRN #20 tablet 02/01/21 [Rx] Past Medical History - Past Health History Medical/Surgical History: Denies Medical/Surgical History HEENT History: Reports: 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 HEENT History: eustachian tube dysfunction Cardiovascular History: Reports: Blood Clots/VTE/DVT, Hypertension Other Cardiovascular History: chest pain Respiratory History: Reports: Bronchitis, Recurrent, 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 Respiratory History: cough Gastrointestinal History: Reports: GERD, Other (See Below) 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 History: Reports: Renal Calculus 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: menorrhagia Musculoskeletal History: Reports: Fracture Other Musculoskeletal History: right knee pain Neurological History: Reports: Migraines Psychiatric History: Reports: Depression Endocrine/Metabolic History: Reports: Obesity/BMI 30+ Hematologic History: Reports: Blood Transfusion(s) Immunologic History: Reports: None Oncologic (Cancer) History: Reports: Leukemia Dermatologic History: Reports: None - Infectious Disease History Infectious Disease History: Reports: None - Past Surgical History Head Surgeries/Procedures: Reports: None HEENT Surgical History: Reports: Oral Surgery Cardiovascular Surgical History: Reports: Vascular Surgery Respiratory Surgical History: Reports: None GI Surgical History: Reports: Appendectomy, Cholecystectomy Female Surgical History: Reports: Section, Hysterectomy, Tubal Ligation Other Female Surgeries/Procedures: c secx4 Endocrine Surgical History: Reports: None Neurological Surgical History: Reports: None Musculoskeletal Surgical History: Reports: ORIF Other Musculoskeletal Surgeries/Procedures:: ankle surgery Oncologic Surgical History: Reports: None Dermatological Surgical History: Reports: None Social & Family History - Family History Family Medical History: No Pertinent Family History HEENT: Reports: Glaucoma Cardiac: Reports: [place] Neurological: Reports: CVA Oncologic: Reports: Cervix - Tobacco Use Tobacco Use Status *Q: Current Every Day Tobacco User Years of Tobacco use: 15 Packs/Tins Daily: 0.5 - Caffeine Use Caffeine Use: Reports: None Other Caffeine Use: a lot everyday - Recreational Drug Use Recreational Drug Use: No - Living Situation & Occupation Living situation: Reports: Single, with Significant Other (Fianc), with Family (Daughter) Occupation: Employed ([employer]) ED ROS GENERAL - Review of Systems Review Of Systems: See Below Constitutional: Reports: Fatigue, Decreased Appetite (Not being able to sleep.). Denies: Fever, Chills, Malaise, Weakness HEENT: Reports: No Symptoms Respiratory: Reports: No Symptoms Cardiovascular: Reports: Blood Pressure Problem Endocrine: Reports: No Symptoms GI/Abdominal: Reports: No Symptoms : Reports: No Symptoms Musculoskeletal: Reports: Neck Pain, Back Pain (Chronic), Joint Pain Skin: Reports: No Symptoms Neurological: Reports: No Symptoms Psychiatric: Reports: No Symptoms Hematologic/Lymphatic: Reports: No Symptoms Immunologic: Reports: No Symptoms ED EXAM, UPPER BACK/NECK PAIN - Physical Exam Exam: See Below Exam Limited By: No Limitations General Appearance: Alert, WD/WN, Moderate Distress, Other (Temperature is 36.2 degrees. Heart rate 92 in sinus. Respiratory is 18 with O2 sats of 97% room air BP is elevated at 185 116 reflecting her primary hypertension issues and the pain that she is experiencing.) Eye Exam: Bilateral Eye: Normal Inspection, PERRL Head Exam: Atraumatic, Normocephalic Neck Exam: Abnormal Alignment, Limited Range of Motion (Pain is worse with), Muscle Spasm ( left lateral rotation. Marked paraspinal muscle spasm along the left), Painful Range of Motion, Paraspinous Muscle Tender, Stiff Neck, Tenderness (Numbness is isolated to cervical 7 and thoracic 1 levels left side of her neck), Other (Point tenderness isolated to the medial aspect of her left trapezius muscle which appears to be in marked spasm as well. Minimal tenderness over the deltoid tendon insertion as well as the coracoid tendon insertion sites. No clinical evidence of true shoulder involvement in her pain syndrome. Ricky). No: Full Range of Motion, Spinous Processes Tender Nexus Criteria: No: Posterior, Midline Cervical Tenderness, Altered Level of Consciousness, Focal Neurological Deficit, Painful Distraction Injuries Cardiovascular/Respiratory: Regular Rate, Rhythm, No M/R/G, Normal Peripheral Pulses, No JVD, Normal Breath Sounds, No Respiratory Distress, Other (Hypertension) Course - Vital Signs Last Recorded V/S: Last Vital Signs Temp 36.2 C 02/01/21 01:09 Pulse 92 02/01/21 01:09 Resp 18 02/01/21 01:09 BP 185/116 H 02/01/21 01:09 Pulse Ox 97 02/01/21 01:09 - Orders/Labs/Meds Meds: Medications Discontinued Medications Generic Name Dose Route Start Last Admin Trade Name Freq PRN Reason Stop Dose Admin Hydromorphone HCl 1 mg 02/01/21 01:24 Hydromorphone 1 Mg/Ml Syringe IM 02/01/21 01:25 ONETIME ONE Promethazine HCl 25 mg 02/01/21 01:24 Promethazine 25 Mg/Ml Sdv IM 02/01/21 01:25 ONETIME ONE - Radiology Interpretation Free Text/Narrative:: 35-year-old female presents to the ED for evaluation of significant pain in her left upper trapezius and paracervical area left side of neck. She indicates the morning for last she was just simply doing her hair with her left arm up above her head when she experienced sudden onset of severe pain ripping tearing in the upper left neck and back. She is able to localize the pain very well for poor point of maximal tenderness to the medial trapezius muscle. She has been using [place] balm and IcyHot to the area. The trapezius muscle itself is thickened and in spasm. Pain however is isolated to the use C7 facet joint as well as thoracic 1 facet joint and I suspect there is a subluxation of thoracic 1. No true evidence of rotator cuff tear or injury to the left shoulder itself. At this time treatment is pain management. She will be given an injection of Dilaudid 1 mg with Phenergan 25 mg IM to facilitate sleep and provide pain relief overnight. She already has a prescription for Flexeril at home and meloxicam 15 mg daily which she takes daily. Prescription written for 20 tablets of Percocet 5/325 mg strength 1 or 2 every 4-6 hours as needed for pain relief over the next few days. Advised follow-up with a massage therapist or chiropractor on Tuesday if possible. If not a referral to physical therapy would be in order. Departure - Departure Time of Disposition: : Disposition: Home, Self-Care Condition: Fair Clinical Impression: Acute sprain or strain of cervical region Sprain of cervical neck Qualifiers: Encounter type: initial encounter Qualified Code(s): S13.9XXA - Sprain of joints and ligaments of unspecified parts of neck, initial encounter - Discharge Information *PRESCRIPTION DRUG MONITORING PROGRAM REVIEWED*: Not Applicable *COPY OF PRESCRIPTION DRUG MONITORING REPORT IN PATIENT SOFIA: Not Applicable Prescriptions: oxyCODONE HCl/Acetaminophen [Percocet 5-325 mg Tablet] 1 - 2 each PO Q4H PRN #20 tablet PRN Reason: pain relief. Instructions: Cervical Sprain, [id number] Referrals: Raina Bishop NP [Primary Care Provider] - Forms: ED Department Discharge Additional Instructions: Evaluation in the emergency room tonight in regards to persistent pain left upper shoulder in the distribution of the trapezius muscle which radiates down her left arm and up into the left side of your neck to the base of your skull. No specific injury but pain started after lifting your left arm up to do your hair yesterday morning. On examination there is marked paraspinal muscle spasm throughout the trapezius muscle on the left side and also slightly in the rhomboid muscle group as well. Point of maximal tenderness over the C7 and thoracic 1 vertebra suggesting rib head subluxation at the T1 level. Treatment in the emergency room this morning was an IM injection of Dilaudid mixed with Phenergan to allow pain relief and some degree of sedation to allow sleep. You can continue your Lyrica, meloxicam and Flexeril (Cyclobenzaprine) as needed. Later today you will have to fill prescription for Percocet tabs 5/325 mg strength 1 or 2 every 4-6 hours necessary for pain relief until he can get into a chiropractor to have this area adjusted. Suggest taking the pain pills a good hour before seeing the chiropractor which will help facilitate adjustment of the subluxed rib head. Once the rib head is adjusted usually pain relief occurs over the next 36 hours.Suggest trying to get into chiropracter on Tuesday --try [facility] if not able to get into your chiropracter. . Sepsis Event Note (ED) - Evaluation Sepsis Screening Result: No Definite Risk - Focused Exam Vital Signs: Vital Signs Temp Pulse Resp BP Pulse Ox 02/01/21 01:09 36.2 C 92 18 185/116 H 97
[2021-02-01] MEDS: HYDROmorphone 1 MG/ML Syringe IM ONE ×2 (01:33→01:34)
== END 2021-02-01 01:38 | disposition home or self-care (01) ==
LOC: JD.ED 00:59
DX: S13.4XXA Sprain of ligaments of cervical spine, initial encounter (principal); I10 Essential (primary) hypertension; E66.9 Obesity, unspecified; Z68.34 Body mass index [BMI] 34.0-34.9, adult; Z72.0 Tobacco use; Z88.8 Allergy status to other drugs, medicaments and biological substances; Z88.1 Allergy status to other antibiotic agents; Z88.5 Allergy status to narcotic agent; Z91.040 Latex allergy status; Z88.0 Allergy status to penicillin; Z88.2 Allergy status to sulfonamides; Z79.899 Other long term (current) drug therapy; X50.0XXA Overexertion from strenuous movement or load, initial encounter
CPT/HCPCS: 96372; 99283; J1170; J2550

== ENCOUNTER 2021-06-26 20:37 | Emergency (ER) | payer MEDICAID ==
[2021-06-26] MEDS ORDERED: Promethazine 25 MG/ML SDV IM ONE (21:19)
--- NOTE | 2021-06-26 21:30 | EDM.PDOC ---
ED HPI GENERAL MEDICAL PROBLEM - General Chief Complaint: Fever Stated Complaint: FEVER/VOMITING Time Seen by Provider: 06/26/21 21:11 Source of Information: Reports: Patient, RN Notes Reviewed History Limitations: Reports: No Limitations - History of Present Illness INITIAL COMMENTS - FREE TEXT/NARRATIVE: Patient is a 36-year-old female who presents to the ER for her fever and vomiting. States she has been ill for the last 3 days. She states she "feels like that". Has been having multiple episodes of vomiting, she is not been able to keep much for food or her meds down. Patient does have a prescription for Zofran, but states this is not helping. States that she had what they thought was to be Covid at the beginning of the pandemic last year. States that she has also been exposed to someone at her long-term hotel stay, that had Covid. She was tested last week and this was negative. Has not been tested since she has been more symptomatic this week. Patient does have some mild right-sided flank/abdominal discomfort. Not noticed any dysuria, frequency or urgency or any sort of hematuria. States she always has pain with urination due to her hysterectomy. She has also had an appendectomy and a cholecystectomy. States she also has a history of kidney stones. No other worsening sick-like symptoms, cough or shortness of breath or any sort of diarrhea. Abdomen Pain Score (Numeric/FACES): 5 - Related Data Allergies Allergy/AdvReac Type Severity Reaction Status Date / Time ceftriaxone sodium Allergy Anaphylactic Verified 06/26/21 21:05 [From Rocephin] Shock cetirizine [From Zyrtec] Allergy Hives Verified 06/26/21 21:05 diphenhydramine HCl Allergy Anaphylactic Verified 06/26/21 21:05 [From Benadryl] Shock erythromycin base Allergy Anaphylactic Verified 06/26/21 21:05 [Erythromycin Base] Shock hydrocodone Allergy Anaphylactic Verified 06/26/21 21:05 Shock latex Allergy Hives Verified 06/26/21 21:05 Penicillins Allergy Anaphylactic Verified 06/26/21 21:05 Shock prednisone Allergy Anaphylactic Verified 06/26/21 21:05 Shock Sulfa (Sulfonamide Allergy Anaphylactic Verified 06/26/21 21:05 Antibiotics) Shock Home Meds: Home Meds Metoprolol Succinate 50 mg PO DAILY 11/16/17 [History] EPINEPHrine [Epipen] 1 dose IM ONETIME PRN 10/02/18 [History] atorvaSTATin [Lipitor] 10 mg PO DAILY 09/09/19 [History] Losartan [Cozaar] 12.5 mg PO DAILY 06/18/20 [History] Cyclobenzaprine [Flexeril] 5 mg PO QID PRN 06/26/21 [History] Hydrocodone/Acetaminophen [HYDROcodone-Acetaminophen 5-325 MG] 1 each PO Q6H PRN #12 tablet 06/26/21 [Rx] Meloxicam 15 mg PO BEDTIME 06/26/21 [History] Ondansetron [Zofran ODT] 4 mg SL TID PRN 06/26/21 [History] Pregabalin [Lyrica] 100 mg PO BID 06/26/21 [History] Promethazine [Phenergan] 25 mg PO Q6H PRN #12 tab 06/26/21 [Rx] levoFLOXacin [Levofloxacin] 500 mg PO DAILY #4 tablet 06/26/21 [Rx] Past Medical History HEENT History: Reports: 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 HEENT History: eustachian tube dysfunction Cardiovascular History: Reports: Blood Clots/VTE/DVT, Hypertension Other Cardiovascular History: chest pain Respiratory History: Reports: Bronchitis, Recurrent, Pneumonia, Recurrent, 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 Respiratory History: cough Gastrointestinal History: Reports: GERD 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 History: Reports: Pyelonephritis, Renal Calculus, UTI, Recurrent 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: , 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 WATER 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 History: menorrhagia Musculoskeletal History: Reports: Fracture Other Musculoskeletal History: right knee pain Neurological History: Reports: Migraines Psychiatric History: Reports: Depression Endocrine/Metabolic History: Reports: Obesity/BMI 30+ Hematologic History: Reports: Anemia, Blood Transfusion(s) Immunologic History: Reports: Immunosuppression Oncologic (Cancer) History: Reports: Leukemia Dermatologic History: Reports: Eczema - Infectious Disease History Infectious Disease History: Reports: Chicken Pox, Novel Coronavirus - Past Surgical History HEENT Surgical History: Reports: Oral Surgery Cardiovascular Surgical History: Reports: Vascular Surgery, 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 Cardiovascular Surgeries/Procedures: blood clots removed from legs. GI Surgical History: Reports: Appendectomy, Cholecystectomy Female Surgical History: Reports: Section (x4), Hysterectomy, Tubal Ligation Musculoskeletal Surgical History: Reports: ORIF Other Musculoskeletal Surgeries/Procedures:: ankle surgery Social & Family History - Family History Family Medical History: No Pertinent Family History HEENT: Reports: Glaucoma Cardiac: Reports: [place] Neurological: Reports: CVA Oncologic: Reports: Cervix - Tobacco Use Tobacco Use Status *Q: Current Every Day Tobacco User Years of Tobacco use: 15 Packs/Tins Daily: 0.5 - Caffeine Use Caffeine Use: Reports: Energy Drinks, Soda Other Caffeine Use: a lot everyday - Recreational Drug Use Recreational Drug Use: No - Living Situation & Occupation Living situation: Reports: Single, with Significant Other (Fianc), with Family (Daughter) Occupation: Employed ([employer]) ED ROS GENERAL - Review of Systems Review Of Systems: Comprehensive ROS is negative, except as noted in HPI. ED EXAM, GI/ABD - Physical Exam Exam: See Below Exam Limited By: No Limitations General Appearance: Alert, WD/WN, No Apparent Distress Respiratory/Chest: No Respiratory Distress, Lungs Clear, Normal Breath Sounds, No Accessory Muscle Use, Chest Non-Tender Cardiovascular: Normal Peripheral Pulses, Regular Rate, Rhythm, No Edema GI/Abdominal Exam: Normal Bowel Sounds, Soft, No Distention, No Mass, Tender (right sided abdomen/flank pain) Extremities: Normal Inspection, Normal Capillary Refill Neurological: Alert, Oriented, Normal Cognition, No Motor/Sensory Deficits Psychiatric: Normal Affect, Normal Mood Skin Exam: Warm, Dry, Intact, Normal Color, No Rash Course - Vital Signs Last Recorded V/S: Last Vital Signs Temp 98.7 F 06/26/21 21:00 Pulse 93 06/26/21 22:57 Resp 16 06/26/21 22:57 BP 167/110 H 06/26/21 22:57 Pulse Ox 100 06/26/21 22:57 - Orders/Labs/Meds Orders: Active Orders 24 hr Category Date Time Status Abdomen Pelvis wo Cont [CT] Stat Exams 06/26/21 21:19 Ordered CULTURE URINE [MREF] Urgent Lab 06/26/21 22:25 Ordered Labs: Laboratory Tests 06/26/21 06/26/21 Range/Units 21:42 22:05 Urine Color Yellow (Yellow) Urine Appearance Slt cloudy H (Clear) Urine pH 6.5 (5.0-8.0) Ur Specific [place] > or = 1.030 (1.005-1.030) Urine Protein 3+ H (Negative) Urine Glucose (UA) Negative (Negative) Urine Ketones Negative (Negative) Urine Occult Blood 2+ H (Negative) Urine Nitrite Negative (Negative) Urine Bilirubin Negative (Negative) Urine Urobilinogen 1.0 (0.2-1.0) Ur Leukocyte Esterase Negative (Negative) Urine RBC 10-20 H (0-5) /hpf Urine WBC 0-5 (0-5) /hpf Ur Squamous Epith Cells 0-5 (0-5) /hpf Urine Bacteria Moderate H (FEW) /hpf Urine Mucus Moderate H (FEW) /hpf Influenza Type A RNA Negative (NEGATIVE) Influenza Type B RNA Negative (NEGATIVE) SARS-CoV-2 RNA (BLANCO) Negative (NEGATIVE) Meds: Medications Discontinued Medications Generic Name Dose Route Start Last Admin Trade Name Freq PRN Reason Stop Dose Admin Hydromorphone HCl 1 mg 06/26/21 22:01 06/26/21 22:56 Hydromorphone 1 Mg/Ml Syringe IM 06/26/21 22:02 1 mg ONETIME ONE Administration Levofloxacin 500 mg 06/26/21 22:33 06/26/21 22:57 Levofloxacin 500 Mg Tab PO 06/26/21 22:34 500 mg ONETIME ONE Administration Promethazine HCl 25 mg 06/26/21 21:19 06/26/21 21:36 Promethazine 25 Mg/Ml Sdv IM 06/26/21 21:20 25 mg ONETIME ONE Administration - Re-Assessments/Exams Free Text/Narrative Re-Assessment/Exam: 06/26/21 21:29 Patient presents to the ER for evaluation of her nausea/vomiting, and reported fevers. Patient is afebrile at the time of triage. We will go ahead and get a urinalysis, an abdomen/pelvis CT without contrast for evaluation of possible kidney stone. We will go ahead and give her some IM Phenergan, and get her checked for Covid as well. 06/26/21 22:[address] did demonstrate a 56 mm right adnexal lesion, question hemorrhagic cyst but no renal calculus. Urinalysis demonstrates quite a bit of blood in the urine with some mucus and bacteria 0-5 epithelial cells. This could be hemorrhagic cystitis and we will treat with oral Levaquin for initial management. Urine culture has been sent. Covid screen is still pending. However I do believe the likelihood of the patient's abdomen pain is the cyst with ongoing UTI to account for the nausea. Patient has been afebrile here. We will go ahead and get her started on the Levaquin as stated above, and give her some Phenergan for nausea management over the next few days have her hold her Zofran and follow-up with primary care provider on Tuesday if not feeling better. Departure - Departure Time of Disposition: 22:40 Disposition: Home, Self-Care 01 Condition: Good Clinical Impression: Hemorrhagic cyst of right ovary UTI (urinary tract infection) Qualifiers: Urinary tract infection type: acute cystitis Hematuria presence: with hematuria Qualified Code(s): N30.01 - Acute cystitis with hematuria - Discharge Information *PRESCRIPTION DRUG MONITORING PROGRAM REVIEWED*: Yes *COPY OF PRESCRIPTION DRUG MONITORING REPORT IN PATIENT SOFIA: No Prescriptions: Hydrocodone/Acetaminophen [HYDROcodone-Acetaminophen 5-325 MG] 1 each PO Q6H PRN #12 tablet PRN Reason: Pain levoFLOXacin [Levofloxacin] 500 mg PO DAILY #4 tablet Promethazine [Phenergan] 25 mg PO Q6H PRN #12 tab PRN Reason: Nausea Instructions: Urinary Tract Infection, Adult, [id number], Ovarian Cyst, [id number] Referrals: Raina Bishop NP [Primary Care Provider] - Forms: ED Department Discharge Additional Instructions: You have been evaluated in the ED for your nausea/fever and low abdomen pain. Your Covid screen at today's visit was negative. Your urinalysis was consistent with an acute urinary tract infection. Your urine was sent for culture, and you will be notified if you should need a change in your antibiotic. This may take up to 48 hours to result. You have been given a prescription for levofloxacin 500 mg 1 tablet p.o. for 5 days. Please note that the antibiotics can take up to 48 hours to start working. You have been given a prescription for nausea medications as well this will be oral Phenergan. Please take this while using the levofloxacin, and avoid using Zofran when taking the levofloxacin, as it can cause QT prolongation which may lead to cardiac arrhythmias. Your abdomen CT also demonstrated a 56 mm ovarian cyst on the right side of your abdomen, that appears to be hemorrhagic, this can be the source of your abdomen pain as well. I would recommend that you follow-up with WATER 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 on Tuesday, for management of your ovarian cyst. You were given a prescription for a strong pain medication, hydrocodone/acetaminophen 5/325 mg, please take 1 tab every 6 hours as needed for pain not relieved by Tylenol or ibuprofen alone. Please note this medication does contain Tylenol in it, so do not take more than 4000 mg in a 24- hour time span. These medications can be addictive, so please take as few as possible to achieve adequate pain control. These meds can also be quite constipating, recommend that you increase your oral fluid intake and take a stool softener like MiraLAX while taking these medications. Do not drive while taking this medication. This medication was electronically sent to the [place] pharmacy [facility] [employer] [facility]. Please increase your oral fluid intake and try to stay adequately hydrated. Please return to the ED if your symptoms change or worsen. Sepsis Event Note (ED) - Evaluation Sepsis Screening Result: No Definite Risk - Focused Exam Vital Signs: Vital Signs Temp Pulse Resp BP Pulse Ox 06/26/21 22:57 93 16 167/110 H 100 06/26/21 21:00 98.7 F 98 20 197/97 H 99 - My Orders Last 24 Hours: My Active Orders 06/26/21 21:19 Abdomen Pelvis wo Cont [CT] Stat 06/26/21 22:25 CULTURE URINE [MREF] Urgent - Assessment/Plan Last 24 Hours: My Active Orders 06/26/21 21:19 Abdomen Pelvis wo Cont [CT] Stat 06/26/21 22:25 CULTURE URINE [MREF] Urgent
[2021-06-26] MEDS ORDERED: HYDROmorphone 1 MG/ML Syringe IM ONE (22:01)
[2021-06-26] MEDS ORDERED: Levofloxacin 500 MG Tab PO ONE (22:33)
[2021-06-26 22:52] LABS: CORONAVIRUS COVID-19 NAA NEGATIVE (NEGATIVE)
[2021-06-27 00:12] VITALS: BP 164/100; PULSE 84
--- NOTE | 2021-06-27 08:46 | CT ---
CT abdomen and pelvis Technique: Multiple axial sections were obtained from above the dome of the diaphragm inferiorly through the pubic symphysis. Intravenous and oral contrast were not utilized. Reconstructed coronal and sagittal images were obtained. Comparison: Prior CT abdomen and pelvis exam of 01/20/18 as well as prior abdominal x-ray of 09/09/19. Findings: Visualized lung bases show nothing acute. Liver shows no focal parenchymal abnormality. Spleen is stable from prior CT exam and is felt to be within normal limits. Adrenal glands show no nodule. Surgical clips are seen from prior cholecystectomy. Kidneys show a small nonobstructing calculus inferiorly within the right side measuring around 1.5-2 mm. No ureteral dilatation or ureteral stone is seen. No inflammatory change is seen around the kidneys. Abdominal aorta shows no aneurysm. No retroperitoneal adenopathy is seen. No mesenteric abnormalities are seen. Surgical material is seen at the base of the cecum. Mild diverticuli are seen within the descending and sigmoid colon. No inflammatory change or free fluid is seen. There is a cyst being seen within the right adnexa measuring 5.0 cm. Bone window settings were reviewed which appear within normal limits for the patient's age. Impression: 1. 1.5-2 mm nonobstructing calculus inferiorly within the right kidney. No inflammatory change is seen around the kidneys. No ureteral dilatation or ureteral calculus is seen. 2. 5.0 cm cyst within the right adnexa. Follow-up pelvic ultrasound is recommended within 6 months to make sure this resolves. 3. Other findings as noted above which are felt to be incidental. 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
== END 2021-06-26 23:08 | disposition home or self-care (01) ==
LOC: JD.ED 20:37
DX: N30.01 Acute cystitis with hematuria (principal); N83.201 Unspecified ovarian cyst, right side; K21.9 Gastro-esophageal reflux disease without esophagitis; I10 Essential (primary) hypertension; E66.9 Obesity, unspecified; Z68.39 Body mass index [BMI] 39.0-39.9, adult; Z88.0 Allergy status to penicillin; Z91.040 Latex allergy status; Z88.1 Allergy status to other antibiotic agents; Z88.2 Allergy status to sulfonamides; Z88.8 Allergy status to other drugs, medicaments and biological substances; Z72.0 Tobacco use; Z20.822 Contact with and (suspected) exposure to COVID-19
CPT/HCPCS: 0240U; 74176; 81001; 87086; 96372; 99284; A9270; J1170; J2550

== ENCOUNTER 2021-07-24 18:03 | Emergency (ER) | payer MEDICAID ==
[2021-07-24 18:30] VITALS: BP 183/126; PULSE 103
[2021-07-24] MEDS ORDERED: Sodium Chloride 0.9% 10 ML Syringe FLUSH PRN (18:55)
[2021-07-24] MEDS ORDERED: Ondansetron 4 MG/2 ML SDV IVPUSH ONE (19:00)
[2021-07-24] MEDS ORDERED: HYDROmorphone 0.5 MG/0.5 ML Syringe IVPUSH ONE (19:00)
[2021-07-24] MEDS ORDERED: Sodium Chloride 0.9% 1,000 ML IV STA (19:00)
--- NOTE | 2021-07-24 20:47 | US ---
Pelvic ultrasound: Multiple real-time images were obtained transvaginally and transabdominally. Comparison: Previous pelvic ultrasound of 08/29/18. Findings: Prior hysterectomy is noted. Right ovary shows a 4.0 x 4.1 x 3.5 cm cyst which appears complicated and is felt to be hemorrhagic. Left ovary is visualized transabdominally and appears within normal limits. No free fluid is seen. Measurements: Right ovary (include cyst): 5.8 x 4.7 x 4.4 cm Left ovary: 3.8 x 2.2 x 2.8 cm Impression: 1. Complicated cyst within the right ovary measuring up to 4.1 cm. 2. Prior hysterectomy. 3. Other portions of the pelvic ultrasound study appear unremarkable. Diagnostic code #2
--- NOTE | 2021-07-24 21:23 | EDM.PDOC ---
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 Symptoms began this morning. She has a known hemorrhagic cyst on her right ovary. This was diagnosed on CT scan completed on June 26. She has had discomfort off and on since that time but became much more intense today. Has been taken Tylenol and ibuprofen without relief. Patient has had previous hysterectomy, therefore denies possibility of p regnancy. She does not have her appendix either. Denies any fever or chills. States she has been having nausea and vomiting but she attributes this to pain. Denies flank pain or dysuria. Abdominal Pain Score (Numeric/FACES): 10 - Related Data Allergies Allergy/AdvReac Type Severity Reaction Status Date / Time ceftriaxone sodium Allergy Anaphylactic Verified 07/24/21 18:30 [From Rocephin] Shock cetirizine [From Zyrtec] Allergy Hives Verified 07/24/21 18:30 diphenhydramine HCl Allergy Anaphylactic Verified 07/24/21 18:30 [From Benadryl] Shock erythromycin base Allergy Anaphylactic Verified 07/24/21 18:30 [Erythromycin Base] Shock hydrocodone Allergy Anaphylactic Verified 07/24/21 18:30 Shock latex Allergy Hives Verified 07/24/21 18:30 Penicillins Allergy Anaphylactic Verified 07/24/21 18:30 Shock prednisone Allergy Anaphylactic Verified 07/24/21 18:30 Shock Sulfa (Sulfonamide Allergy Anaphylactic Verified 07/24/21 18:30 Antibiotics) Shock Home Meds: Home Meds Metoprolol Succinate 50 mg PO DAILY 11/16/17 [History] EPINEPHrine [Epipen] 1 dose IM ONETIME PRN 10/02/18 [History] atorvaSTATin [Lipitor] 10 mg PO DAILY 09/09/19 [History] Losartan [Cozaar] 12.5 mg PO DAILY 06/18/20 [History] Meloxicam 15 mg PO BEDTIME 06/26/21 [History] Ondansetron [Zofran ODT] 4 mg SL TID PRN 06/26/21 [History] Pregabalin [Lyrica] 100 mg PO BID 06/26/21 [History] Hydrocodone/Acetaminophen [Hydrocodone-Acetamin 5-325 mg] 1 each PO Q4H PRN #12 tablet 07/24/21 [Rx] Past Medical History HEENT History: Reports: 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 HEENT History: eustachian tube dysfunction Cardiovascular History: Reports: Blood Clots/VTE/DVT, Hypertension Other Cardiovascular History: chest pain Respiratory History: Reports: Bronchitis, Recurrent, Pneumonia, Recurrent, 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 Respiratory History: cough Gastrointestinal History: Reports: GERD 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 History: Reports: Pyelonephritis, Renal Calculus, UTI, Recurrent 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: , 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 CORK PRESSING MACHINE OPERATOR History: menorrhagia Musculoskeletal History: Reports: Fracture Other Musculoskeletal History: right knee pain Neurological History: Reports: Migraines Psychiatric History: Reports: Depression Endocrine/Metabolic History: Reports: Obesity/BMI 30+ Hematologic History: Reports: Anemia, Blood Transfusion(s) Immunologic History: Reports: Immunosuppression Oncologic (Cancer) History: Reports: Leukemia Dermatologic History: Reports: Eczema - Infectious Disease History Infectious Disease History: Reports: Chicken Pox, Novel Coronavirus - Past Surgical History Head Surgeries/Procedures: Reports: None HEENT Surgical History: Reports: Oral Surgery Cardiovascular Surgical History: Reports: Vascular Surgery, 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 Cardiovascular Surgeries/Procedures: blood clots removed from legs. Respiratory Surgical History: Reports: None GI Surgical History: Reports: Appendectomy, Cholecystectomy Female Surgical History: Reports: Section, Hysterectomy, Tubal Ligation Other Female Surgeries/Procedures: c secx4 Endocrine Surgical History: Reports: None Neurological Surgical History: Reports: None Musculoskeletal Surgical History: Reports: ORIF Other Musculoskeletal Surgeries/Procedures:: ankle surgery Oncologic Surgical History: Reports: None Dermatological Surgical History: Reports: None Social & Family History - Family History Family Medical History: No Pertinent Family History HEENT: Reports: Glaucoma Cardiac: Reports: SD Neurological: Reports: CVA Oncologic: Reports: Cervix - Tobacco Use Tobacco Use Status *Q: Current Every Day Tobacco User Years of Tobacco use: 15 Packs/Tins Daily: 0.5 - Caffeine Use Caffeine Use: Reports: Coffee, Soda Other Caffeine Use: a lot everyday - Recreational Drug Use Recreational Drug Use: No - Living Situation & Occupation Living situation: Reports: Single, with Significant Other (Fianc), with Family (Daughter) Occupation: Employed ([employer]) ED ROS GENERAL - Review of Systems Review Of Systems: Comprehensive ROS is negative, except as noted in HPI. ED EXAM, RENAL/ - Physical Exam Exam: See Below Exam Limited By: No Limitations General Appearance: Alert, WD/WN, No Apparent Distress Respiratory/Chest: No Respiratory Distress, Lungs Clear, Normal Breath Sounds, No Accessory Muscle Use, Chest Non-Tender Cardiovascular: Normal Peripheral Pulses, Regular Rate, Rhythm, No Edema, No Gallop, No JVD, No Murmur, No Rub GI/Abdominal: Normal Bowel Sounds, Soft, No Organomegaly, No Distention, No Abnormal Bruit, No Mass, Tender (right suprapubic) Neurological: Alert, Oriented, Normal Cognition, Normal Gait, No Motor/Sensory Deficits Psychiatric: Normal Affect, Normal Mood Skin Exam: Warm, Dry, Intact, Normal Color, No Rash Course - Vital Signs Last Recorded V/S: Last Vital Signs Temp 96.9 F 07/24/21 18:29 Pulse 103 H 07/24/21 18:29 Resp 20 07/24/21 18:29 BP 183/126 H 07/24/21 18:29 Pulse Ox 100 07/24/21 18:29 - Orders/Labs/Meds Orders: Active Orders 24 hr Category Date Time Status Peripheral IV Care [RC] . DIRECTED Care 07/24/21 18:56 Active Sodium Chloride 0.9% [Normal Saline] 1,000 ml Med 07/24/21 19:00 Active IV NOW Sodium Chloride 0.9% [Saline Flush] Med 07/24/21 18:55 Active 10 ml FLUSH ASDIRECTED PRN Peripheral IV Insertion Adult [OM.PC] Stat Oth 07/24/21 18:55 Ordered Medication Orders Sodium Chloride (Normal Saline) 1,000 mls @ 150 mls/hr IV NOW STA Stop: 07/25/21 01:39 Last Admin: 07/24/21 19:28 Dose: 150 mls/hr Documented by: BK Sodium Chloride (Sodium Chloride 0.9% 10 Ml Syringe) 10 ml FLUSH ASDIRECTED PRN PRN Reason: Keep Vein Open Last Admin: 07/24/21 19:27 Dose: 10 ml Documented by: BK Labs: Laboratory Tests 07/24/21 07/24/21 07/24/21 Range/Units 19:10 19:10 19:35 WBC 10.22 H (3.98-10.04) K/mm3 RBC 5.31 H (3.98-5.22) M/mm3 Hgb 15.4 (11.2-15.7) gm/dl Hct 45.9 H (34.1-44.9) % MCV 86.4 (79.4-94.8) fl MCH 29.0 (25.6-32.2) pg MCHC 33.6 (32.2-35.5) g/dl RDW Std Deviation 42.9 (36.4-46.3) fL Plt Count 231 (182-369) K/mm3 MPV 10.3 (9.4-12.3) fl Neut % (Auto) 66.6 (34.0-71.1) % Lymph % (Auto) 23.3 (19.3-51.7) % [place] % (Auto) 7.4 (4.7-12.5) % Eos % (Auto) 1.7 (0.7-5.8) Baso % (Auto) 0.5 (0.1-1.2) % Neut # (Auto) 6.81 H (1.56-6.13) K/mm3 Lymph # (Auto) 2.38 (1.18-3.74) K/mm3 [place] # (Auto) 0.76 H (0.24-0.36) K/mm3 Eos # (Auto) 0.17 (0.04-0.36) K/mm3 Baso # (Auto) 0.05 (0.01-0.08) K/mm3 Sodium 138 (136-145) mEq/L Potassium 3.8 (3.5-5.1) mEq/L Chloride 105 (98-107) mEq/L Carbon Dioxide 21 (21-32) mEq/L Anion Gap 15.8 H (5-15) BUN 10 (7-18) mg/dL Creatinine 0.7 (0.55-1.02) mg/dL Est Cr Clr Drug Dosing 102.01 mL/min Estimated GFR (MDRD) > 60 (>60) mL/min BUN/Creatinine Ratio 14.3 (14-18) Glucose 104 H (70-99) mg/dL Calcium 8.7 (8.5-10.1) mg/dL Total Bilirubin 0.8 (0.2-1.0) mg/dL AST 35 (15-37) U/L ALT 67 H (14-59) U/L Alkaline Phosphatase 64 (46-116) U/L Total Protein 7.6 (6.4-8.2) g/dl Albumin 3.7 (3.4-5.0) g/dl Globulin 3.9 gm/dL Albumin/Globulin Ratio 1.0 (1-2) Urine Color Yellow (Yellow) Urine Appearance Slt cloudy H (Clear) Urine pH 6.0 (5.0-8.0) Ur Specific [place] > or = 1.030 (1.005-1.030) Urine Protein 3+ H (Negative) Urine Glucose (UA) Negative (Negative) Urine Ketones Negative (Negative) Urine Occult Blood 3+ H (Negative) Urine Nitrite Negative (Negative) Urine Bilirubin Negative (Negative) Urine Urobilinogen 0.2 (0.2-1.0) Ur Leukocyte Esterase Negative (Negative) U Hyaline Cast (Auto) 0-5 (0-5) /lpf Urine RBC 40-50 H (0-5) /hpf Urine WBC 0-5 (0-5) /hpf Ur Squamous Epith Cells 0-5 (0-5) /hpf Urine Bacteria Moderate H (FEW) /hpf Urine Mucus Few (FEW) /hpf Urine Yeast Rare H (NOT SEEN) Urine HCG, Qual (NEGATIVE) 07/24/21 Range/Units 19:35 WBC (3.98-10.04) K/mm3 RBC (3.98-5.22) M/mm3 Hgb (11.2-15.7) gm/dl Hct (34.1-44.9) % MCV (79.4-94.8) fl MCH (25.6-32.2) pg MCHC (32.2-35.5) g/dl RDW Std Deviation (36.4-46.3) fL Plt Count (182-369) K/mm3 MPV (9.4-12.3) fl Neut % (Auto) (34.0-71.1) % Lymph % (Auto) (19.3-51.7) % [place] % (Auto) (4.7-12.5) % Eos % (Auto) (0.7-5.8) Baso % (Auto) (0.1-1.2) % Neut # (Auto) (1.56-6.13) K/mm3 Lymph # (Auto) (1.18-3.74) K/mm3 [place] # (Auto) (0.24-0.36) K/mm3 Eos # (Auto) (0.04-0.36) K/mm3 Baso # (Auto) (0.01-0.08) K/mm3 Sodium (136-145) mEq/L Potassium (3.5-5.1) mEq/L Chloride (98-107) mEq/L Carbon Dioxide (21-32) mEq/L Anion Gap (5-15) BUN (7-18) mg/dL Creatinine (0.55-1.02) mg/dL Est Cr Clr Drug Dosing mL/min Estimated GFR (MDRD) (>60) mL/min BUN/Creatinine Ratio (14-18) Glucose (70-99) mg/dL Calcium (8.5-10.1) mg/dL Total Bilirubin (0.2-1.0) mg/dL AST (15-37) U/L ALT (14-59) U/L Alkaline Phosphatase (46-116) U/L Total Protein (6.4-8.2) g/dl Albumin (3.4-5.0) g/dl Globulin gm/dL Albumin/Globulin Ratio (1-2) Urine Color (Yellow) Urine Appearance (Clear) Urine pH (5.0-8.0) Ur Specific [place] (1.005-1.030) Urine Protein (Negative) Urine Glucose (UA) (Negative) Urine Ketones (Negative) Urine Occult Blood (Negative) Urine Nitrite (Negative) Urine Bilirubin (Negative) Urine Urobilinogen (0.2-1.0) Ur Leukocyte Esterase (Negative) U Hyaline Cast (Auto) (0-5) /lpf Urine RBC (0-5) /hpf Urine WBC (0-5) /hpf Ur Squamous Epith Cells (0-5) /hpf Urine Bacteria (FEW) /hpf Urine Mucus (FEW) /hpf Urine Yeast (NOT SEEN) Urine HCG, Qual Negative (NEGATIVE) Meds: Medications Generic Name Dose Route Start Last Admin Trade Name Freq PRN Reason Stop Dose Admin Sodium Chloride 1,000 mls @ 150 mls/hr 07/24/21 19:00 07/24/21 19:28 Normal Saline IV 07/25/21 01:39 150 mls/hr NOW STA Administration Sodium Chloride 10 ml 07/24/21 18:55 07/24/21 19:27 Sodium Chloride 0.9% 10 Ml Syringe FLUSH 10 ml ASDIRECTED PRN Administration Keep Vein Open Discontinued Medications Generic Name Dose Route Start Last Admin Trade Name Soniya PRN Reason Stop Dose Admin Hydromorphone HCl 0.5 mg 07/24/21 19:00 07/24/21 19:27 Hydromorphone 0.5 Mg/0.5 Ml Syringe IVPUSH 07/24/21 19:01 0.5 mg ONETIME ONE Administration Ondansetron HCl 4 mg 07/24/21 19:00 07/24/21 19:28 Ondansetron 4 Mg/2 Ml Sdv IVPUSH 07/24/21 19:01 4 mg ONETIME ONE Administration - Re-Assessments/Exams Free Text/Narrative Re-Assessment/Exam: Patient is 36-year-old female presenting to the emergency department with complaints of right pelvic pain. Reports has known hemorrhagic cyst which she feels has been causing her pain. On exam, she does have significant right suprapubic tenderness. Exam is otherwise unremarkable. She does not have her appendix. I have ordered blood work, urinalysis, transvaginal ultrasound. We will give her IV fluids of normal saline, Zofran, Dilaudid. 07/24/21 21:20 Impression of transvaginal ultrasound as follows: 1. Complicated cyst within the right ovary measuring up to 4.1 cm. 2. Prior hysterectomy. 3. Other portions of pelvic ultrasound study appear unremarkable. Previous measurement of the cyst was 5 cm indicating there has reduced in size. She has no free fluid in her pelvis. Continues to complain of pain. I will give her a dose of hydrocodone with Tylenol here and send a short prescription for this. Patient has hydrocodone listed as an allergy, however she states she is now allergic to hydrocodone. 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 She has taken generic hydrocodone with Tylenol in the past without reaction. She is comfortable taking this medication.Recommend routine ibuprofen as well as warm pack to the area. Discussed return precautions. Discharge instructions as document. Departure - Departure Time of Disposition: 21:21 Disposition: Home, Self-Care 01 Condition: Good Clinical Impression: Hemorrhagic cyst of right ovary - Discharge Information *PRESCRIPTION DRUG MONITORING PROGRAM REVIEWED*: Yes *COPY OF PRESCRIPTION DRUG MONITORING REPORT IN PATIENT SOFIA: No Prescriptions: Hydrocodone/Acetaminophen [Hydrocodone-Acetamin 5-325 mg] 1 each PO Q4H PRN #12 tablet PRN Reason: Pain Instructions: Ovarian Cyst, [id number] Referrals: Raina Bishop NP [Primary Care Provider] - Additional Instructions: Take ibuprofen routinely for pain. For pain not relieved by this, use the hydrocodone with Tylenol only as prescribed. Do not work or drive for 12 hours after taking this as it can be sedating. Apply warm pack to the area intermittently. Follow-up with primary care provider next available visit. Return to ER for any new or worsening symptoms. Sepsis Event Note (ED) - Focused Exam Vital Signs: Vital Signs Temp Pulse Resp BP Pulse Ox 07/24/21 18:29 96.9 F 103 H 20 183/126 H 100 - My Orders Last 24 Hours: My Active Orders 07/24/21 18:55 Sodium Chloride 0.9% [Saline Flush] 10 ml FLUSH ASDIRECTED PRN Peripheral IV Insertion Adult [OM.PC] Stat 07/24/21 18:56 Peripheral IV Care [RC] . DIRECTED 07/24/21 19:00 Sodium Chloride 0.9% [Normal Saline] 1,000 ml IV NOW - Assessment/Plan Last 24 Hours: My Active Orders 07/24/21 18:55 Sodium Chloride 0.9% [Saline Flush] 10 ml FLUSH ASDIRECTED PRN Peripheral IV Insertion Adult [OM.PC] Stat 07/24/21 18:56 Peripheral IV Care [RC] . DIRECTED 07/24/21 19:00 Sodium Chloride 0.9% [Normal Saline] 1,000 ml IV NOW
[2021-07-24] MEDS ORDERED: Acetaminophen/HYDROcodone 325-5 MG Tab PO ONE (21:32)
== END 2021-07-24 21:40 | disposition home or self-care (01) ==
LOC: JD.ED 18:03
DX: N83.201 Unspecified ovarian cyst, right side (principal); I10 Essential (primary) hypertension; E66.9 Obesity, unspecified; Z68.37 Body mass index [BMI] 37.0-37.9, adult; Z86.16 Personal history of COVID-19; Z72.0 Tobacco use; Z88.1 Allergy status to other antibiotic agents; Z88.8 Allergy status to other drugs, medicaments and biological substances; Z88.5 Allergy status to narcotic agent; Z91.040 Latex allergy status; Z88.0 Allergy status to penicillin; Z88.2 Allergy status to sulfonamides; Z79.899 Other long term (current) drug therapy
CPT/HCPCS: 36415; 76830; 76830-26; 80053; 81001; 81025; 85025; 96374; 96375; 99284; 99284-25; A9270-GY; J1170; J2405; J7030

== ENCOUNTER 2021-08-13 11:39 | Emergency (ER) | payer MEDICAID ==
[2021-08-13 12:00] VITALS: BP 159/98; PULSE 74
[2021-08-13] MEDS ORDERED: Sodium Chloride 0.9% 10 ML Syringe FLUSH PRN (12:23)
[2021-08-13] MEDS ORDERED: Ondansetron 4 MG/2 ML SDV IVPUSH ONE (12:25)
[2021-08-13] MEDS ORDERED: HYDROmorphone 0.5 MG/0.5 ML Syringe IVPUSH ONE (12:25)
[2021-08-13] MEDS ORDERED: Sodium Chloride 0.9% 1,000 ML IV STA (12:25)
[2021-08-13] MEDS ORDERED: Iopamidol 612 MG/ML 100 ML Bottle IVPUSH ONE (12:28)
--- NOTE | 2021-08-13 12:40 | EDM.PDOC ---
ED HPI GENERAL MEDICAL PROBLEM - General Chief Complaint: Abdominal Pain Stated Complaint: LOWER ABDOMINAL PAIN Time Seen by Provider: 08/13/21 11:54 Source of Information: Reports: Patient, Old Records, RN Notes Reviewed History Limitations: Reports: No Limitations - History of Present Illness INITIAL COMMENTS - FREE TEXT/NARRATIVE: Patient is a 36-year-old female presenting to ER with complaints of right lower quadrant abdominal pain. Symptoms came on suddenly during the night and awoke her from sleep. She describes it as a sharp, stabbing pain that waxes and wanes. When the pain worsens, she has nausea and vomiting with it. He reports urinary urgency but that she only goes a small amount. Patient reports history of kidney stones but thinks this feels different than a kidney stone. She also has history of a hemorrhagic right ovarian cyst. She reports pain began the same area as the pain she had associate with this, however it is much more intense. She is scheduled to see gynecology at the end of September but cannot be seen sooner. She has an appoint with her primary care provider, Elsi Bishop, in 1 week. She reports that when going to bed last night, she had no pain. Pt has hx of previous hysterectomy and appendectomy. Right Lower Abdominal Pain Score (Numeric/FACES): 10 - Related Data Allergies Allergy/AdvReac Type Severity Reaction Status Date / Time ceftriaxone sodium Allergy Anaphylactic Verified 07/24/21 18:30 [From Rocephin] Shock cetirizine [From Zyrtec] Allergy Hives Verified 07/24/21 18:30 diphenhydramine HCl Allergy Anaphylactic Verified 07/24/21 18:30 [From Benadryl] Shock erythromycin base Allergy Anaphylactic Verified 07/24/21 18:30 [Erythromycin Base] Shock hydrocodone Allergy Anaphylactic Verified 07/24/21 18:30 Shock latex Allergy Hives Verified 07/24/21 18:30 Penicillins Allergy Anaphylactic Verified 07/24/21 18:30 Shock prednisone Allergy Anaphylactic Verified 07/24/21 18:30 Shock Sulfa (Sulfonamide Allergy Anaphylactic Verified 07/24/21 18:30 Antibiotics) Shock Home Meds: Home Meds Metoprolol Succinate 50 mg PO DAILY 11/16/17 [History] EPINEPHrine [Epipen] 1 dose IM ONETIME PRN 10/02/18 [History] atorvaSTATin [Lipitor] 10 mg PO DAILY 09/09/19 [History] Losartan [Cozaar] 12.5 mg PO DAILY 06/18/20 [History] Meloxicam 15 mg PO BEDTIME 06/26/21 [History] Ondansetron [Zofran ODT] 4 mg SL TID PRN 06/26/21 [History] Pregabalin [Lyrica] 100 mg PO BID 06/26/21 [History] Hydrocodone/Acetaminophen [Hydrocodone-Acetamin 5-325 mg] 1 each PO Q4H PRN #12 tablet 07/24/21 [Rx] Acetaminophen/oxyCODONE [Percocet 325-5 MG] 1 each PO Q4H PRN #15 tab 08/13/21 [Rx] Ondansetron [Zofran ODT] 4 mg PO Q6H PRN #10 tab.dis 08/13/21 [Rx] Tamsulosin [Tamsulosin 24 Hr] 0.4 mg PO DAILY #14 cap.er 08/13/21 [Rx] Past Medical History HEENT History: Reports: 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 HEENT History: eustachian tube dysfunction Cardiovascular History: Reports: Blood Clots/VTE/DVT, Hypertension Other Cardiovascular History: chest pain Respiratory History: Reports: Bronchitis, Recurrent, Pneumonia, Recurrent, 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 Respiratory History: cough Gastrointestinal History: Reports: GERD 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 History: Reports: Pyelonephritis, Renal Calculus, UTI, Recurrent RN REHAB History: Reports: , 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 RN REHAB History: menorrhagia Musculoskeletal History: Reports: Fracture Other Musculoskeletal History: right knee pain Neurological History: Reports: Migraines Psychiatric History: Reports: Depression Endocrine/Metabolic History: Reports: Obesity/BMI 30+ Hematologic History: Reports: Anemia, Blood Transfusion(s) Immunologic History: Reports: Immunosuppression Oncologic (Cancer) History: Reports: Leukemia Dermatologic History: Reports: Eczema - Infectious Disease History Infectious Disease History: Reports: Chicken Pox, Novel Coronavirus - Past Surgical History Head Surgeries/Procedures: Reports: None HEENT Surgical History: Reports: Oral Surgery Cardiovascular Surgical History: Reports: Vascular Surgery, 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 Cardiovascular Surgeries/Procedures: blood clots removed from legs. Respiratory Surgical History: Reports: None GI Surgical History: Reports: Appendectomy, Cholecystectomy Female Surgical History: Reports: Section, Hysterectomy, Tubal Ligation Other Female Surgeries/Procedures: c secx4 Endocrine Surgical History: Reports: None Neurological Surgical History: Reports: None Musculoskeletal Surgical History: Reports: ORIF Other Musculoskeletal Surgeries/Procedures:: ankle surgery Oncologic Surgical History: Reports: None Dermatological Surgical History: Reports: None Social & Family History - Family History Family Medical History: No Pertinent Family History HEENT: Reports: Glaucoma Cardiac: Reports: [place] Neurological: Reports: CVA Oncologic: Reports: Cervix - Caffeine Use Caffeine Use: Reports: Coffee, Soda Other Caffeine Use: a lot everyday - Living Situation & Occupation Living situation: Reports: Single, with Significant Other (Fianc), with Family (Daughter) Occupation: Employed ([employer]) ED ROS GENERAL - Review of Systems Review Of Systems: See Below Constitutional: Reports: No Symptoms. Denies: Fever, Chills HEENT: Reports: No Symptoms Respiratory: Reports: No Symptoms Cardiovascular: Reports: No Symptoms Endocrine: Reports: No Symptoms GI/Abdominal: Reports: Abdominal Pain, Nausea, Vomiting. Denies: Diarrhea : Reports: Frequency, Urgency. Denies: Dysuria Musculoskeletal: Reports: No Symptoms Skin: Reports: No Symptoms Neurological: Reports: No Symptoms Psychiatric: Reports: No Symptoms Hematologic/Lymphatic: Reports: No Symptoms Immunologic: Reports: No Symptoms ED EXAM, GI/ABD - Physical Exam Exam: See Below Exam Limited By: No Limitations General Appearance: Alert, WD/WN, No Apparent Distress Respiratory/Chest: No Respiratory Distress, Lungs Clear, Normal Breath Sounds, No Accessory Muscle Use, Chest Non-Tender Cardiovascular: Normal Peripheral Pulses, Regular Rate, Rhythm, No Edema, No Gallop, No JVD, No Murmur, No Rub GI/Abdominal Exam: Normal Bowel Sounds, Soft, No Organomegaly, No Distention, No Abnormal Bruit, No Mass, Pelvis Stable, Tender (RLQ). No: Guarding, Rigid, Rebound Back Exam: Normal Inspection, Full Range of Motion, CVA Tenderness (R). No: CVA Tenderness (L) Neurological: Alert, Oriented, Normal Cognition, Normal Gait, Normal Reflexes, No Motor/Sensory Deficits Psychiatric: Normal Affect, Normal Mood Skin Exam: Warm, Dry, Intact, Normal Color, No Rash Course - Vital Signs Last Recorded V/S: Last Vital Signs Temp 98.6 F 08/13/21 11:57 Pulse 74 08/13/21 11:57 Resp 18 08/13/21 11:57 BP 159/98 H 08/13/21 11:57 Pulse Ox 100 08/13/21 11:57 - Orders/Labs/Meds Orders: Active Orders 24 hr Category Date Time Status Peripheral IV Care [RC] . DIRECTED Care 08/13/21 12:24 Active Sodium Chloride 0.9% [Saline Flush] Med 08/13/21 12:23 Active 10 ml FLUSH ASDIRECTED PRN Peripheral IV Insertion Adult [OM.PC] Stat Oth 08/13/21 12:23 Ordered Medication Orders Sodium Chloride (Sodium Chloride 0.9% 10 Ml Syringe) 10 ml FLUSH ASDIRECTED PRN PRN Reason: Keep Vein Open Last Admin: 08/13/21 13:00 Dose: 10 ml Documented by: BOB Labs: Laboratory Tests 08/13/21 08/13/21 08/13/21 Range/Units 12:36 12:36 12:36 WBC 14.36 H (3.98-10.04) K/mm3 RBC 5.03 (3.98-5.22) M/mm3 Hgb 14.8 (11.2-15.7) gm/dl Hct 43.2 (34.1-44.9) % MCV 85.9 (79.4-94.8) fl MCH 29.4 (25.6-32.2) pg MCHC 34.3 (32.2-35.5) g/dl RDW Std Deviation 42.7 (36.4-46.3) fL Plt Count 292 (182-369) K/mm3 MPV 10.0 (9.4-12.3) fl Neut % (Auto) 78.9 H (34.0-71.1) % Lymph % (Auto) 13.6 L (19.3-51.7) % [place] % (Auto) 5.6 (4.7-12.5) % Eos % (Auto) 1.0 (0.7-5.8) Baso % (Auto) 0.4 (0.1-1.2) % Neut # (Auto) 11.33 H (1.56-6.13) K/mm3 Lymph # (Auto) 1.95 (1.18-3.74) K/mm3 [place] # (Auto) 0.81 H (0.24-0.36) K/mm3 Eos # (Auto) 0.14 (0.04-0.36) K/mm3 Baso # (Auto) 0.06 (0.01-0.08) K/mm3 Sodium 140 (136-145) mEq/L Potassium 3.9 (3.5-5.1) mEq/L Chloride 104 (98-107) mEq/L Carbon Dioxide 25 (21-32) mEq/L Anion Gap 14.9 (5-15) BUN 7 (7-18) mg/dL Creatinine 0.9 (0.55-1.02) mg/dL Est Cr Clr Drug Dosing 79.34 mL/min Estimated GFR (MDRD) > 60 (>60) mL/min BUN/Creatinine Ratio 7.8 L (14-18) Glucose 139 H (70-99) mg/dL Calcium 8.9 (8.5-10.1) mg/dL Total Bilirubin 1.0 (0.2-1.0) mg/dL AST 38 H (15-37) U/L ALT 73 H (14-59) U/L Alkaline Phosphatase 62 (46-116) U/L C-Reactive Protein < 0.2 (<1.0) mg/dL Total Protein 7.1 (6.4-8.2) g/dl Albumin 3.7 (3.4-5.0) g/dl Globulin 3.4 gm/dL Albumin/Globulin Ratio 1.1 (1-2) Urine Color Yellow (Yellow) Urine Appearance Cloudy H (Clear) Urine pH 6.0 (5.0-8.0) Ur Specific [place] > or = 1.030 (1.005-1.030) Urine Protein 3+ H (Negative) Urine Glucose (UA) Negative (Negative) Urine Ketones Negative (Negative) Urine Occult Blood 3+ H (Negative) Urine Nitrite Negative (Negative) Urine Bilirubin Negative (Negative) Urine Urobilinogen 0.2 (0.2-1.0) Ur Leukocyte Esterase Negative (Negative) Urine RBC 30-40 H (0-5) /hpf Urine WBC 0-5 (0-5) /hpf Ur Squamous Epith Cells 5-10 H (0-5) /hpf Urine Bacteria Not seen (FEW) /hpf Urine Mucus Not seen (FEW) /hpf Meds: Medications Generic Name Dose Route Start Last Admin Trade Name Soniya PRN Reason Stop Dose Admin Sodium Chloride 10 ml 08/13/21 12:23 08/13/21 13:00 Sodium Chloride 0.9% 10 Ml Syringe FLUSH 10 ml ASDIRECTED PRN Administration Keep Vein Open Discontinued Medications Generic Name Dose Route Start Last Admin Trade Name Soniya PRN Reason Stop Dose Admin Hydromorphone HCl 0.5 mg 08/13/21 12:25 08/13/21 12:45 Hydromorphone 0.5 Mg/0.5 Ml Syringe IVPUSH 08/13/21 12:26 0.5 mg ONETIME ONE Administration Sodium Chloride 1,000 mls @ 999 mls/hr 08/13/21 12:25 08/13/21 12:46 Normal Saline IV 08/13/21 13:25 999 mls/hr NOW STA Administration Iopamidol 100 ml 08/13/21 12:28 08/13/21 13:00 Iopamidol 612 Mg/Ml 100 Ml Bottle IVPUSH 08/13/21 12:29 100 ml ONETIME ONE Administration Ketorolac Tromethamine 30 mg 08/13/21 13:07 08/13/21 13:20 Ketorolac 30 Mg/Ml Sdv IVPUSH 08/13/21 13:08 30 mg ONETIME ONE Administration Ondansetron HCl 4 mg 08/13/21 12:25 08/13/21 12:45 Ondansetron 4 Mg/2 Ml Sdv IVPUSH 08/13/21 12:26 4 mg ONETIME ONE Administration - Re-Assessments/Exams Free Text/Narrative Re-Assessment/Exam: Patient is a patient is a 36-year-old female presenting to ER with complaints of right lower quadrant abdominal pain since early this morning. She does have associated vomiting. Reports pain waxes and wanes. She has history of kidney stones as well as a right ovarian cyst. On exam, she had localized right lower quadrant abdominal tenderness and right CVA tenderness. Presentation is concerning for possible kidney stone versus ovarian cyst, with stone being more likely.. I ordered blood work, urinalysis, CT scan of the abdomen pelvis with IV contrast. I will give a 1 L bolus of normal saline, Zofran, and Dilaudid. 08/13/21 14:06 Hematology significant for WBC elevated 14.36. Otherwise unremarkable. Urinalysis significant for 3+ occult blood and 30-[address] scan of the abdomen pelvis impression as follows: 1. Right hydronephrosis and hydroureter extending to the distal right ureter where there is a 3 mm x 2 mm x 2 mm calculus. 2. Wall thickening of colon may be from underdistention. Results discussed with patient. I will give her a prescription for Percocet for pain. We will also start her on Flomax. She will provide a urine strainer. She does have a urologist in [place]. Discussed if she does not pass the stone within a week, she should follow-up with urology. Discussed return precautions. Discharge instructions as documented. Departure - Departure Time of Disposition: 14:06 Disposition: Home, Self-Care 01 Condition: Good Clinical Impression: Kidney stones - Discharge Information *PRESCRIPTION DRUG MONITORING PROGRAM REVIEWED*: Yes *COPY OF PRESCRIPTION DRUG MONITORING REPORT IN PATIENT SOFIA: No Prescriptions: Tamsulosin [Tamsulosin 24 Hr] 0.4 mg PO DAILY #14 cap.er Acetaminophen/oxyCODONE [Percocet 325-5 MG] 1 each PO Q4H PRN #15 tab PRN Reason: Pain Ondansetron [Zofran ODT] 4 mg PO Q6H PRN #10 tab.dis PRN Reason: Nausea/Vomiting Instructions: Kidney Stones, [id number] Referrals: Raina Bishop NP [Primary Care Provider] - Forms: ED Department Discharge Additional Instructions: Take the tamsulosin daily until stone passes. Take Tylenol and ibuprofen routinely for pain. For pain not relieved by this, you may take one Percocet as prescribed. Do not work or drive for 12 hours after taking this medication as it can be sedating. Use Zofran as needed for nausea. Strain your urine each time that you urinate. If you do not pass the stone within 1 week, recommend follow-up with urology. Return to ER for any new or worsening symptoms. Sepsis Event Note (ED) - Evaluation Sepsis Screening Result: No Definite Risk - Focused Exam Vital Signs: Vital Signs Temp Pulse Resp BP Pulse Ox 08/13/21 11:57 98.6 F 74 18 159/98 H 100 - My Orders Last 24 Hours: My Active Orders 08/13/21 12:23 Sodium Chloride 0.9% [Saline Flush] 10 ml FLUSH ASDIRECTED PRN Peripheral IV Insertion Adult [OM.PC] Stat 08/13/21 12:24 Peripheral IV Care [RC] . DIRECTED - Assessment/Plan Last 24 Hours: My Active Orders 08/13/21 12:23 Sodium Chloride 0.9% [Saline Flush] 10 ml FLUSH ASDIRECTED PRN Peripheral IV Insertion Adult [OM.PC] Stat 08/13/21 12:24 Peripheral IV Care [RC] . DIRECTED
[2021-08-13] MEDS ORDERED: Ketorolac 30 MG/ML SDV IVPUSH ONE (13:07)
--- NOTE | 2021-08-13 13:25 | CT ---
EXAM: CT ABDOMEN PELVIS WITH CONTRAST LOCATION: [facility] [employer] DATE/TIME: 08/13/2021 12:29 PM INDICATION: RLQ pain COMPARISON: CT 06/26/2021 TECHNIQUE: CT scan of the abdomen and pelvis was performed following injection of IV contrast. Multiplanar reformats were obtained. Dose reduction techniques were used. CONTRAST: Isovue 300 100 FINDINGS: LOWER CHEST: Small amount of fluid in the esophagus. HEPATOBILIARY: Cholecystectomy. Mild bile duct dilatation may be from cholecystectomy. PANCREAS: Normal. SPLEEN: Normal. ADRENAL GLANDS: Normal. KIDNEYS/BLADDER: There is right hydronephrosis and hydroureter extend into the distal right ureter, where there is a 3 mm x 2 mm x 2 mm calculus (series 2 image 79). There is mild stranding adjacent to the distal right ureter. A tiny hypoattenuating left renal lesion is too small to characterize. This is likely to represent a simple cyst. No follow-up required. BOWEL: There is colonic diverticulosis. There is wall thickening of the colon. Status post appendectomy. LYMPH NODES: Normal. VASCULATURE: Unremarkable. PELVIC ORGANS: Hysterectomy. MUSCULOSKELETAL: Normal. IMPRESSION: 1. Right hydronephrosis and hydroureter extending to the distal right ureter, where there is a 3 mm x 2 mm x 2 mm calculus. 2. Wall thickening of colon may be from underdistention. 3. Colonic diverticulosis. SIGNED BY: Aggie Lopez MD 08/13/2021 2:20 PM KAREY
== END 2021-08-13 14:33 | disposition home or self-care (01) ==
LOC: JD.ED 11:39
DX: N13.2 Hydronephrosis with renal and ureteral calculous obstruction (principal); I10 Essential (primary) hypertension; K21.9 Gastro-esophageal reflux disease without esophagitis; E66.9 Obesity, unspecified; Z68.37 Body mass index [BMI] 37.0-37.9, adult; Z88.1 Allergy status to other antibiotic agents; Z88.8 Allergy status to other drugs, medicaments and biological substances; Z88.0 Allergy status to penicillin; Z88.2 Allergy status to sulfonamides; Z91.040 Latex allergy status; Z79.899 Other long term (current) drug therapy
CPT/HCPCS: 36415; 74177; 80053; 81001; 85025; 86140; 96374; 96375; 99284; J1170; J1885; J2405; J7030; Q9967; 99285

== ENCOUNTER 2021-12-06 22:28 | Emergency (ER) | payer MEDICAID ==
[2021-12-06 22:37] VITALS: BP 180/113; PULSE 110
[2021-12-06] MEDS ORDERED: Sodium Chloride 0.9% 10 ML Syringe FLUSH PRN (22:40)
[2021-12-07] MEDS ORDERED: Potassium Chloride 20 MEQ Tab.ER PO ONE (00:39)
[2021-12-07] MEDS ORDERED: Magnesium Oxide 400 MG Tab PO ONE (00:39)
== END 2021-12-07 01:12 | disposition home or self-care (01) ==
LOC: JD.ED 22:28
DX: R07.89 Other chest pain (principal); B34.9 Viral infection, unspecified; E87.6 Hypokalemia; I10 Essential (primary) hypertension; K21.9 Gastro-esophageal reflux disease without esophagitis; E66.9 Obesity, unspecified; Z68.39 Body mass index [BMI] 39.0-39.9, adult; Z88.1 Allergy status to other antibiotic agents; Z88.8 Allergy status to other drugs, medicaments and biological substances; Z79.899 Other long term (current) drug therapy; Z88.2 Allergy status to sulfonamides; Z88.0 Allergy status to penicillin; Z88.5 Allergy status to narcotic agent; Z87.891 Personal history of nicotine dependence
CPT/HCPCS: 36415; 71045; 80053; 83735; 84484; 85025; 85379; 85610; 85730; 93005; 99285; A9270; J3490

== ENCOUNTER 2022-02-13 21:21 | Emergency (ER) | payer MEDICAID ==
[2022-02-13 21:41] VITALS: BP 100/89; PULSE 103
[2022-02-13] MEDS ORDERED: Ondansetron 4 MG Tab.DIS PO ONE (21:48)
[2022-02-13] MEDS ORDERED: Levofloxacin 500 MG Tab PO ONE (22:34)
== END 2022-02-13 22:51 | disposition home or self-care (01) ==
LOC: JD.ED 21:21
DX: N39.0 Urinary tract infection, site not specified (principal); I10 Essential (primary) hypertension; K21.9 Gastro-esophageal reflux disease without esophagitis; E66.9 Obesity, unspecified; Z68.41 Body mass index [BMI] 40.0-44.9, adult; Z88.1 Allergy status to other antibiotic agents; Z79.899 Other long term (current) drug therapy; Z88.8 Allergy status to other drugs, medicaments and biological substances
CPT/HCPCS: 81001; 87086; 87088; 87186; 99284; A9270

== ENCOUNTER 2022-11-29 17:12 | Emergency (ER) | payer MEDICAID ==
[2022-11-29 17:21] VITALS: BP 179/113; PULSE 88
[2022-11-29] MEDS ORDERED: Sodium Chloride 0.9% 10 ML Syringe FLUSH PRN (17:42)
[2022-11-29] MEDS ORDERED: Iopamidol 755 Mg/ML 100 ML Bottle IVPUSH ONE (18:18)
[2022-11-29 18:27] LABS: ESTIMATED GFR 83 mL/min (>60)
[2022-11-29] MEDS ORDERED: Sodium Chloride 0.9% 100 ML IV SCH (18:30)
== END 2022-11-29 20:15 | disposition home or self-care (01) ==
LOC: JD.ED 17:12
DX: R07.89 Other chest pain (principal); I10 Essential (primary) hypertension; E66.9 Obesity, unspecified; Z68.41 Body mass index [BMI] 40.0-44.9, adult; Z86.16 Personal history of COVID-19; Z79.01 Long term (current) use of anticoagulants; Z79.899 Other long term (current) drug therapy; Z88.0 Allergy status to penicillin; Z88.2 Allergy status to sulfonamides; Z88.1 Allergy status to other antibiotic agents; Z88.8 Allergy status to other drugs, medicaments and biological substances; Z91.040 Latex allergy status
CPT/HCPCS: 36415; 71275; 80053; 84484; 85025; 93005; 99285; Q9967; 93010; 99284

== ENCOUNTER 2023-02-15 14:43 | Emergency (ER) | payer MEDICAID ==
[2023-02-15] MEDS ORDERED: Sodium Chloride 0.9% 1,000 ML IV STA (15:23)
[2023-02-15] MEDS ORDERED: Sodium Chloride 0.9% 10 ML Syringe FLUSH PRN (15:23)
[2023-02-15] MEDS ORDERED: Metoclopramide 10 MG/2 ML SDV IVPUSH ONE (15:24)
[2023-02-15] MEDS ORDERED: HYDROmorphone 0.5 MG/0.5 ML Syringe IVPUSH ONE (15:24)
[2023-02-15 15:46] LABS: BASOPHILS ABSOLUTE AUTO 0.03 K/mm3 (0.01-0.08); BASOPHILS PERCENT AUTO 0.3 % (0.1-1.2); EOSINOPHILS ABSOLUTE AUTO 0.07 K/mm3 (0.04-0.36); EOSINOPHILS PERCENT AUTO 0.7 (0.7-5.8); HEMATOCRIT 40.5 % (34.1-44.9); HEMOGLOBIN 14.1 gm/dl (11.2-15.7); IMMATURE GRAN ABSOLUTE AUTO 0.03 K/mm3 (0.00-0.10); IMMATURE GRAN PERCENT AUTO 0.3 % (<=1.0); LYMPHOCYTES ABSOLUTE AUTO 1.57 K/mm3 (1.18-3.74); LYMPHOCYTES PERCENT AUTO 15.6 % (19.3-51.7); MEAN CORPUSCULAR HEMOGLOBIN 29.3 pg (25.6-32.2); MEAN CORPUSCULAR HGB CONC 34.8 g/dl (32.2-35.5); MEAN CORPUSCULAR VOLUME 84.2 fl (79.4-94.8); MEAN PLATELET VOLUME 10.6 fl (9.4-12.3); MONOCYTES ABSOLUTE AUTO 0.59 K/mm3 (0.24-0.36); MONOCYTES PERCENT AUTO 5.8 % (4.7-12.5); NEUTROPHILS PERCENT AUTO 77.3 % (34.0-71.1); PLATELET COUNT,PLT 218 K/mm3 (182-369); RED BLOOD CELL COUNT 4.81 M/mm3 (3.98-5.22); WHITE BLOOD CELL COUNT,WBC 10.09 K/mm3 (3.98-10.04)
[2023-02-15 16:09] LABS: A/G RATIO 0.8 (1-2); ALBUMIN 3.5 g/dl (3.4-5.0); ANION GAP 14.3 (5-15); BILIRUBIN TOTAL 1.3 mg/dL (0.2-1.0); CALCIUM 9.6 mg/dL (8.5-10.1); CREATININE 0.9 mg/dL (0.55-1.02); EST CRCL DRUG DOSING (CG) 78.56 mL/min; POTASSIUM,K 3.3 mEq/L (3.5-5.1); PROTEIN TOTAL,TP 7.7 g/dl (6.4-8.2)
[2023-02-15] MEDS ORDERED: Iopamidol 612 MG/ML 30 ML SDV IVPUSH ONE ×2 (16:49)
[2023-02-15] MEDS: Iopamidol 612 MG/ML 30 ML SDV IVPUSH ONE (16:50)
[2023-02-15 17:43] VITALS: BP 159/93; PULSE 91
== END 2023-02-15 17:37 | disposition home or self-care (01) ==
LOC: JD.ED 14:43
DX: R10.11 Right upper quadrant pain (principal); R11.2 Nausea with vomiting, unspecified; I10 Essential (primary) hypertension; K21.9 Gastro-esophageal reflux disease without esophagitis; E66.9 Obesity, unspecified; Z68.41 Body mass index [BMI] 40.0-44.9, adult; Z88.1 Allergy status to other antibiotic agents; Z88.8 Allergy status to other drugs, medicaments and biological substances; Z88.0 Allergy status to penicillin; Z91.040 Latex allergy status; Z88.2 Allergy status to sulfonamides; Z88.5 Allergy status to narcotic agent; Z79.899 Other long term (current) drug therapy; Z86.16 Personal history of COVID-19
CPT/HCPCS: 36415; 74177; 80053; 83690; 84703; 85025; 96361; 96374; 96375; 99284; J1170; J2765; J3490; J7030; Q9967